=== PATIENT | female | born 1955 | race Caucasian/White ===

== ENCOUNTER 2016-08-11 07:44 | Inpatient (IN) | payer OTHER ==
[2016-08-11] VITALS (9 sets, daily range): BP systolic 117–164; BP diastolic 80–98; PULSE 104–126; RESP 18–22; TEMP 98–98.7; O2SAT 92–94
[~2016-08-11] VITALS: Ht 165.1 cm; Wt 80.2 kg
[~2016-08-11 07:44] MED LIST: ALBU0.086 NEB; AMBI10TA PO; BUDE.5I INH; LEVO.2 PO; OXYC15TA PO; OXYC40TA20 PO; POLY119S PO; SENN8.6T15 PO; ZOFR4TAB3 SL; ZOLP10TA3 PO; [UNRECOGNIZED DRUG - CODE] IV
[2016-08-11] MEDS ORDERED: OXYC15TA PO (08:15)
[2016-08-11] MEDS ORDERED: OXYC60TA8 PO (08:15)
[2016-08-11] MEDS ORDERED: PRED20 PO (08:15)
[2016-08-11] MEDS ORDERED: PROC10TA PO (08:15)
[2016-08-11] MEDS ORDERED: ZOLP10TA3 PO (08:15)
[2016-08-11] MEDS ORDERED: ZOFR4TAB PO (08:15)
[2016-08-11] MEDS ORDERED: LEVO.2 PO (08:15)
--- NOTE | 2016-08-11 08:15 | PD ---
HPI Chief Complaint: Respiratory Symptoms Time Seen by Provider: 08:14 Travel History International Travel<30 days: No Contact w/Intl Traveler<30days: No Traveled to known affect area: No History of Present Illness HPI 61-year-old female came to the emergency room with history of shortness of breath and fever. Patient has history of metastatic breast cancer and currently going through chemotherapy. Metastasis is to the lung. Patient was afebrile in triage but her heart rate has been in 120s. She looks to be in distress. Oxygen saturation is 94% on room air. Her oncologist is Dr. Grimaldo and patient has asked me to have her involved. Patient says that she has been sick since past 4 days. Her oncologist started her on by mouth ciprofloxacin for URI symptoms. Patient has been taking the antibiotic that she supposed to but symptoms are not improving. No history of chest pain. Her temperature yesterday was 101 and she had taken last Tylenol yesterday. Patient has history of COPD. [facility] Past Medical History Narrative Medical List of her past medical, surgical, social and family history was reviewed from the nursing note. 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) High Cholesterol: No Chemotherapy: Yes Chest Pain: No Congestive Heart Failure: No COPD: No Cerebrovascular Accident: No Diabetes: No Diminished Hearing: No Diverticulitis: Yes Endocrine: No Gastrointestinal Disorders: Yes (diverticulitis) GERD: No Glaucoma: No Genitourinary: No Headaches: Yes Hepatitis: No Hiatal Hernia: No Hypertension: No Immune Disorder: No Implanted Vascular Access Dvce: Yes (PORT RIGHT CHEST) Kidney Stones: No Musculoskeletal: No Neurologic: No Psychiatric: No Reproductive: No Respiratory: Yes (BREAST CA METS TO LUNG; LOBECTOMY R) Immunizations Current: Yes Migraines: Yes Myocardial Infarction: No Radiation Therapy: Yes Renal Failure: No Seizures: No Sickle Cell Disease: No Sleep Apnea: No Thyroid Disease: Yes (HYPOTHYROID) Ulcer: No Tetanus Vaccination: > 5 Years Influenza Vaccination: No PNEUMOCCOCAL Vaccine (Year): 1 Menopausal: Yes Dilation and Curettage (D&C): Yes Past Surgical History Abdominal Surgery: Yes AICD: No Appendectomy: No Arteriovenous Shunt: No Cardiac Surgery: No Cholecystectomy: Yes Ear Surgery: No Endocrine Surgery: No Eye Surgery: No Genitourinary Surgery: No Gynecologic Surgery: Yes (R UPPER lobectomy 2012 mastectomy 2010) Hysterectomy: Yes Insulin Pump: No Joint Replacement: No Mastectomy: Yes (LEFT BREAST) Neurologic Surgery: No Oral Surgery: No Pacemaker: No Thoracic Surgery: Yes (RIGHT LOBECTOMY) Other Surgery: Yes (SINUS SX) Social History Alcohol Use: Yes (RARELY PER PT) Tobacco Use: No Substance Use: No (PT DENIES) Allergies-Medications (Allergen,Severity, Reaction): Coded Allergies: Flagyl (Verified Allergy, Severe, Nausea/Vomiting, 08/11/16) Eribulin (Verified Adverse Reaction, Mild, Itching, 08/11/16) Pt denies allergy Uncoded Allergies: Transpore Tape (Allergy, Mild, Rash, 05/14/16) Comments List of her allergies reviewed from the nursing note. Reported Meds & Prescriptions Reported Meds & Active Scripts Active Reported Dilaudid 4 mg/ml Syringe (Hydromorphone HCl/Pf) 4 Mg/1 Ml Syringe 4 Mg IV PUSH Q4-6H Pulmicort Respules (Budesonide) 0.5 Mg/2 Ml Neb 0.5 Mg NEB Q12HR NEB Albuterol Neb (Albuterol Sulfate) 2.5 Mg/0.5 Ml Neb 2.5 Mg NEB Q4HR NEB PRN Note: The Albuterol Sulfate Inhalation Solution is concentrated and must be diluted. Read complete instructions carefully before using. Cipro (Ciprofloxacin HCl) 250 Mg Tab 250 Mg PO BID Prochlorperazine Maleate 10 Mg Tab 10 Mg PO Q4H PRN Zofran (Ondansetron HCl) 4 Mg Tab 4 Mg PO Q6HR PRN Prednisone 20 Mg Tab 20 Mg PO DAILY Oxycontin (Oxycodone HCl) 60 Mg Tab 60 Mg PO Q12HR Oxycodone (Oxycodone HCl) 15 Mg Tab 15 Mg PO Q6H PRN Zolpidem (Zolpidem Tartrate) 10 Mg Tab 10 Mg PO HS PRN Synthroid (Levothyroxine Sodium) 200 Mcg Tab 200 Mcg PO DAILY Narrative Medication List of her home medications reviewed from the nursing note. Review of Systems Except as stated in HPI: all other systems reviewed are Neg Physical Exam Narrative GENERAL: Awake, alert, moderate distress, anxious SKIN: Focused skin assessment warm/dry. HEAD: Atraumatic. Normocephalic. EYES: Pupils equal and round. No scleral icterus. No injection or drainage. ENT: No nasal bleeding or discharge. Mucous membranes pink and moist. NECK: Trachea midline. No JVD. CARDIOVASCULAR: Regular rate and rhythm. No murmur appreciated. RESPIRATORY: Tachypnea, using accessory muscles, coarse crackles and wheeze heard over the left upper lobe. GASTROINTESTINAL: Abdomen soft, non-tender, nondistended. Hepatic and splenic margins not palpable. MUSCULOSKELETAL: No obvious deformities. No clubbing. No cyanosis. No edema. NEUROLOGICAL: Awake and alert. No obvious cranial nerve deficits. Motor grossly within normal limits. Normal speech. PSYCHIATRIC: Appropriate mood and affect; insight and judgment normal. Data Data Last Documented VS Vital Signs Date Time Temp Pulse Resp B/P Pulse Ox O2 Delivery O2 Flow Rate FiO2 08/11/16 09:18 122 22 118/84 94 Room Air 08/11/16 07:45 98.7 Orders Electrocardiogram (08/11/16 08:21) Complete Blood Count With Diff (08/11/16 08:21) Comprehensive Metabolic Panel (08/11/16 08:21) Lactic Acid Sepsis Protocol (08/11/16 08:21) Urinalysis - C+S If Indicated (08/11/16 08:21) Blood Culture (08/11/16 08:21) Chest, Single Ap (08/11/16 08:21) Blood Glucose (08/11/16 08:21) Ecg Monitoring (08/11/16 08:21) Iv Access Insert/Monitor (08/11/16 08:21) Oximetry (08/11/16 08:21) Oxygen Administration (08/11/16 08:21) Vancomycin Inj (Vancomycin Inj) (08/11/16 08:21) Cefepime Inj (Maxipime Inj) (08/11/16 08:21) Methylprednisolone So Succ Inj (Solumedr (08/11/16 08:30) Albuterol-Ipratropium Neb (Duoneb Neb) (08/11/16 08:30) Sodium Chlor 0.9% 1000 Ml Inj (Ns 1000 M (08/11/16 08:30) Sodium Chlor 0.9% 1000 Ml Inj (Ns 1000 M (08/11/16 08:30) Hydromorphone Pf Inj (Dilaudid Pf Inj) (08/11/16 09:00) Admit Order (Ed Use Only) (08/11/16 10:10) Labs Laboratory Tests Test 08/11/16 08:25 White Blood Count 8.7 TH/MM3 Red Blood Count 4.03 MIL/MM3 Hemoglobin 11.5 GM/DL Hematocrit 35.4 % Mean Corpuscular Volume 87.8 FL Mean Corpuscular Hemoglobin 28.6 PG Mean Corpuscular Hemoglobin 32.6 % Concent Red Cell Distribution Width 15.7 % Platelet Count 206 TH/MM3 Mean Platelet Volume 7.7 FL Neutrophils (%) (Auto) 89.8 % Lymphocytes (%) (Auto) 4.9 % Monocytes (%) (Auto) 4.3 % Eosinophils (%) (Auto) 0.4 % Basophils (%) (Auto) 0.6 % Neutrophils # (Auto) 7.8 TH/MM3 Lymphocytes # (Auto) 0.4 TH/MM3 Monocytes # (Auto) 0.4 TH/MM3 Eosinophils # (Auto) 0.0 TH/MM3 Basophils # (Auto) 0.1 TH/MM3 CBC Comment DIFF FINAL Differential Comment Sodium Level 138 MEQ/L Potassium Level 3.8 MEQ/L Chloride Level 99 MEQ/L Carbon Dioxide Level 32.9 MEQ/L Anion Gap 6 MEQ/L Blood Urea Nitrogen 13 MG/DL Creatinine 0.75 MG/DL Estimat Glomerular Filtration 78 ML/MIN Rate Random Glucose 173 MG/DL Lactic Acid Level 2.1 mmol/L Calcium Level 9.0 MG/DL Total Bilirubin 0.4 MG/DL Aspartate Amino Transf 17 U/L (AST/SGOT) Alanine Aminotransferase 25 U/L (ALT/SGPT) Alkaline Phosphatase 80 U/L Total Protein 7.3 GM/DL Albumin 3.5 GM/DL [facility] Medical Decision Making Medical Screen Exam Complete: Yes Emergency Medical Condition: Yes Medical Record Reviewed: Yes Interpretation(s) Twelve-lead EKG was reviewed by me. Normal sinus rhythm, normal axis, tachycardia, nonspecific ST-T wave changes. Heart rate of 125 bpm. Differential Diagnosis Pneumonia, sepsis, neutropenic fever Narrative Course 8:50 AM I discussed the case with Dr. Grimaldo. 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 Her cancer at this point is well controlled but did continue with the chemotherapy just to be on the safe side. 9:49 AM blood test results are back. Patient's lactic acid is elevated to some extent. Chest x-ray does not show any new changes. At this point I would prefer the patient to be admitted. Her heart rate was in [address] Grimaldo patient's baseline heart rate is in 100s. So her presenting heart rate and the current heart rate is more than her usual. Awaiting for the hospitalist to call back. Critical Care Narrative Aggregate critical care time was 30 minutes. Time to perform other separately billable procedures was not included in the critical care time. My time did not include minutes spent treating any other patients simultaneously or on activities that did not directly contribute to the patient's treatment. The services I provided to this patient were to treat and/or prevent clinically significant deterioration that could result in: Sepsis I provided critical care services requiring my management, as noted below: Chart data review, documentation time, medication orders and management, vital sign assessments/reviewing monitor data, ordering and reviewing lab tests, ordering and interpreting/reviewing x-rays and diagnostic studies, care of the patient and discussion of the patient with the admitting physicians. Procedures EKG Prior to Arrival: No Physician Communication Physician Communication Dr. Grimaldo Diagnosis Primary Impression: Sepsis Qualified Code: A41.9 - Sepsis, due to unspecified organism Additional Impression: Metastatic breast cancer Admitting Information Admitting Physician Requests: Cherry George MD Aug 11, 2016 08:15
[2016-08-11] MEDS ORDERED: CIPR250T52 PO (08:16)
[2016-08-11] MEDS ORDERED: VANCOMYCIN INJ 1 MG in SODIUM CHLOR 0.9% 250 ML INJ 250 ML IV STA (08:21)
[2016-08-11] MEDS ORDERED: [UNRECOGNIZED DRUG - CODE] IV PUSH (08:21)
[2016-08-11] MEDS ORDERED: BUDE.5I NEB (08:21)
[2016-08-11] MEDS ORDERED: CEFEPIME INJ 2,000 MG in SODIUM CHLORIDE 0.9% INJ 100 ML IV STA (08:21)
[2016-08-11] MEDS ORDERED: ALBU.5I NEB (08:21)
[2016-08-11] MEDS ORDERED: methylPREDNISolone SOD SUCC 125 MG/2 ML VIAL IVP ONE (08:30)
[2016-08-11] MEDS ORDERED: SODIUM CHLOR 0.9% 1000 ML INJ 1,000 ML IV ONE ×2 (08:30)
[2016-08-11] MEDS: RESP: ALBUTEROL 2.5 MG/IPRATROPIUM 0.5 MG NEB (SCH) INH (08:39)
[2016-08-11 08:40] LABS: AUTOMATED NEUTROPHIL # 7.8 TH/MM3 (1.8-7.7); BASOPHIL # 0.1 TH/MM3 (0-0.2); BASOPHIL % 0.6 % (0.0-2.0); EOSINOPHIL % 0.4 % (0.0-4.0); HEMATOCRIT 35.4 % (35.0-46.0); HEMO FLAGS DIFF FINAL; LYMPH % 4.9 % (9.0-44.0); LYMPHOCYTE # 0.4 TH/MM3 (1.0-4.8); MEAN CELL VOLUME 87.8 FL (80.0-100.0); MEAN CORPUSCULAR HEMOGLOBIN 28.6 PG (27.0-34.0); MEAN CORPUSCULAR HGB CONC 32.6 % (32.0-36.0); MONO % 4.3 % (0.0-8.0); NEUT % 89.8 % (16.0-70.0); PLATELET COUNT 206 TH/MM3 (150-450); RED BLOOD COUNT 4.03 MIL/MM3 (4.00-5.30); RED CELL DISTRIBUTION WIDTH 15.7 % (11.6-17.2); WHITE BLOOD COUNT 8.7 TH/MM3 (4.0-11.0)
[2016-08-11 08:53] LABS: ALT (GPT) 25 U/L (10-53); ANION GAP 6 MEQ/L (5-15); AST (GOT) 17 U/L (15-37); BICARBONATE 32.9 MEQ/L (21.0-32.0); BLOOD UREA NITROGEN 13 MG/DL (7-18); CHLORIDE 99 MEQ/L (98-107); GLOMERULAR FILTRATION RATE 78 ML/MIN (>89); POTASSIUM 3.8 MEQ/L (3.5-5.1); SODIUM (NA) 138 MEQ/L (136-145)
[2016-08-11 08:56] LABS: ALKALINE PHOSPHATASE 80 U/L (45-117); TOTAL BILIRUBIN ADULT 0.4 MG/DL (0.2-1.0)
[2016-08-11] MEDS ORDERED: HYDROmorphone HCL PF 4 MG/ML VIAL IV PUSH ONE (09:00)
--- NOTE | 2016-08-11 09:43 | RADRPT ---
EXAM DATE/TIME: 08/11/2016 08:35 [facility] COMPARISON: CHEST SINGLE AP, February 05, 2015, 14:50. INDICATIONS : Shortness of breath. MEDICAL HISTORY : Carcinoma, breast. Cardiovascular disease. Asthma SURGICAL HISTORY : Lobectomy. Mastectomy, left. Infusaport ENCOUNTER: Initial ACUITY: 2 days PAIN SCORE: 0/10 LOCATION: Bilateral chest FINDINGS: Patient has a [id number]-Hjao in the right chest. There is elevation of the right hemidiaphragm. Cons olidative changes are seen in right upper lobe. The left lung is clear. Heart and pulmonary vascula rity are normal. CONCLUSION: 1. Stable chest when compared to 02/05/15. Fezygy-C-Huuy in good position. 2. Consolidative changes are seen in most of the upper lobe probably postsurgical in nature. Franky Winston MD FACR on August 11, 2016 at 9:30 Board Certified Radiologist. This report was verified electronically.
[2016-08-11] MEDS ORDERED: SODIUM CHLORIDE 0.9% FLUSH 10 ML FLUSH IV FLUSH PRN (10:30)
[2016-08-11] MEDS ORDERED: ONDANSETRON HCL 4 MG/2 ML VIAL IVP PRN (10:30)
[2016-08-11] MEDS ORDERED: ACETAMINOPHEN 325 MG TAB PO PRN ×2 (10:30)
[2016-08-11] MEDS ORDERED: NALOXONE HCL 0.4 MG/ML AMP IV PRN (10:30)
[2016-08-11] MEDS ORDERED: MAGNESIUM HYDROXIDE SUSP 30 ML CUP PO PRN (10:30)
[2016-08-11] MEDS ORDERED: ENALAPRILAT 1.25 MG/ML VIAL IV PUSH PRN (10:30)
[2016-08-11 10:34] LABS: LACTIC ACID GHOST NOT REPORTABLE
[2016-08-11 11:30] LABS: BLOOD, URINE NEG (NEG); GLUCOSE,URINE NEG (NEG); HYALINE CAST, URINE 1 /lpf (RARE); KETONE, URINE NEG (NEG); MUCUS URINE FEW /lpf (OCC); NITRITE,URINE NEG (NEG); SQUAMOUS EPITHELIAL CELL URINE <1 /hpf (0-5); URINE COLOR YELLOW (YELLW/STRAW)
[2016-08-11 11:33] LABS: COMMENT (UR) CATH-CULTURE IND; CULTURE IF INDICATED CATH CULTURE IND
[2016-08-11] MEDS: RESP: ALBUTEROL 2.5 MG/IPRATROPIUM 0.5 MG NEB (PRN) NEB ×2 (13:04→23:38)
[2016-08-11] MEDS: HYDROmorphone HCL PF 4 MG/ML VIAL IV PUSH SCH ×2 (14:59→20:38)
--- NOTE | 2016-08-11 15:07 | HHI.HP ---
HPI Service [facility] Primary Care Physician Hussein Hansen MD Admission Diagnosis sepsis, respiratory symptoms, history of breast cancer Diagnoses: (1) Sepsis (2) Community acquired bacterial pneumonia (3) Failure of outpatient treatment (4) Metastatic breast cancer Chief Complaint: Worsening cough production Travel History International Travel<30 Days: No Contact w/Intl Traveler <30 Da: No Traveled to Known Affected Are: No Sepsis Criteria SIRS Criteria (2 or more): Heart rate over 90, RR > 20 or PaCO2 < 32 Sepsis Criteria (SIRS+source): Infect source susp/known Criteria Outcome: Meets sepsis criteria History of Present Illness 61-year-old female with a history of metastasis breast cancer, radiation induced pneumonitis presented to the ED for evaluation of worsening cough production described as greenish and brown, subjective fever along with shortness of breath. Patient was diagnosed with upper respiratory infection on 08/07/16 and started on Cipro 500 mg by mouth twice a day however continue to have worsening URI symptoms despite treatment with Tylenol for the fever of 100.1 yesterday 08/10/16. Patient also reported worsening of shortness of breath despite nebulizer treatment. On admissions, vitals temperature 98.7, HR 126, RR 20, BP 117/88 with oxygen saturation room air 94%. Abnormal lab include lactic acid 2.1. Patient denies any hematuria, GI bleed. Review of Systems Except as stated in HPI: all other systems reviewed are Neg Past Family Social History Past Medical History Alopecia Anemia Asthma Chronic pain on opioids Diverticulosis Hyperglycemia Hypothyroidism Migraines Breast cancer Past Surgical History Cholecystectomy Hysterectomy Knee surgery Tonsillectomy Bilateral tubal ligation Right upper lobectomy in 2011 Mastectomy 2010 Reported Medications Dilaudid 4 mg/ml Syringe (Hydromorphone HCl/Pf) 4 Mg/1 Ml Syringe 4 Mg IV PUSH Q4-6H Pulmicort Respules (Budesonide) 0.5 Mg/2 Ml Neb 0.5 Mg NEB Q12HR NEB Albuterol Neb (Albuterol Sulfate) 2.5 Mg/0.5 Ml Neb 2.5 Mg NEB Q4HR NEB PRN Note: The Albuterol Sulfate Inhalation Solution is concentrated and must be diluted. Read complete instructions carefully before using. Cipro (Ciprofloxacin HCl) 250 Mg Tab 250 Mg PO BID Prochlorperazine Maleate 10 Mg Tab 10 Mg PO Q4H PRN Zofran (Ondansetron HCl) 4 Mg Tab 4 Mg PO Q6HR PRN Prednisone 20 Mg Tab 20 Mg PO DAILY Oxycontin (Oxycodone HCl) 60 Mg Tab 60 Mg PO Q12HR Oxycodone (Oxycodone HCl) 15 Mg Tab 15 Mg PO Q6H PRN Zolpidem (Zolpidem Tartrate) 10 Mg Tab 10 Mg PO HS PRN Synthroid (Levothyroxine Sodium) 200 Mcg Tab 200 Mcg PO DAILY Allergies: Coded Allergies: Flagyl (Verified Allergy, Severe, Nausea/Vomiting, 08/11/16) Eribulin (Verified Adverse Reaction, Mild, Itching, 08/11/16) Pt denies allergy Uncoded Allergies: Transpore Tape (Allergy, Mild, Rash, 05/14/16) Family History Both parents and mom from complication of coronary heart disease Social History Alcohol Use: Yes (RARELY PER PT) Tobacco Use: No Substance Use: No (PT DENIES) Physical Exam Vital Signs Vital Signs Date Time Temp Pulse Resp B/P Pulse Ox O2 Delivery O2 Flow Rate FiO2 08/11/16 11:46 98.1 118 20 125/81 94 Room Air 08/11/16 10:45 18 08/11/16 09:18 122 22 118/84 94 Room Air 08/11/16 08:33 18 94 Room Air 08/11/16 08:33 94 Room Air 08/11/16 08:00 125 16 94 Room Air 08/11/16 07:45 98.7 126 20 117/88 94 Room Air Physical Exam GENERAL: This is a well-nourished, well-developed patient, in no apparent distress. SKIN: No rashes, ecchymoses or lesions. Cool and dry. HEAD: Atraumatic. Normocephalic. No temporal or scalp tenderness. EYES: Pupils equal round and reactive. Extraocular motions intact. No scleral icterus. No injection or drainage. ENT: Nose without bleeding, purulent drainage or septal hematoma. Throat without erythema, tonsillar hypertrophy or exudate. Uvula midline. Airway patent. NECK: Trachea midline. No JVD or lymphadenopathy. Supple, nontender, no meningeal signs. CARDIOVASCULAR: Regular rate and rhythm without murmurs, gallops, or rubs. RESPIRATORY: Clear to auscultation. Breath sounds decrease bilaterally. + wheezes, rales, GASTROINTESTINAL: Abdomen soft, non-tender, nondistended. No hepato-splenomegaly , or palpable masses. No guarding. MUSCULOSKELETAL: Extremities without clubbing, cyanosis, or edema. No joint tenderness, effusion, or edema noted. No calf tenderness. Negative Homans sign bilaterally. NEUROLOGICAL: Awake and alert. Cranial nerves II through XII intact. Motor and sensory grossly within normal limits. Five out of 5 muscle strength in all muscle groups. Normal speech. Laboratory Laboratory Tests Test 08/11/16 08/11/16 08/11/16 08:25 10:40 11:03 White Blood Count 8.7 Red Blood Count 4.03 Hemoglobin 11.5 Hematocrit 35.4 Mean Corpuscular Volume 87.8 Mean Corpuscular Hemoglobin 28.6 Mean Corpuscular Hemoglobin 32.6 Concent Red Cell Distribution Width 15.7 Platelet Count 206 Mean Platelet Volume 7.7 Neutrophils (%) (Auto) 89.8 Lymphocytes (%) (Auto) 4.9 Monocytes (%) (Auto) 4.3 Eosinophils (%) (Auto) 0.4 Basophils (%) (Auto) 0.6 Neutrophils # (Auto) 7.8 Lymphocytes # (Auto) 0.4 Monocytes # (Auto) 0.4 Eosinophils # (Auto) 0.0 Basophils # (Auto) 0.1 CBC Comment DIFF FINAL Differential Comment Sodium Level 138 Potassium Level 3.8 Chloride Level 99 Carbon Dioxide Level 32.9 Anion Gap 6 Blood Urea Nitrogen 13 Creatinine 0.75 Estimat Glomerular Filtration 78 Rate Random Glucose 173 Lactic Acid Level 2.1 1.6 Calcium Level 9.0 Total Bilirubin 0.4 Aspartate Amino Transf 17 (AST/SGOT) Alanine Aminotransferase 25 (ALT/SGPT) Alkaline Phosphatase 80 Total Protein 7.3 Albumin 3.5 Urine Color YELLOW Urine Turbidity CLEAR Urine pH 6.0 Urine Specific [place] 1.015 Urine Protein NEG Urine Glucose (UA) NEG Urine Ketones NEG Urine Occult Blood NEG Urine Nitrite NEG Urine Bilirubin NEG Urine Urobilinogen LESS THAN 2.0 Urine Leukocyte Esterase TRACE Urine RBC LESS THAN 1 Urine WBC 7 Urine Squamous Epithelial <1 Cells Urine Hyaline Casts 1 Urine Mucus FEW Microscopic Urinalysis Comment CATH-CULTURE IND Date/Time Procedure Status Source Growth 08/11/16 10:40 Urine Culture Received Urine Catheterized Urine Pending 08/11/16 08:30 Aerobic Blood Culture Received Blood Peripheral Pending 08/11/16 08:30 Anaerobic Blood Culture Received Blood Peripheral Pending Result Diagram: 08/11/1682408/11/16824 Assessment and Plan Problem List: (1) Community acquired bacterial pneumonia ICD Code: J15.9 Status: Acute (2) Failure of outpatient treatment ICD Code: Z78.9 Status: Acute (3) Sepsis ICD Code: A41.9 Status: Acute (4) Metastatic breast cancer ICD Code: C50.919 Status: Acute Assessment and Plan 61-year-old female with Sepsis: Meets sepsis criteria; source (PNA) Heart rate over 90, RR > 20 or PaCO2 < 32, lactic acid 2.1; status post cefepime IV 1 in ED, continue with antibiotics pending culture report Community-acquired pneumonia Outpatient therapy failure for upper respiratory infection Chest x-ray noted and review by me with consolidative changes in upper lung Cefepime 2 mg IV every 8H Check pneumococcal and Legionella urinary antigens as well as Flu A and B antigens Maintain oxygen saturation above 90% History of radiation induced pneumonitis COPD exacerbation Start Solu-Medrol 40 mg every 12 hour, cefepime,Symbicort, Mucinex, DuoNeb scheduled and when necessary Chronic pain syndrome Dilaudid schedule IV and OxyContin for breakthrough pain Scheduled softener Hypothyroidism Resume Synthroid History of metastasis breast cancer Consult patient's oncologist DVT prophylaxis: Heparin Code Status Full code Discussed Condition With Patient, ED physician Physician Certification 2 Midnight Certification Type: Admission for Inpatient Services Order for Inpatient Services The services are ordered in accordance with Medicare regulations or non- Medicare payer requirements, as applicable. In the case of services not specified as inpatient-only, they are appropriately provided as inpatient services in accordance with the 2-midnight benchmark. Estimated LOS (days): 2 days is the estimated time the patient will need to remain in the hospital, assuming treatment plan goals are met and no additional complications. Post-Hospital Plan: Not yet determined Problem Qualifiers (1) Sepsis: Qualified Code: A41.9 - Sepsis, due to unspecified organism Jeremy Nunn MD Aug 11, 2016 15:07
[2016-08-11] MEDS: oxyCODONE HCL 20 MG CONTROLLED RELEASE TAB PO PRN ×2 (18:14→21:54)
[2016-08-11] MEDS: CEFEPIME INJ 2,000 MG in SODIUM CHLORIDE 0.9% INJ 100 ML IV SCH (18:34)
[2016-08-11] MEDS ORDERED: SODIUM CHLOR 0.9% 250 ML INJ 250 ML IV ONE (19:00)
[2016-08-11] MEDS: RESP: BUDESONIDE 0.5 MG/2 ML NEB NEB SCH (19:02)
[2016-08-11] MEDS: RESP: ALBUTEROL 2.5 MG/IPRATROPIUM 0.5 MG NEB (SCH) NEB (19:02)
[2016-08-11] MEDS: methylPREDNISolone SOD SUCC 40 MG/1 ML VIAL IV PUSH SCH (20:37)
[2016-08-11] MEDS: ENOXAPARIN SODIUM 40 MG/0.4 ML SYRINGE SQ SCH (20:37)
[2016-08-11] MEDS: LACTOBACILLUS ACIDOPHILUS TAB PO SCH (20:38)
[2016-08-11] MEDS: SODIUM CHLORIDE 0.9% FLUSH 10 ML FLUSH IV FLUSH SCH (20:39)
[2016-08-11] MEDS ORDERED: IOHEXOL 350 MG/ML 10 ML VIAL (for RAD DIAG) IV ONE (22:19)
--- NOTE | 2016-08-11 22:30 | RADRPT ---
EXAM DATE/TIME: 08/11/2016 22:12 [facility] COMPARISON: No previous studies available for comparison. INDICATIONS : Hypoxia. IV CONTRAST: 73 cc Omnipaque 350 (iohexol) IV RADIATION DOSE: 6.83 CTDIvol (mGy) MEDICAL HISTORY : Cardiovascular disease. Carcinoma, breast. SURGICAL HISTORY : Mastectomy, left. Lobectomy. ENCOUNTER: Initial ACUITY: 1 day PAIN SCALE: 0/10 LOCATION: chest TECHNIQUE: Volumetric scanning of the chest was performed. Using automated exposure control and adjustment of t he mA and/or kV according to patient size, radiation dose was kept as low as reasonably achievable to obtain optimal diagnostic quality images. FINDINGS: Chronic scarring, pleural thickening and volume loss again noted on the right. Left lung is clear. No pneumothorax. No pleural effusion. Heart size stable, normal. No adenopathy demonstrated. There is a right subclavian central venous catheter with tip in the superior vena cava. Left mastectomy changes again noted. No lytic or sclerotic lesion seen of the visualized osseous structures. CONCLUSION: No acute abnormality demonstrated. Chronic scarring, pleural thickening and volume loss again noted o n the left. Previous left mastectomy. Corey Loomis MD on August 11, 2016 at 22:25 Board Certified Radiologist. This report was verified electronically.
[2016-08-12] VITALS (8 sets, daily range): BP systolic 122–143; BP diastolic 73–90; PULSE 80–116; RESP 18–20; TEMP 97.3–98.2; O2SAT 93–96
[2016-08-12] MEDS: HYDROmorphone HCL PF 4 MG/ML VIAL IV PUSH SCH ×5 (03:11→21:23)
[2016-08-12] MEDS: CEFEPIME INJ 2,000 MG in SODIUM CHLORIDE 0.9% INJ 100 ML IV SCH ×3 (03:11→15:51)
[2016-08-12] MEDS: LEVOTHYROXINE SODIUM 200 MCG TAB PO SCH (06:08)
[2016-08-12 06:27] LABS: AUTOMATED NEUTROPHIL # 9.2 TH/MM3 (1.8-7.7); BASOPHIL % 0.3 % (0.0-2.0); HEMATOCRIT 32.8 % (35.0-46.0); HEMO FLAGS DIFF FINAL; LYMPH % 4.6 % (9.0-44.0); LYMPHOCYTE # 0.5 TH/MM3 (1.0-4.8); MEAN CELL VOLUME 87.5 FL (80.0-100.0); MEAN CORPUSCULAR HEMOGLOBIN 29.9 PG (27.0-34.0); MEAN CORPUSCULAR HGB CONC 34.2 % (32.0-36.0); MONO % 3.5 % (0.0-8.0); NEUT % 91.6 % (16.0-70.0); PLATELET COUNT 231 TH/MM3 (150-450); RED BLOOD COUNT 3.75 MIL/MM3 (4.00-5.30); RED CELL DISTRIBUTION WIDTH 16.1 % (11.6-17.2)
[2016-08-12 06:51] LABS: ALT (GPT) 24 U/L (10-53); ANION GAP 5 MEQ/L (5-15); AST (GOT) 15 U/L (15-37); BICARBONATE 31.9 MEQ/L (21.0-32.0); BLOOD UREA NITROGEN 14 MG/DL (7-18); CHLORIDE 100 MEQ/L (98-107); GLOMERULAR FILTRATION RATE 82 ML/MIN (>89); POTASSIUM 4.3 MEQ/L (3.5-5.1); SODIUM (NA) 137 MEQ/L (136-145)
--- NOTE | 2016-08-12 06:52 | MB ---
cc: ROCKY FLEMING RUBY ANNE E. M.D. DATE OF CONSULTATION 08/11/[address] Rocky Fleming CHIEF COMPLAINT Dr. Fleming requested consultation for Mrs. Beavers regarding right upper lung pneumonia and respiratory insufficiency. 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 She had definitive treatment in the right upper lung area. She has been on maintenance Halaven ever since. Her last CT/PET scan from July 08, 2016, shows no progression. She has no distant site of metastatic disease. She has chronic changes in the right upper lung which is the main reason for her symptoms. She was last seen in clinic on Thursday prior to her next cycle of chemotherapy. She received a dose of Halaven. She was already having some upper respiratory symptoms. She was not febrile. She was, however, on steroids of 20 mg of prednisone coordinated by Dr. Lala, her telecasting technician. Over the weekend she has started to feel bad. She had increasing shortness of breath and pain and discomfort in the chest. She describes her temperature as 100.1. This is despite being on Cipro. On admission her temperature is 98.7. She feels hot. She was very tachycardiac and her tachycardia improved after starting antibiotic therapy. Cultures were obtained, respiratory treatment initiated. Her pain was better controlled. She has had a bowel movement this morning. She needs bowel regimen as she tends to become constipated severely. The rest of her review of systems is negative. She reports being very busy at work recently. PAST MEDICAL HISTORY 1. Chemotherapy-induced anemia. 2. Asthma. 3. Right upper lung radiation pneumonitis. 4. Chronic pain. 5. Chronic anxiety. 6. Diverticulosis. 7. Hypothyroidism. 8. Migraine headaches. 9. Metastatic breast cancer. 10. DCIS. PAST SURGICAL HISTORY 1. Bronchoscopy. 2. Colonoscopy. 3. Cholecystectomy. 4. Hysterectomy. 5. Knee surgery. 6. Tonsillectomy. 7. tubal ligation. 8. Right upper lobectomy. 9. Mastectomy. ALLERGIES FLAGYL. TRANSPORE. SOCIAL HISTORY She denies any tobacco, alcohol or illicit drug use. She lives with her . FAMILY HISTORY Both parents are . No family history of breast cancer. CURRENT MEDICATIONS 1. Cefepime. 2. OxyContin 60 mg q.12 hours. 3. Hydromorphone 4 mg q.6 hours p.r.n. pain. 4. Albuterol. 5. Levothyroxine. 6. Lactinex. 7. Solu-Medrol 40 mg q.12 hours. 8. Protonix. 9. Tiffanie-Colace. PHYSICAL EXAMINATION VITAL SIGNS: Temperature 98.6, heart rate 104, respiratory rate 20, blood pressure 132/81, saturation 92%. GENERAL: Ms. Beavers is a well-developed, well-nourished woman who looks more tired than on previous examination. She has sparse eyebrows. Her a complexion is pale. HEENT: Her pupils are round, reactive to light and accommodation. Oropharynx is clear. NECK: Supple. LUNGS: With bilateral rhonchi and wheezing. There are transmitted sounds on the left side. CARDIOVASCULAR: Exam reveals a tachycardia. Left arm lymphedema. Significant chronic skin changes of the left chest wall. ABDOMEN: Benign. LOWER EXTREMITIES: With no edema. LABORATORY DATA Significant for a mild anemia with hemoglobin of 11.5, MCV is normal. White blood cell count and platelet count are normal. Chemistry is significant for elevated lactic acid at 2.1, glucose 173. Liver functions are normal. ASSESSMENT AND PLAN Mrs. Beavers is a 61-year-old woman with a history of metastatic/metaplastic breast cancer apparently in remission. She is on Halaven maintenance. Her last treatment was three days ago. I had a lengthy discussion with Mrs. Beavers, her upper respiratory symptoms. She may have postobstructive pneumonia. I am concerned about the right upper lung chronic consolidation. I will obtain a CT scan of the chest. The chest x-ray is not sensitive enough to evaluate the extent of her disease. Supervisor Whipped [employer]pping will be consulted. Her telecasting technician Dr. Shorty Lala does not come to the hospital currently. The case was discussed with Dr. Lala who recommended consulting the on-call telecasting technician. Sputum specimen will be sent if she is able to bring it up. In the meantime empiric antibiotic is started. We will monitor closely for fevers. She has had her port in for a long time. Cultures so far are negative up. We will repeat cultures if fever again occurs while on current antibiotic regimen. Her bowel regimen includes MiraLax. This will be ordered to continue. DVT prophylaxis will be started. Her questions were answered to her satisfaction. MD SARAH Bain/ALEXI /6:45 PM /6:43 AM
[2016-08-12 06:53] LABS: ALKALINE PHOSPHATASE 77 U/L (45-117); TOTAL BILIRUBIN ADULT 0.3 MG/DL (0.2-1.0)
[2016-08-12] MEDS: RESP: BUDESONIDE 0.5 MG/2 ML NEB NEB SCH ×2 (08:07→19:52)
[2016-08-12] MEDS: RESP: ALBUTEROL 2.5 MG/IPRATROPIUM 0.5 MG NEB (SCH) NEB ×3 (08:07→19:52)
--- NOTE | 2016-08-12 08:18 | MB ---
cc: ELVA LIN,CHRISTIAN Reeder M.D. DATE OF CONSULTATION: 08/11/[address] Grimaldo REASON FOR CONSULTATION Lung infiltrate. HISTORY OF PRESENT ILLNESS Ms. Beavers is a 62-year-old female with a history of metastatic breast cancer. She also developed metastasis in the right lung and she had a right upper lobectomy done in [place]. She says that she has been cancer-free for three years. She is getting chemotherapy with maintenance Halaven. She started having cough and congestion, worsening of shortness of breath and had a fever at home. With these symptoms she came to the hospital. She had a chest x-ray done. It shows stable chest with consolidative changes seen in most of the upper lobe, probably postsurgical in nature. Her CBC showed WBC count 8.7, hemoglobin 11.5, hematocrit 35.4, MCV 87, platelet count 206. Sodium 130, potassium 3.8, chloride 99, CO2 32.9, BUN 13, creatinine 0.75. PAST MEDICAL HISTORY 1. History of metastatic breast cancer. 2. History of right upper lobe lobectomy for removal of metastasis followed by radiation treatment. 3. Hysterectomy. 4. Cholecystectomy. 5. Scraping of the knee. 6. Chronic pain. 7. COPD and asthma; she requires frequent courses of steroids. MEDICATIONS 1. Protonix 40 mg a day. 2. Levothyroxine 200 mcg a day. 3. Solu-Medrol q.12h. 4. Nebulizer treatment. 5. Albuterol and Atrovent nebulizer treatment. 6. Cefepime 2 grams q.8h. 7. Oxycodone for pain. 8. Dilaudid p.r.n. for pain. ALLERGIES 1. ERIBULIN. 2. FLAGYL. 3. TRANSPORE TAPE. SOCIAL HISTORY She is . 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 Has a remote history of smoking. FAMILY HISTORY Has a son and daughter. REVIEW OF SYSTEMS She gets short of breath with activity. She does not require any oxygen, requires frequent courses of steroids. No seizure or stroke. No DVT or pulmonary embolism. PHYSICAL EXAMINATION GENERAL: A well-developed, well-nourished, anxious female, not in acute distress. VITAL SIGNS: Blood pressure 132/81, heart rate 104, respirations 22, temperature 98.6. Saturation 94% on room air. HEENT: Pupils are equal and reactive to light. Oral mucosa and nasal mucosa normal. NECK: Supple. JVP not raised. CHEST: She has bilateral scattered rhonchi and rales. She has a mastectomy. She has an Buunlt-R-Xaxx on the right side. CV: S1, S2 is normal. ABDOMEN: Benign. EXTREMITIES: No edema. IMPRESSION 1. Lung infiltrate, possible pneumonia, possible underlying consolidative changes because of postsurgical changes. 2. Status post right upper lobectomy. 3. History of CA of the breast with metastatic disease. 4. History of chronic pain. 5. Anxiety disorder. PLAN I discussed with the patient. She is going to go for a CT scan of the chest. Will review the CT scan. Continue her antibiotic IV, Solu-Medrol and aerosol treatment. Monitor her CBC. Further treatment will depend on the course in the hospital. Thank you Dr. Grimaldo for this consult. MD XAVIER Carbone/BT /8:38 PM /8:01 AM OCTAVIO
--- NOTE | 2016-08-12 08:51 | HHI.PR ---
Subjective Remarks Follow-up community-acquired bacteremia pneumonia 08/12/16-patient seen and examined, afebrile, positive for nonproductive cough, insomnia overnight Objective Vitals Vital Signs Date Time Temp Pulse Resp B/P Pulse Ox O2 Delivery O2 Flow Rate FiO2 08/12/16 05:20 97.4 104 18 129/79 94 08/11/16 23:55 98.0 111 18 123/83 92 08/11/16 21:18 98.5 116 18 164/98 92 148/86 08/11/16 20:00 Room Air 08/11/16 20:00 114 08/11/16 16:00 98.6 104 20 132/81 92 08/11/16 11:48 98.3 116 20 123/80 92 08/11/16 11:46 98.1 118 20 125/81 94 Room Air 08/11/16 10:45 18 08/11/16 09:18 122 22 118/84 94 Room Air I/O 08/11/16 08/11/16 08/11/16 08/12/16 08/12/16 08/12/16 07:00 15:00 23:00 07:00 15:00 23:00 Intake Total 720 ml 600 ml 480 ml Output Total 800 ml Balance 720 ml 600 ml -320 ml Intake Oral 720 ml 600 ml 480 ml IV Total 0 ml Output Urine Total 800 ml # Voids 4 4 # Bowel Movements 0 0 0 Result Diagram: 08/12/16 0615 08/12/16 0615 Imaging Last Impressions Chest X-Ray 08/11/16 0821 Signed Impressions: Service Date/Time: Thursday, August 11, 2016 08:35 - CONCLUSION: 1. Stable chest when compared to 02/05/15. [id number] in good position. 2. Consolidative changes are seen in most of the upper lobe probably postsurgical in nature. Franky Winston MD FACR Chest CT 08/11/16 0000 Signed Impressions: Service Date/Time: Thursday, August 11, 2016 22:12 - CONCLUSION: No acute abnormality demonstrated. Chronic scarring, pleural thickening and volume loss again noted on the left. Previous left mastectomy. Corey Loomis MD Objective Remarks GENERAL: NAD SKIN: Warm and dry. HEAD: Normocephalic. EYES: No scleral icterus. No injection or drainage. NECK: Supple, trachea midline. No JVD or lymphadenopathy. CARDIOVASCULAR: Regular rate and rhythm without murmurs, gallops, or rubs. RESPIRATORY: Breath sounds decreased bilaterally. Wheezings, GASTROINTESTINAL: Abdomen soft, non-tender, nondistended. MUSCULOSKELETAL: No cyanosis, or edema. BACK: Nontender without obvious deformity. No CVA tenderness. A/P Problem List: (1) Community acquired bacterial pneumonia ICD Code: J15.9 Status: Acute (2) Failure of outpatient treatment ICD Code: Z78.9 Status: Acute (3) Sepsis ICD Code: A41.9 Status: Acute (4) Metastatic breast cancer ICD Code: C50.919 Status: Acute Assessment and Plan 61-year-old female with Sepsis: Meets sepsis criteria; source (PNA) Heart rate over 90, RR > 20 or PaCO2 < 32, lactic acid 2.1; status post cefepime IV 1 in ED, continue with antibiotics pending culture report Community-acquired pneumonia Outpatient therapy failure for upper respiratory infection Chest x-ray with consolidative changes in upper lung CT chest noted and reviewed by me with finding of No acute abnormality demonstrated. Chronic scarring, pleural thickening and volume loss again noted on the left. Cefepime 2 mg IV every 8H Pneumococcal and Legionella urinary antigens pending. Flu A and B antigens negative Maintain oxygen saturation above 90% Appreciate input from pulmonary medicine History of radiation induced pneumonitis COPD exacerbation On Solu-Medrol 40 mg every 12 hour, cefepime,Symbicort, Mucinex, DuoNeb scheduled and when necessary CT chest noted and review Appreciate input from pulmonary medicine Steroid-induced hyperglycemia: Start prophylactic insulin sliding scale low Chronic pain syndrome Dilaudid schedule IV and OxyContin for breakthrough pain Scheduled softener Hypothyroidism Continue Synthroid Insomnia: Ambien when necessary History of metastasis breast cancer Appreciate input from patient's oncologist DVT prophylaxis: Lovenox Problem Qualifiers (1) Sepsis: Qualified Code: A41.9 - Sepsis, due to unspecified organism Jeremy Nunn MD Aug 12, 2016 08:51
[2016-08-12] MEDS ORDERED: POLYETHYLENE GLYCOL 17 GM PKG PO SCH (09:00)
[2016-08-12] MEDS ORDERED: DEXTROSE 50% IN WATER 50 ML VIAL(D50) IV PRN (09:00)
[2016-08-12] MEDS ORDERED: PANTOPRAZOLE SOD 40 MG DELAYED RELEASE TAB PO SCH (09:00)
[2016-08-12] MEDS ORDERED: GLUCAGON 1 MG/ML VIAL OTHER PRN (09:00)
--- NOTE | 2016-08-12 09:14 | PD.ONC.PN ---
Subjective Subjective Remarks Afebrile overnight. Patient continuing to have wet cough. She also has pain in the chest, improved with dilaudid pain medication. Not requiring supplemental O2. Objective Data Date Time Temp Pulse Resp B/P Pulse Ox O2 Delivery O2 Flow Rate FiO2 08/12/16 08:05 98.2 80 20 122/73 95 08/12/16 05:20 97.4 104 18 129/79 94 08/11/16 23:55 98.0 111 18 123/83 92 08/11/16 21:18 98.5 116 18 164/98 92 148/86 08/11/16 20:00 Room Air 08/11/16 20:00 114 08/11/16 16:00 98.6 104 20 132/81 92 08/11/16 11:48 98.3 116 20 123/80 92 08/11/16 11:46 98.1 118 20 125/81 94 Room Air 08/11/16 10:45 18 08/11/16 09:18 122 22 118/84 94 Room Air Result Diagram: 08/12/16 0615 08/12/16 0615 Laboratory Results Laboratory Tests Test 08/11/16 08/11/16 08/12/16 10:40 11:03 06:15 Urine Color YELLOW Urine Turbidity CLEAR Urine pH 6.0 Urine Specific [place] 1.015 Urine Protein NEG mg/dL Urine Glucose (UA) NEG mg/dL Urine Ketones NEG mg/dL Urine Occult Blood NEG Urine Nitrite NEG Urine Bilirubin NEG Urine Urobilinogen LESS THAN 2.0 MG/DL Urine Leukocyte Esterase TRACE Urine RBC LESS THAN 1 /hpf Urine WBC 7 /hpf Urine Squamous Epithelial <1 /hpf Cells Urine Hyaline Casts 1 /lpf Urine Mucus FEW /lpf Microscopic Urinalysis Comment CATH-CULTURE IND Lactic Acid Level 1.6 mmol/L White Blood Count 10.0 TH/MM3 Red Blood Count 3.75 MIL/MM3 Hemoglobin 11.2 GM/DL Hematocrit 32.8 % Mean Corpuscular Volume 87.5 FL Mean Corpuscular Hemoglobin 29.9 PG Mean Corpuscular Hemoglobin 34.2 % Concent Red Cell Distribution Width 16.1 % Platelet Count 231 TH/MM3 Mean Platelet Volume 8.1 FL Neutrophils (%) (Auto) 91.6 % Lymphocytes (%) (Auto) 4.6 % Monocytes (%) (Auto) 3.5 % Eosinophils (%) (Auto) 0.0 % Basophils (%) (Auto) 0.3 % Neutrophils # (Auto) 9.2 TH/MM3 Lymphocytes # (Auto) 0.5 TH/MM3 Monocytes # (Auto) 0.3 TH/MM3 Eosinophils # (Auto) 0.0 TH/MM3 Basophils # (Auto) 0.0 TH/MM3 CBC Comment DIFF FINAL Differential Comment Sodium Level 137 MEQ/L Potassium Level 4.3 MEQ/L Chloride Level 100 MEQ/L Carbon Dioxide Level 31.9 MEQ/L Anion Gap 5 MEQ/L Blood Urea Nitrogen 14 MG/DL Creatinine 0.72 MG/DL Estimat Glomerular Filtration 82 ML/MIN Rate Random Glucose 222 MG/DL Calcium Level 9.1 MG/DL Total Bilirubin 0.3 MG/DL Aspartate Amino Transf 15 U/L (AST/SGOT) Alanine Aminotransferase 24 U/L (ALT/SGPT) Alkaline Phosphatase 77 U/L Total Protein 7.2 GM/DL Albumin 3.3 GM/DL Culture Results Microbiology Date/Time Procedure Status Source Growth 08/11/16 08:25 Aerobic Blood Culture Received Blood Peripheral Pending 08/11/16 08:25 Anaerobic Blood Culture Received Blood Peripheral Pending 08/11/16 08:30 Aerobic Blood Culture Received Blood Peripheral Pending 08/11/16 08:30 Anaerobic Blood Culture Received Blood Peripheral Pending 08/11/16 10:40 Urine Culture Received Urine Catheterized Urine Pending 08/11/16 10:40 Legionella Antigen Received Urine Clean Catch Pending 08/11/16 10:40 Streptococcus pneumoniae Antigen (M Received Urine Clean Catch Pending 08/12/16 00:30 Influenza Types A,B Antigen (ALEXA) - Final Complete Nasal Washing NEGATIVE FOR FLU A AND B ANTIGEN.... Administered Medications Medications (Trade) Dose Ordered Sig/Diana Route PRN Reason Start Time Stop Time Status Last Admin Dose Admin Sodium Chloride (NS Flush) 2 ml BID IV FLUSH 08/11/16 21:00 08/11/16 20:39 Acetaminophen (Tylenol) 650 mg Q6H PRN PO PAIN SCALE 1 TO 2 08/11/16 10:30 08/12/16 00:03 Lactobacillus Acidophilus (Lactinex) 1 tab Q12HR PO 08/11/16 21:00 08/11/16 20:38 Levothyroxine Sodium 200 mcg 200 mcg DAILY@06 PO 08/12/16 06:00 08/12/16 06:08 Cefepime HCl/ Sodium Chloride (Maxipime Inj/NS Inj) 100 ml @ 200 mls/hr Q8H IV 08/11/16 18:00 08/12/16 03:11 Methylprednisolone Sodium Succinate (SoluMEDROL INJ) 40 mg Q12HR IV PUSH 08/11/16 21:00 08/11/16 20:37 Hydromorphone HCl (Dilaudid Pf Inj) 4 mg Q6H IV PUSH 08/11/16 15:00 08/12/16 03:11 Oxycodone HCl (OxyCONTIN CR) 60 mg Q12HR PRN PO BREAKTHROUGH PAIN 08/11/16 16:15 08/11/16 21:54 Enoxaparin Sodium (Lovenox Inj) 40 mg Q24H SQ 08/11/16 20:00 08/11/16 20:37 Objective Remarks GENERAL: Middle aged female, sitting up in bed in [facility]. SKIN: Warm and dry. HEAD: Normocephalic. EYES: No injection or drainage. NECK: Supple, trachea midline. CARDIOVASCULAR: Regular rate and rhythm RESPIRATORY: scattered rhonchi in all lung viveros. GASTROINTESTINAL: Abdomen soft, non-tender, nondistended. EXTREMITIES: No cyanosis, or edema. MUSCULOSKELETAL: Adequate muscle tone. NEUROLOGICAL: No obvious focal deficit. Awake, alert, and oriented x3. Assessment/Plan Problem List: (1) Metastatic breast cancer Status: Acute Plan: --last CT/PET scan from July 08, 2016, shows no progression. no distant site of metastatic disease. --has chronic changes in the right upper lung which is the main reason for her symptoms. --on maintenance Halaven--last treatment Tuesday 08/08 (2) Community acquired bacterial pneumonia Status: Acute Plan: --possible post-obstructive pneumonia --on solu-medrol 40mg IV q 12 --RUL chronic consolidation --CT chest shows chronic scarring and pleural thickening on the right, no acute changes. --pulmonology following (dr. haji) --follows with Dr. Lala outpatient) --BC pending --flu negative Assessment 61y/o female with right upper lung pneumonia and respiratory insufficiency. history of metastatic/metaplastic breast cancer-->had definitive treatment in the right upper lung area. has been on maintenance Halaven ever since. h/o Chemotherapy-induced anemia. Asthma. Right upper lung radiation pneumonitis. Chronic pain. Chronic anxiety. Diverticulosis. Hypothyroidism. Migraine headaches. Metastatic breast cancer. DCIS. Plan 1. continue steroids and antibiotics 2. appreciate pulmonology assistance. 3. supportive care 4. CT chest reviewed with patient Attending Statement The exam, history, and the medical decision-making described in the above note were completed with the assistance of the mid-level provider. I reviewed and agree with the findings presented. I attest that I had a [id number] encounter with the patient on the same day, and personally performed and documented my assessment and findings in the medical record. Extremely flushed at time of visit. Feels flushed, feels unwell, worried about going home unwell. Requiring frequent respiratory treatments. CT chest shows chronic changes in RUL. CT was non contrast, does not show SVC, monitor for facial swelling, so far no periorbital edema or plethora. Trial antihistamine. Check 5HIAA, serotonin and chromogranin A. Spoke with pt's nurse to monitor resolution. Susana Lockett Aug 12, 2016 09:14 Yasemin Grimaldo MD Aug 12, 2016 20:24
[2016-08-12] MEDS: DOCUSATE SODIUM 50 MG/SENNA 8.6 MG TAB PO SCH (09:29)
[2016-08-12] MEDS: LACTOBACILLUS ACIDOPHILUS TAB PO SCH ×2 (09:29→21:22)
[2016-08-12] MEDS: SODIUM CHLORIDE 0.9% FLUSH 10 ML FLUSH IV FLUSH SCH ×2 (09:32→21:24)
[2016-08-12] MEDS: methylPREDNISolone SOD SUCC 40 MG/1 ML VIAL IV PUSH SCH ×2 (09:32→21:23)
[2016-08-12] MEDS: guaiFENesin E.R. 600 MG TAB PO SCH ×2 (09:41→21:22)
[2016-08-12] MEDS: oxyCODONE HCL 20 MG CONTROLLED RELEASE TAB PO PRN (10:54)
[2016-08-12] MEDS: INSULIN ASPART SUPPLEMENTAL SCALE SQ SCH ×3 (11:37→21:28)
--- NOTE | 2016-08-12 14:15 | EKG ---
Date Performed: 08/11/2016 Time Performed: 08:49:44 PTAGE: 61 years EKG: SINUS TACHYCARDIA Right atrial abnormality Nondiagnostic Q waves inferior leads Compared to prior tracing no significant change PREVIOUS TRACING : 02/05/2015 14.14 DOCTOR: Mike Smith Interpretating Date/Time 08/12/2016 14:13:10
--- NOTE | 2016-08-12 20:09 | HHI.PR ---
Subjective Remarks 61 YOWF with Metastatic breast ca, S/P RUL obectomy CT chest no ac changes Feels anxious Has ch pain No Fever Cough, no sputum. Objective Vital Signs Vital Signs Date Time Temp Pulse Resp B/P Pulse Ox O2 Delivery O2 Flow Rate FiO2 08/12/16 19:52 96 21 08/12/16 16:05 97.3 111 19 143/83 94 08/12/16 16:00 Room Air 08/12/16 12:05 97.7 108 19 126/74 94 08/12/16 12:00 Room Air 08/12/16 08:05 98.2 80 20 122/73 95 08/12/16 08:02 109 08/12/16 08:00 Room Air 08/12/16 05:20 97.4 104 18 129/79 94 08/11/16 23:55 98.0 111 18 123/83 92 08/11/16 21:18 98.5 116 18 164/98 92 148/86 I/O 08/11/16 08/11/16 08/11/16 08/12/16 08/12/16 08/12/16 07:00 15:00 23:00 07:00 15:00 23:00 Intake Total 720 ml 600 ml 480 ml 590 ml Output Total 800 ml 1800 ml Balance 720 ml 600 ml -320 ml -1210 ml Intake Oral 720 ml 600 ml 480 ml 480 ml IV Total 0 ml 110 ml Output Urine Total 800 ml 1800 ml # Voids 4 4 # Bowel Movements 0 0 0 0 Result Diagram: 08/12/16 0615 08/12/1615 Objective Remarks GENERAL: MBMN WF, mild sob SKIN: Warm and dry. HEAD: Normocephalic. EYES: No scleral icterus. No injection or drainage. NECK: Supple, trachea midline. No JVD or lymphadenopathy. CARDIOVASCULAR: Regular rate and rhythm without murmurs, gallops, or rubs. RESPIRATORY: Breath sounds equal bilaterally. No accessory muscle use. GASTROINTESTINAL: Abdomen soft, non-tender, nondistended. MUSCULOSKELETAL: No cyanosis, or edema. BACK: Nontender without obvious deformity. No CVA tenderness. A/P Assessment and Plan Lung infilt with volume loss right, chronic Metastatic breast ca S/P RULobectomy Anxiety Ch. PAin PLAN: Cont Abx Aerosol nebs IV Solumedrol Supplement 02 pain controll Jose Lee MD Aug 12, 2016 20:09
[2016-08-12] MEDS ORDERED: LORATADINE 10 MG TAB PO ONE (21:00)
[2016-08-12] MEDS: FAMOTIDINE 20 MG TAB PO SCH (21:22)
[2016-08-12] MEDS: ENOXAPARIN SODIUM 40 MG/0.4 ML SYRINGE SQ SCH (21:24)
[2016-08-12] MEDS: POLYETHYLENE GLYCOL 17 GM PKG PO SCH (21:46)
[2016-08-12] MEDS: ZOLPIDEM TARTRATE 10 MG TAB PO PRN (23:16)
[2016-08-13] VITALS (9 sets, daily range): BP systolic 120–148; BP diastolic 79–94; PULSE 97–127; RESP 18–20; TEMP 97.2–98.4; O2SAT 92–98
[2016-08-13] MEDS: HYDROmorphone HCL PF 4 MG/ML VIAL IV PUSH SCH ×7 (01:00→21:03)
[2016-08-13] MEDS: CEFEPIME INJ 2,000 MG in SODIUM CHLORIDE 0.9% INJ 100 ML IV SCH ×3 (01:09→16:49)
[2016-08-13] MEDS: RESP: ALBUTEROL 2.5 MG/IPRATROPIUM 0.5 MG NEB (PRN) NEB (02:04)
[2016-08-13] MEDS: LEVOTHYROXINE SODIUM 200 MCG TAB PO SCH (05:25)
[2016-08-13] MEDS: oxyCODONE HCL 20 MG CONTROLLED RELEASE TAB PO PRN ×2 (06:03→17:40)
[2016-08-13] MEDS: INSULIN ASPART SUPPLEMENTAL SCALE SQ SCH ×4 (06:07→20:59)
[2016-08-13] MEDS: RESP: ALBUTEROL 2.5 MG/IPRATROPIUM 0.5 MG NEB (SCH) NEB ×3 (08:36→20:47)
[2016-08-13] MEDS: RESP: BUDESONIDE 0.5 MG/2 ML NEB NEB SCH ×2 (08:36→20:47)
[2016-08-13] MEDS: LACTOBACILLUS ACIDOPHILUS TAB PO SCH ×2 (08:51→21:03)
[2016-08-13] MEDS: guaiFENesin E.R. 600 MG TAB PO SCH ×2 (08:51→21:03)
[2016-08-13] MEDS: FAMOTIDINE 20 MG TAB PO SCH ×2 (08:51→21:03)
[2016-08-13] MEDS: DOCUSATE SODIUM 50 MG/SENNA 8.6 MG TAB PO SCH (08:51)
[2016-08-13] MEDS: methylPREDNISolone SOD SUCC 40 MG/1 ML VIAL IV PUSH SCH ×2 (08:52→21:03)
[2016-08-13] MEDS: SODIUM CHLORIDE 0.9% FLUSH 10 ML FLUSH IV FLUSH SCH ×2 (08:52→21:03)
--- NOTE | 2016-08-13 08:52 | HHI.PR ---
Subjective Remarks Follow-up for pneumonia Patient stated that she continues to be pain she does not like she is getting better. She continues to have cough and shortness of breathing. Patient remains on room air. She also remains afebrile. Patient also stated last night she had flushing. She thinks is because of the new medication. The only new medication that she was put on was Mucinex. Objective Vitals Vital Signs Date Time Temp Pulse Resp B/P Pulse Ox O2 Delivery O2 Flow Rate FiO2 08/13/16 08:36 96 08/13/16 05:18 97.4 97 18 133/88 94 08/13/16 00:40 97.2 102 18 140/89 92 08/12/16 20:00 Room Air 08/12/16 20:00 116 08/12/16 19:52 96 21 08/12/16 19:30 97.8 116 18 137/90 93 08/12/16 16:05 97.3 111 19 143/83 94 08/12/16 16:00 Room Air 08/12/16 12:05 97.7 108 19 126/74 94 08/12/16 12:00 Room Air I/O 08/12/16 08/12/16 08/12/16 08/13/16 08/13/16 08/13/16 07:00 15:00 23:00 07:00 15:00 23:00 Intake Total 480 ml 590 ml 720 ml 240 ml Output Total 800 ml 1800 ml 1000 ml 1600 ml Balance -320 ml -1210 ml -280 ml -1360 ml Intake Oral 480 ml 480 ml 720 ml 240 ml IV Total 110 ml Output Urine Total 800 ml 1800 ml 1000 ml 1600 ml # Bowel Movements 0 0 0 0 Result Diagram: 08/12/1615 08/12/1615 Objective Remarks GENERAL: in NAD sitting comfortably in bed on her computer. CARDIOVASCULAR: Regular rate and rhythm without murmurs, gallops, or rubs. RESPIRATORY: Breath sounds equal bilaterally. transmitted upper respiratory sounds. No accessory muscle use. GASTROINTESTINAL: Abdomen soft, non-tender, nondistended. MUSCULOSKELETAL: No cyanosis, or edema. BACK: Nontender without obvious deformity. No CVA tenderness. Medications and IVs Current Medications Vancomycin HCl 1 mg/Sodium Chloride 250 ml @ 250 mls/hr ONCE STAT IV Last administered on 08/11/16t 08:44; Start 08/11/16 at 08:21; Stop 08/11/16 at 09:20 ; Status DC Cefepime HCl/ Sodium Chloride (Maxipime Inj/NS Inj) 100 ml @ 200 mls/hr ONCE STAT IV Last administered on 08/11/16 09:47; Start 08/11/16 at 08:21; Stop 02/15 at 08:50; Status DC Methylprednisolone Sodium Succinate (SoluMEDROL INJ) 125 mg ONCE ONCE IVP Last administered on 08/11/16 08:44; Start 08/11/16 at 08:30; Stop 08/11/16 at 08:31; Status DC Albuterol/ Ipratropium 1 ampule 1 ampule Q15M INH Last administered on 08:39; Start 08/11/16 at 08:30; Stop 08/11/16 at 08:46; Status DC Sodium Chloride 1,000 ml @ 999 mls/hr BOLUS ONCE IV Last administered on 08/11 08:43; Start 08/11/16 at 08:30; Stop 08/11/16 at 09:30; Status DC Sodium Chloride (NS 1000 ml Inj) 1,000 ml @ 999 mls/hr BOLUS ONCE IV Last administered on 08/11/16 09:46; Start 08/11/16 at 08:30; Stop 08/11/16 at 09:30 ; Status DC Hydromorphone HCl (Dilaudid Pf Inj) 4 mg ONCE ONCE IV PUSH Last administered on 08/11/16 09:22; Start 08/11/16 at 09:00; Stop 08/11/16 at 09:02; Status DC Sodium Chloride (NS Flush) 2 ml UNSCH PRN IV FLUSH FLUSH AFTER USING IV ACCESS ; Start 08/11/16 at 10:30 Sodium Chloride (NS Flush) 2 ml BID IV FLUSH Last administered on 08/12/16 21: 24; Start 08/11/16 at 21:00 Acetaminophen (Tylenol) 650 mg Q4H PRN PO TEMP > 100.4; Start 08/11/16 at 10:30 Ondansetron HCl (Zofran Inj) 4 mg Q6H PRN IVP NAUSEA OR VOMITING; Start at 10:30 Acetaminophen (Tylenol) 650 mg Q6H PRN PO PAIN SCALE 1 TO 2 Last administered on 08/12/16 00:03; Start 08/11/16 at 10:30 Naloxone HCl (Narcan Inj) 0.4 mg UNSCH PRN IV SEE LABEL COMMENTS; Start at 10:30 Magnesium Hydroxide (Milk Of Magnesia Liq) 30 ml Q12H PRN PO MILD - MODERATE CONSTIPATION; Start 08/11/16 at 10:30 Albuterol/ Ipratropium (Duoneb Neb) 1 ampule Q2HR NEB PRN NEB SOB/WHEEZING Last administered on 08/13/16 02:04; Start 08/11/16 at 10:30 Enalaprilat (Vasotec Inj) 1.25 mg Q6H PRN IV PUSH SBP>160, DBP>90; Start 08/11 at 10:30 Pantoprazole Sodium (Protonix) 40 mg DAILY PO Last administered on 08/12/16 09 :29; Start 08/12/16 at 09:00; Stop 08/12/16 at 20:22; Status DC Lactobacillus Acidophilus (Lactinex) 1 tab Q12HR PO Last administered on 21:22; Start 08/11/16 at 21:00 Budesonide (Pulmicort Respule Neb) 0.5 mg Q12HR NEB NEB Last administered on 08:36; Start 08/11/16 at 20:00 Levothyroxine Sodium 200 mcg 200 mcg DAILY@06 PO Last administered on 05:25; Start 08/12/16 at 06:00 Cefepime HCl/ Sodium Chloride (Maxipime Inj/NS Inj) 100 ml @ 200 mls/hr Q8H IV Last administered on 08/13/16 01:09; Start 08/11/16 at 18:00 Methylprednisolone Sodium Succinate (SoluMEDROL INJ) 40 mg Q12HR IV PUSH Last administered on 08/12/16 21:23; Start 08/11/16 at 21:00 Hydromorphone HCl (Dilaudid Pf Inj) 4 mg Q6H IV PUSH Last administered on 14:42; Start 08/11/16 at 15:00; Stop 08/12/16 at 15:05; Status DC Albuterol/ Ipratropium (Duoneb Neb) 1 ampule Q6HR WHILE AWAKE NEB NEB Last administered on 08/13/16 08:36; Start 08/11/16 at 20:00 Oxycodone HCl (OxyCONTIN CR) 60 mg Q12HR PRN PO BREAKTHROUGH PAIN Last administered on 08/13/16 06:03; Start 08/11/16 at 16:15 Senna/Docusate Sodium 2 tab 2 tab DAILY PO Last administered on 08/12/16 09:29 ; Start 08/12/16 at 09:00 Sodium Chloride (NS 250 ml Inj) 250 ml @ 250 mls/hr BOLUS ONCE IV ; Start 02/15 at 19:00; Stop 08/11/16 at 19:59; Status DC Polyethylene Glycol (Miralax) 17 gm DAILY PO ; Start 08/12/16 at 09:00; Stop at 15:05; Status DC Enoxaparin Sodium (Lovenox Inj) 40 mg Q24H SQ Last administered on 08/12/16 21 :24; Start 08/11/16 at 20:00 Iohexol (Omnipaque 350 Inj) 73 ml STK-MED ONCE IV Last administered on 22:19; Start 08/11/16 at 22:19; Stop 08/11/16 at 22:20; Status DC Dextrose (D50w (Vial) Inj) 50 ml UNSCH PRN IV HYPOGLYCEMIA-SEE COMMENTS; Start 08/12/16 at 09:00 Glucagon (Glucagon Inj) 1 mg UNSCH PRN OTHER HYPOGLYCEMIA-SEE COMMENTS; Start 08/12/16 at 09:00 Insulin Aspart (NovoLOG SUPPLEMENTAL SCALE) 1 ACHS SLIDING SCALE SQ Last administered on 08/13/16 06:07; Start 08/12/16 at 11:00 Guaifenesin (Mucinex Er) 600 mg BID PO Last administered on 08/12/16 21:22; Start 08/12/16 at 09:00 Zolpidem Tartrate (Ambien) 10 mg HS PRN PO INSOMNIA Last administered on 23:16; Start 08/12/16 at 09:00 Hydromorphone HCl (Dilaudid Pf Inj) 4 mg Q4H IV PUSH Last administered on 05:25; Start 08/12/16 at 17:00 Polyethylene Glycol (Miralax) 17 gm DAILY PO Last administered on 08/12/16 21: 46; Start 08/12/16 at 22:00 Famotidine (Pepcid) 20 mg BID PO Last administered on 08/12/16 21:22; Start at 21:00 Loratadine (Claritin) 10 mg ONCE ONCE PO Last administered on 08/12/16 21:22 ; Start 08/12/16 at 21:00; Stop 08/12/16 at 21:01; Status DC A/P Problem List: (1) Community acquired bacterial pneumonia ICD Code: J15.9 Status: Acute (2) Failure of outpatient treatment ICD Code: Z78.9 Status: Acute (3) Sepsis ICD Code: A41.9 Status: Acute (4) Metastatic breast cancer ICD Code: C50.919 Status: Acute Assessment and Plan 61-year-old female with Sepsis: Meets sepsis criteria; source (PNA) Heart rate over 90, RR > 20 or PaCO2 < 32, lactic acid 2.1; status post cefepime IV 1 in ED, continue with antibiotics pending culture report Community-acquired pneumonia Outpatient therapy failure for upper respiratory infection Chest x-ray with consolidative changes in upper lung CT chest noted and reviewed by me with finding of No acute abnormality demonstrated. Chronic scarring, pleural thickening and volume loss again noted on the left. Cefepime 2 mg IV every 8H Pneumococcal and Legionella urinary antigens pending. Flu A and B antigens negative Maintain oxygen saturation above 90% Should have not given sputum sample yet. Pending sputum sample. Clinically patient is doing well. Appreciate input from pulmonary medicine History of radiation induced pneumonitis COPD exacerbation On Solu-Medrol 40 mg every 12 hour, cefepime,Symbicort, Mucinex, DuoNeb scheduled and when necessary. Lung exam has much improved. Could not appreciate any wheezing. May want to decrease Solu-Medrol and consider oral medication. Will let patient care assistant decide when to switch to by mouth steroids. CT chest noted and review Appreciate input from pulmonary medicine Steroid-induced hyperglycemia: Start prophylactic insulin sliding scale low Chronic pain syndrome Dilaudid schedule IV and OxyContin for breakthrough pain Scheduled softener Hypothyroidism Continue Synthroid Insomnia: Ambien when necessary History of metastasis breast cancer Appreciate input from patient's oncologist DVT prophylaxis: Lovenox Discharge Planning Patient continues to require continual hospitalization. She is on IV antibiotics and IV Solu-Medrol pending results. Problem Qualifiers (1) Sepsis: Qualified Code: A41.9 - Sepsis, due to unspecified organism Laurie Raymond MD Aug 13, 2016 08:51
[2016-08-13] MEDS: POLYETHYLENE GLYCOL 17 GM PKG PO SCH ×2 (09:00→22:48)
[2016-08-13] MEDS ORDERED: LORATADINE 10 MG TAB PO ONE (13:15)
--- NOTE | 2016-08-13 13:15 | PD.ONC.PN ---
Subjective Subjective Remarks Afebrile overnight. Patient resting in bed in nad. Feels that she is breathing better today. States flushing is also better. Objective Data Date Time Temp Pulse Resp B/P Pulse Ox O2 Delivery O2 Flow Rate FiO2 08/13/16 12:04 97.8 103 19 132/86 94 08/13/16 08:36 96 08/13/16 08:30 Room Air 08/13/16 08:06 98.0 104 20 120/94 94 08/13/16 05:18 97.4 97 18 133/88 94 08/13/16 00:40 97.2 102 18 140/89 92 08/12/16 20:00 Room Air 08/12/16 20:00 116 08/12/16 19:52 96 21 08/12/16 19:30 97.8 116 18 137/90 93 08/12/16 16:05 97.3 111 19 143/83 94 08/12/16 16:00 Room Air 08/13/16 08/13/16 08/13/16 07:00 15:00 23:00 Intake Total 240 ml Output Total 1600 ml Balance -1360 ml Result Diagram: 08/12/16 0615 08/12/16 0615 Culture Results Microbiology Date/Time Procedure Status Source Growth 08/11/16 08:25 Aerobic Blood Culture - Preliminary Resulted Blood Peripheral NO GROWTH IN 2 DAYS 08/11/16 08:25 Anaerobic Blood Culture - Preliminary Resulted Blood Peripheral NO GROWTH IN 2 DAYS 08/11/16 08:30 Aerobic Blood Culture - Preliminary Resulted Blood Peripheral NO GROWTH IN 2 DAYS 08/11/16 08:30 Anaerobic Blood Culture - Preliminary Resulted Blood Peripheral NO GROWTH IN 2 DAYS 08/11/16 10:40 Urine Culture - Final Complete Urine Catheterized Urine NO GROWTH IN 48 HOURS. 08/11/16 10:40 Legionella Antigen - Final Complete Urine Clean Catch PRESUMPTIVE NEGATIVE FOR LEGIONELLA P... 08/11/16 10:40 Streptococcus pneumoniae Antigen (M - Final Complete Urine Clean Catch PRESUMPTIVE NEGATIVE FOR STREPTOCOCCU... 08/12/16 00:30 Influenza Types A,B Antigen (ALEXA) - Final Complete Nasal Washing NEGATIVE FOR FLU A AND B ANTIGEN.... Administered Medications Medications (Trade) Dose Ordered Sig/Diana Route PRN Reason Start Time Stop Time Status Last Admin Dose Admin Sodium Chloride (NS Flush) 2 ml BID IV FLUSH 08/11/16 21:00 08/13/16 08:52 Acetaminophen (Tylenol) 650 mg Q6H PRN PO PAIN SCALE 1 TO 2 08/11/16 10:30 08/12/16 00:03 Lactobacillus Acidophilus (Lactinex) 1 tab Q12HR PO 08/11/16 21:00 08/13/16 08:51 Levothyroxine Sodium 200 mcg 200 mcg DAILY@06 PO 08/12/16 06:00 08/13/16 05:25 Cefepime HCl/ Sodium Chloride (Maxipime Inj/NS Inj) 100 ml @ 200 mls/hr Q8H IV 08/11/16 18:00 08/13/16 08:53 Methylprednisolone Sodium Succinate (SoluMEDROL INJ) 40 mg Q12HR IV PUSH 08/11/16 21:00 08/13/16 08:52 Oxycodone HCl (OxyCONTIN CR) 60 mg Q12HR PRN PO BREAKTHROUGH PAIN 08/11/16 16:15 08/13/16 06:03 Senna/Docusate Sodium (Tiffanie-Colace) 2 tab DAILY PO 08/12/16 09:00 08/13/16 08:51 Enoxaparin Sodium (Lovenox Inj) 40 mg Q24H SQ 08/11/16 20:00 08/12/16 21:24 Guaifenesin (Mucinex Er) 600 mg BID PO 08/12/16 09:00 08/13/16 08:51 Zolpidem Tartrate (Ambien) 10 mg HS PRN PO INSOMNIA 08/12/16 09:00 08/12/16 23:16 Hydromorphone HCl (Dilaudid Pf Inj) 4 mg Q4H IV PUSH 08/12/16 17:00 08/13/16 09:00 Polyethylene Glycol (Miralax) 17 gm DAILY PO 08/12/16 22:00 08/12/16 21:46 Famotidine (Pepcid) 20 mg BID PO 08/12/16 21:00 08/13/16 08:51 Objective Remarks GENERAL: Middle aged female, upright in bed, watching moving on laptop. SKIN: Warm and dry. HEAD: Normocephalic. EYES: No injection or drainage. NECK: Supple, trachea midline. CARDIOVASCULAR: Regular rate and rhythm RESPIRATORY: diminished at bases. occasional rhonchi. lungs sound improved from yesterday GASTROINTESTINAL: Abdomen soft, non-tender, nondistended. EXTREMITIES: No cyanosis, or edema. MUSCULOSKELETAL: Adequate muscle tone. NEUROLOGICAL: awake and alert, normal speech. moving extremities. Assessment/Plan Problem List: (1) Metastatic breast cancer Status: Acute Plan: --last CT/PET scan from July 08, 2016, shows no progression. no distant site of metastatic disease. --has chronic changes in the right upper lung which is the main reason for her symptoms. --on maintenance Hal[place]--last treatment Tuesday 08/08 (2) Community acquired bacterial pneumonia Status: Acute Plan: --possible post-obstructive pneumonia --on solu-medrol 40mg IV q 12 --RUL chronic consolidation --CT chest shows chronic scarring and pleural thickening on the right, no acute changes. --pulmonology following (dr. haji) --follows with Dr. Lala outpatient) --BC pending --flu negative Assessment 61y/o female with right upper lung pneumonia and respiratory insufficiency. history of metastatic/metaplastic breast cancer-->had definitive treatment in the right upper lung area. has been on maintenance [place] ever since. h/o Chemotherapy-induced anemia. Asthma. Right upper lung radiation pneumonitis. Chronic pain. Chronic anxiety. Diverticulosis. Hypothyroidism. Migraine headaches. Metastatic breast cancer. DCIS. Plan 1. give second dose claritin today, flushing improved per patient 2. continue antibiotics/steroids per pulmonology Attending Statement The exam, history, and the medical decision-making described in the above note were completed with the assistance of the mid-level provider. I reviewed and agree with the findings presented. I attest that I had a [id number] encounter with the patient on the same day, and personally performed and documented my assessment and findings in the medical record. Pt seen and examined a few hours post Mucinex, noted flushing and redness worse. Erythema of face now to neck and arms and back. Also suspect cephalosporin but pt was tolerating Cefepime for >24 hours before developing rash. Noted BM Feeling better, able to expectorate. Pain well controlled. Susana Lockett Aug 13, 2016 13:15 Yasemin Grimaldo MD Aug 13, 2016 21:41
[2016-08-13] MEDS ORDERED: PILL SPLITTER OTHER PRN (13:30)
--- NOTE | 2016-08-13 18:50 | HHI.PR ---
Subjective Remarks 61 YOWF with Metastatic breast ca, S/P RUL obectomy CT chest no ac changes Feels anxious Has ch pain No Fever Cough, no sputum. Had flushing of face, improving Objective Vital Signs Vital Signs Date Time Temp Pulse Resp B/P Pulse Ox O2 Delivery O2 Flow Rate FiO2 08/13/16 16:11 98.4 110 19 130/79 96 08/13/16 12:04 97.8 103 19 132/86 94 08/13/16 08:36 96 08/13/16 08:30 Room Air 08/13/16 08:06 98.0 104 20 120/94 94 08/13/16 08:00 101 08/13/16 05:18 97.4 97 18 133/88 94 08/13/16 00:40 97.2 102 18 140/89 92 08/12/16 20:00 Room Air 08/12/16 20:00 116 08/12/16 19:52 96 21 08/12/16 19:30 97.8 116 18 137/90 93 I/O 08/12/16 08/12/16 08/12/16 08/13/16 08/13/16 08/13/16 07:00 15:00 23:00 07:00 15:00 23:00 Intake Total 480 ml 590 ml 720 ml 240 ml 830 ml Output Total 800 ml 1800 ml 1000 ml 1600 ml 900 ml Balance -320 ml -1210 ml -280 ml -1360 ml -70 ml Intake Oral 480 ml 480 ml 720 ml 240 ml 720 ml IV Total 110 ml 110 ml Output Urine Total 800 ml 1800 ml 1000 ml 1600 ml 900 ml # Bowel Movements 0 0 0 0 1 Result Diagram: 08/12/1615 08/12/1615 Objective Remarks GENERAL: MBMN WF, mild sob SKIN: Warm and dry. HEAD: Normocephalic. EYES: No scleral icterus. No injection or drainage. NECK: Supple, trachea midline. No JVD or lymphadenopathy. CARDIOVASCULAR: Regular rate and rhythm without murmurs, gallops, or rubs. RESPIRATORY: Breath sounds equal bilaterally. No accessory muscle use. GASTROINTESTINAL: Abdomen soft, non-tender, nondistended. MUSCULOSKELETAL: No cyanosis, or edema. BACK: Nontender without obvious deformity. No CVA tenderness. A/P Assessment and Plan Lung infilt with volume loss right, chronic Metastatic breast ca S/P RULobectomy Anxiety Ch. PAin PLAN: Cont Abx Aerosol nebs IV Solumedrol Supplement 02 pain controll Claritin 10 mg daily Jose Lee MD Aug 13, 2016 18:50
--- NOTE | 2016-08-13 21:01 | RADRPT ---
EXAM DATE/TIME: 08/13/2016 20:27 [facility] COMPARISON: CT THORAX W CONTRAST, August 11, 2016, 22:12. CHEST SINGLE AP, August 11, 2016, 8:35. INDICATIONS : Chest pain, cough, and congestion. MEDICAL HISTORY : Carcinoma, breast. Carcinoma, lung. SURGICAL HISTORY : Mastectomy, left. Right upper lung lobectomy. ENCOUNTER: Initial ACUITY: 2 days PAIN SCORE: 7/10 LOCATION: Left chest FINDINGS: Dense consolidation/scarring of the right upper lobe with right-sided volume loss again noted, unchan ged. Left lung remains clear. There is a right subclavian central venous catheter again noted, tip at atriocaval junction. Heart size stable, normal. CONCLUSION: Unchanged. Chronic consolidation/scarring and volume loss on the right. Corey Loomis MD on August 13, 2016 at 20:58 Board Certified Radiologist. This report was verified electronically.
[2016-08-13] MEDS: ENOXAPARIN SODIUM 40 MG/0.4 ML SYRINGE SQ SCH (21:04)
[2016-08-14] VITALS (12 sets, daily range): BP systolic 109–141; BP diastolic 67–93; PULSE 105–121; RESP 18–20; TEMP 97.1–98.7; O2SAT 91–94
[2016-08-14] MEDS: RESP: ALBUTEROL 2.5 MG/IPRATROPIUM 0.5 MG NEB (PRN) NEB (00:06)
[2016-08-14] MEDS: ZOLPIDEM TARTRATE 10 MG TAB PO PRN (00:16)
[2016-08-14] MEDS: HYDROmorphone HCL PF 4 MG/ML VIAL IV PUSH SCH ×6 (00:18→20:36)
[2016-08-14] MEDS: CEFEPIME INJ 2,000 MG in SODIUM CHLORIDE 0.9% INJ 100 ML IV SCH ×3 (01:24→17:13)
[2016-08-14] MEDS: LEVOTHYROXINE SODIUM 200 MCG TAB PO SCH (05:21)
[2016-08-14 05:31] LABS: HEMATOCRIT 35.6 % (35.0-46.0); MEAN CELL VOLUME 88.1 FL (80.0-100.0); MEAN CORPUSCULAR HEMOGLOBIN 28.5 PG (27.0-34.0); MEAN CORPUSCULAR HGB CONC 32.4 % (32.0-36.0); PLATELET COUNT 235 TH/MM3 (150-450); RED BLOOD COUNT 4.05 MIL/MM3 (4.00-5.30); RED CELL DISTRIBUTION WIDTH 16.2 % (11.6-17.2); REVIEW FLAG FINAL; WHITE BLOOD COUNT 12.4 TH/MM3 (4.0-11.0)
[2016-08-14 06:05] LABS: BICARBONATE 31.7 MEQ/L (21.0-32.0); POTASSIUM 4.2 MEQ/L (3.5-5.1)
[2016-08-14] MEDS: oxyCODONE HCL 20 MG CONTROLLED RELEASE TAB PO PRN ×2 (06:06→18:24)
[2016-08-14] MEDS: INSULIN ASPART SUPPLEMENTAL SCALE SQ SCH ×4 (06:08→20:33)
[2016-08-14] MEDS: RESP: BUDESONIDE 0.5 MG/2 ML NEB NEB SCH ×2 (08:12→20:47)
[2016-08-14] MEDS: RESP: ALBUTEROL 2.5 MG/IPRATROPIUM 0.5 MG NEB (SCH) NEB ×3 (08:12→20:47)
[2016-08-14] MEDS: SODIUM CHLORIDE 0.9% FLUSH 10 ML FLUSH IV FLUSH SCH ×2 (09:31→20:30)
[2016-08-14] MEDS: methylPREDNISolone SOD SUCC 40 MG/1 ML VIAL IV PUSH SCH ×2 (09:31→20:30)
[2016-08-14] MEDS: FAMOTIDINE 20 MG TAB PO SCH ×2 (09:32→20:29)
[2016-08-14] MEDS: DOCUSATE SODIUM 50 MG/SENNA 8.6 MG TAB PO SCH (09:32)
--- NOTE | 2016-08-14 09:37 | HHI.HP ---
HPI Service [facility] Primary Care Physician Hussein Hansen MD Admission Diagnosis sepsis, respiratory symptoms, history of breast cancer Diagnoses: (1) Community acquired bacterial pneumonia (2) Failure of outpatient treatment (3) Sepsis (4) Metastatic breast cancer Travel History International Travel<30 Days: No Contact w/Intl Traveler <30 Da: No Traveled to Known Affected Are: No History of Present Illness 61-year-old female with a history of metastasis breast cancer, radiation induced pneumonitis presented to the ED for evaluation of worsening cough production described as greenish and brown, subjective fever along with shortness of breath. Patient was diagnosed with upper respiratory infection on 08/07/16 and started on Cipro 500 mg by mouth twice a day however continue to have worsening URI symptoms despite treatment with Tylenol for the fever of 100.1 yesterday 08/10/16. Patient also reported worsening of shortness of breath despite nebulizer treatment. On admissions, vitals temperature 98.7, HR 126, RR 20, BP 117/88 with oxygen saturation room air 94%. Abnormal lab include lactic acid 2.1. Patient denies any hematuria, GI bleed. Past Family Social History Past Medical History Alopecia Anemia Asthma Chronic pain on opioids Diverticulosis Hyperglycemia Hypothyroidism Migraines Breast cancer Past Surgical History Cholecystectomy Hysterectomy Knee surgery Tonsillectomy Bilateral tubal ligation Right upper lobectomy in 2010 Mastectomy 2009 Allergies: Coded Allergies: Flagyl (Verified Allergy, Severe, Nausea/Vomiting, 08/11/16) Eribulin (Verified Adverse Reaction, Mild, Itching, 08/11/16) Pt denies allergy Uncoded Allergies: Transpore Tape (Allergy, Mild, Rash, 05/14/16) Family History Both parents and mom from complication of coronary heart disease Social History Alcohol Use: Yes (RARELY PER PT) Tobacco Use: No Substance Use: No (PT DENIES) Physical Exam Vital Signs Vital Signs Date Time Temp Pulse Resp B/P Pulse Ox O2 Delivery O2 Flow Rate FiO2 08/14/16 08:14 93 21 08/14/16 07:31 18 08/14/16 05:10 97.7 111 18 136/92 92 08/14/16 04:11 121 08/14/16 01:22 97.4 110 18 115/67 91 08/14/16 00:06 93 21 08/13/16 21:00 Room Air 08/13/16 20:47 98 21 08/13/16 20:00 98.0 127 18 148/84 93 08/13/16 16:11 98.4 110 19 130/79 96 08/13/16 16:00 Room Air 08/13/16 12:04 97.8 103 19 132/86 94 08/13/16 12:00 Room Air Physical Exam GENERAL: This is a well-nourished, well-developed patient, in no apparent distress. SKIN: No rashes, ecchymoses or lesions. Cool and dry. HEAD: Atraumatic. Normocephalic. No temporal or scalp tenderness. EYES: Pupils equal round and reactive. Extraocular motions intact. No scleral icterus. No injection or drainage. ENT: Nose without bleeding, purulent drainage or septal hematoma. Throat without erythema, tonsillar hypertrophy or exudate. Uvula midline. Airway patent. NECK: Trachea midline. No JVD or lymphadenopathy. Supple, nontender, no meningeal signs. CARDIOVASCULAR: Regular rate and rhythm without murmurs, gallops, or rubs. RESPIRATORY: Clear to auscultation. Breath sounds equal bilaterally. No wheezes , rales, or rhonchi. GASTROINTESTINAL: Abdomen soft, non-tender, nondistended. No hepato-splenomegaly , or palpable masses. No guarding. MUSCULOSKELETAL: Extremities without clubbing, cyanosis, or edema. No joint tenderness, effusion, or edema noted. No calf tenderness. Negative Homans sign bilaterally. NEUROLOGICAL: Awake and alert. Cranial nerves II through XII intact. Motor and sensory grossly within normal limits. Five out of 5 muscle strength in all muscle groups. Normal speech. Laboratory Laboratory Tests Test 08/13/16 08/14/16 21:15 05:15 Magnesium Level 2.1 White Blood Count 12.4 Red Blood Count 4.05 Hemoglobin 11.5 Hematocrit 35.6 Mean Corpuscular Volume 88.1 Mean Corpuscular Hemoglobin 28.5 Mean Corpuscular Hemoglobin 32.4 Concent Red Cell Distribution Width 16.2 Platelet Count 235 Mean Platelet Volume 8.1 Sodium Level 135 Potassium Level 4.2 Chloride Level 97 Carbon Dioxide Level 31.7 Anion Gap 6 Blood Urea Nitrogen 20 Creatinine 0.70 Estimat Glomerular Filtration 85 Rate Random Glucose 267 Calcium Level 8.6 Date/Time Procedure Status Source Growth 08/12/16 00:30 Influenza Types A,B Antigen (ALEXA) - Final Complete Nasal Washing NEGATIVE FOR FLU A AND B ANTIGEN.... 08/11/16 10:40 Urine Culture - Final Complete Urine Catheterized Urine NO GROWTH IN 48 HOURS. 08/11/16 10:40 Legionella Antigen - Final Complete Urine Clean Catch PRESUMPTIVE NEGATIVE FOR LEGIONELLA P... 08/11/16 10:40 Streptococcus pneumoniae Antigen (M - Final Complete Urine Clean Catch PRESUMPTIVE NEGATIVE FOR STREPTOCOCCU... 08/11/16 08:30 Aerobic Blood Culture - Preliminary Resulted Blood Peripheral NO GROWTH IN 2 DAYS 08/11/16 08:30 Anaerobic Blood Culture - Preliminary Resulted Blood Peripheral NO GROWTH IN 2 DAYS Result Diagram: 08/14/16 0515 08/14/16 0515 Assessment and Plan Problem List: (1) Community acquired bacterial pneumonia ICD Code: J15.9 Status: Acute (2) Failure of outpatient treatment ICD Code: Z78.9 Status: Acute (3) Sepsis ICD Code: A41.9 Status: Acute (4) Metastatic breast cancer ICD Code: C50.919 Status: Acute Problem Qualifiers (1) Sepsis: Qualified Code: A41.9 - Sepsis, due to unspecified organism Laurie Raymond MD Aug 14, 2016 09:37
[2016-08-14] MEDS: LACTOBACILLUS ACIDOPHILUS TAB PO SCH ×2 (09:39→20:29)
--- NOTE | 2016-08-14 09:56 | HHI.PR ---
Subjective Remarks Follow-up for pneumonia Patient stated the cough has improved. She stated that the Mucinex caused her flushing. Otherwise she denies any shortness of breathing. Patient remains afebrile. Objective Vitals Vital Signs Date Time Temp Pulse Resp B/P Pulse Ox O2 Delivery O2 Flow Rate FiO2 08/14/16 08:14 93 21 08/14/16 08:00 97.1 112 18 141/85 94 08/14/16 07:31 18 08/14/16 05:10 97.7 111 18 136/92 92 08/14/16 04:11 121 08/14/16 01:22 97.4 110 18 115/67 91 08/14/16 00:06 93 21 08/13/16 21:00 Room Air 08/13/16 20:47 98 21 08/13/16 20:00 98.0 127 18 148/84 93 08/13/16 16:11 98.4 110 19 130/79 96 08/13/16 16:00 Room Air 08/13/16 12:04 97.8 103 19 132/86 94 08/13/16 12:00 Room Air I/O 08/13/16 08/13/16 08/13/16 08/14/16 08/14/16 08/14/16 07:00 15:00 23:00 07:00 15:00 23:00 Intake Total 240 ml 830 ml 760 ml 488 ml Output Total 1600 ml 900 ml 400 ml 1000 ml Balance -1360 ml -70 ml 360 ml -512 ml Intake Oral 240 ml 720 ml 760 ml 480 ml IV Total 110 ml 8 ml Output Urine Total 1600 ml 900 ml 400 ml 1000 ml # Bowel Movements 0 1 0 0 Result Diagram: 08/14/1615 08/14/1615 Objective Remarks GENERAL: in NAD sitting comfortably in bed on her computer. CARDIOVASCULAR: Regular rate and rhythm without murmurs, gallops, or rubs. RESPIRATORY: Breath sounds equal bilaterally. transmitted upper respiratory sounds. No accessory muscle use. GASTROINTESTINAL: Abdomen soft, non-tender, nondistended. MUSCULOSKELETAL: No cyanosis, or edema. BACK: Nontender without obvious deformity. No CVA tenderness. Medications and IVs Current Medications Vancomycin HCl 1 mg/Sodium Chloride 250 ml @ 250 mls/hr ONCE STAT IV Last administered on 08/11/16t 08:44; Start 08/11/16 at 08:21; Stop 08/11/16 at 09:20 ; Status DC Cefepime HCl/ Sodium Chloride (Maxipime Inj/NS Inj) 100 ml @ 200 mls/hr ONCE STAT IV Last administered on 08/11/16 09:47; Start 08/11/16 at 08:21; Stop 02/15 at 08:50; Status DC Methylprednisolone Sodium Succinate (SoluMEDROL INJ) 125 mg ONCE ONCE IVP Last administered on 08/11/16 08:44; Start 08/11/16 at 08:30; Stop 08/11/16 at 08:31; Status DC Albuterol/ Ipratropium 1 ampule 1 ampule Q15M INH Last administered on 08:39; Start 08/11/16 at 08:30; Stop 08/11/16 at 08:46; Status DC Sodium Chloride 1,000 ml @ 999 mls/hr BOLUS ONCE IV Last administered on 08/11 08:43; Start 08/11/16 at 08:30; Stop 08/11/16 at 09:30; Status DC Sodium Chloride (NS 1000 ml Inj) 1,000 ml @ 999 mls/hr BOLUS ONCE IV Last administered on 08/11/16 09:46; Start 08/11/16 at 08:30; Stop 08/11/16 at 09:30 ; Status DC Hydromorphone HCl (Dilaudid Pf Inj) 4 mg ONCE ONCE IV PUSH Last administered on 08/11/16 09:22; Start 08/11/16 at 09:00; Stop 08/11/16 at 09:02; Status DC Sodium Chloride (NS Flush) 2 ml UNSCH PRN IV FLUSH FLUSH AFTER USING IV ACCESS ; Start 08/11/16 at 10:30 Sodium Chloride (NS Flush) 2 ml BID IV FLUSH Last administered on 08/14/16 09: 31; Start 08/11/16 at 21:00 Acetaminophen (Tylenol) 650 mg Q4H PRN PO TEMP > 100.4; Start 08/11/16 at 10:30 Ondansetron HCl (Zofran Inj) 4 mg Q6H PRN IVP NAUSEA OR VOMITING; Start at 10:30 Acetaminophen (Tylenol) 650 mg Q6H PRN PO PAIN SCALE 1 TO 2 Last administered on 08/12/16 00:03; Start 08/11/16 at 10:30 Naloxone HCl (Narcan Inj) 0.4 mg UNSCH PRN IV SEE LABEL COMMENTS; Start at 10:30 Magnesium Hydroxide (Milk Of Magndex Liq) 30 ml Q12H PRN PO MILD - MODERATE CONSTIPATION; Start 08/11/16 at 10:30 Albuterol/ Ipratropium (Duoneb Neb) 1 ampule Q2HR NEB PRN NEB SOB/WHEEZING Last administered on 08/14/16 00:06; Start 08/11/16 at 10:30 Enalaprilat (Vasotec Inj) 1.25 mg Q6H PRN IV PUSH SBP>160, DBP>90; Start 08/11 at 10:30 Pantoprazole Sodium (Protonix) 40 mg DAILY PO Last administered on 08/12/16 09 :29; Start 08/12/16 at 09:00; Stop 08/12/16 at 20:22; Status DC Lactobacillus Acidophilus (Lactinex) 1 tab Q12HR PO Last administered on 09:39; Start 08/11/16 at 21:00 Budesonide (Pulmicort Respule Neb) 0.5 mg Q12HR NEB NEB Last administered on 08:12; Start 08/11/16 at 20:00 Levothyroxine Sodium 200 mcg 200 mcg DAILY@06 PO Last administered on 05:21; Start 08/12/16 at 06:00 Cefepime HCl/ Sodium Chloride (Maxipime Inj/NS Inj) 100 ml @ 200 mls/hr Q8H IV Last administered on 08/14/16 09:27; Start 08/11/16 at 18:00 Methylprednisolone Sodium Succinate (SoluMEDROL INJ) 40 mg Q12HR IV PUSH Last administered on 08/14/16 09:31; Start 08/11/16 at 21:00 Hydromorphone HCl (Dilaudid Pf Inj) 4 mg Q6H IV PUSH Last administered on 14:42; Start 08/11/16 at 15:00; Stop 08/12/16 at 15:05; Status DC Albuterol/ Ipratropium (Duoneb Neb) 1 ampule Q6HR WHILE AWAKE NEB NEB Last administered on 08/14/16 08:12; Start 08/11/16 at 20:00 Oxycodone HCl (OxyCONTIN CR) 60 mg Q12HR PRN PO BREAKTHROUGH PAIN Last administered on 08/14/16 06:06; Start 08/11/16 at 16:15 Senna/Docusate Sodium 2 tab 2 tab DAILY PO Last administered on 08/14/16 09:32 ; Start 08/12/16 at 09:00 Sodium Chloride (NS 250 ml Inj) 250 ml @ 250 mls/hr BOLUS ONCE IV ; Start 02/15 at 19:00; Stop 08/11/16 at 19:59; Status DC Polyethylene Glycol (Miralax) 17 gm DAILY PO ; Start 08/12/16 at 09:00; Stop at 15:05; Status DC Enoxaparin Sodium (Lovenox Inj) 40 mg Q24H SQ Last administered on 08/13/16 21 :04; Start 08/11/16 at 20:00 Iohexol (Omnipaque 350 Inj) 73 ml STK-MED ONCE IV Last administered on 22:19; Start 08/11/16 at 22:19; Stop 08/11/16 at 22:20; Status DC Dextrose (D50w (Vial) Inj) 50 ml UNSCH PRN IV HYPOGLYCEMIA-SEE COMMENTS; Start 08/12/16 at 09:00 Glucagon (Glucagon Inj) 1 mg UNSCH PRN OTHER HYPOGLYCEMIA-SEE COMMENTS; Start 08/12/16 at 09:00 Insulin Aspart (NovoLOG SUPPLEMENTAL SCALE) 1 ACHS SLIDING SCALE SQ Last administered on 08/14/16 06:08; Start 08/12/16 at 11:00 Guaifenesin (Mucinex Er) 600 mg BID PO Last administered on 08/13/16 21:03; Start 08/12/16 at 09:00; Stop 08/13/16 at 21:40; Status DC Zolpidem Tartrate (Ambien) 10 mg HS PRN PO INSOMNIA Last administered on 00:16; Start 08/12/16 at 09:00 Hydromorphone HCl (Dilaudid Pf Inj) 4 mg Q4H IV PUSH Last administered on 09:27; Start 08/12/16 at 17:00 Polyethylene Glycol (Miralax) 17 gm DAILY PO Last administered on 08/13/16 22: 48; Start 08/12/16 at 22:00 Famotidine (Pepcid) 20 mg BID PO Last administered on 08/14/16 09:32; Start at 21:00 Loratadine (Claritin) 10 mg ONCE ONCE PO Last administered on 08/12/16 21:22 ; Start 08/12/16 at 21:00; Stop 08/12/16 at 21:01; Status DC Loratadine (Claritin) 5 mg ONCE ONCE PO Last administered on 08/13/16 13:30; Start 08/13/16 at 13:15; Stop 08/13/16 at 13:17; Status DC Miscellaneous (Pill Splitter) 1 ea UNSCH PRN OTHER SEE LABEL COMMENTS; Start at 13:30 A/P Problem List: (1) Community acquired bacterial pneumonia ICD Code: J15.9 Status: Acute (2) Failure of outpatient treatment ICD Code: Z78.9 Status: Acute (3) Sepsis ICD Code: A41.9 Status: Acute (4) Metastatic breast cancer ICD Code: C50.919 Status: Acute Assessment and Plan 61-year-old female with Sepsis: Meets sepsis criteria; source (PNA) Heart rate over 90, RR > 20 or PaCO2 < 32, lactic acid 2.1; status post cefepime IV 1 in ED, continue with antibiotics pending culture report Community-acquired pneumonia Outpatient therapy failure for upper respiratory infection Chest x-ray with consolidative changes in upper lung CT chest noted and reviewed by me with finding of No acute abnormality demonstrated. Chronic scarring, pleural thickening and volume loss again noted on the left. Cefepime 2 mg IV every 8H Pneumococcal and Legionella urinary antigens negative. Flu A and B antigens negative Maintain oxygen saturation above 90% Patient unable to give a sputum culture. Clinically patient is doing well. Appreciate input from pulmonary medicine History of radiation induced pneumonitis COPD exacerbation On Solu-Medrol 40 mg every 12 hour, cefepime,Symbicort, Mucinex, DuoNeb scheduled and when necessary. Lung exam has much improved. Per outpatient services director continue with IV Solu-Medrol. CT chest noted and review Appreciate input from pulmonary medicine Steroid-induced hyperglycemia: Start prophylactic insulin sliding scale low Chronic pain syndrome Dilaudid schedule IV and OxyContin for breakthrough pain Scheduled softener Hypothyroidism Continue Synthroid Insomnia: Ambien when necessary History of metastasis breast cancer Appreciate input from patient's oncologist DVT prophylaxis: Lovenox Discharge Planning Patient continues to require continual hospitalization. She is on IV antibiotics and IV Solu-Medrol. Problem Qualifiers (1) Sepsis: Qualified Code: A41.9 - Sepsis, due to unspecified organism Laurie Raymond MD Aug 14, 2016 09:56
--- NOTE | 2016-08-14 11:01 | PD.ONC.PN ---
Subjective Subjective Remarks Afebrile overnight. Patient states she still notices some flushing, but feels it improved once the Mucinex was stopped. Still with wet cough. States she just feels very fatigued with malaise. Objective Data Date Time Temp Pulse Resp B/P Pulse Ox O2 Delivery O2 Flow Rate FiO2 08/14/16 10:10 18 08/14/16 09:55 93 Room Air 08/14/16 08:14 93 21 08/14/16 08:00 97.1 112 18 141/85 94 08/14/16 07:31 18 08/14/16 05:10 97.7 111 18 136/92 92 08/14/16 04:11 121 08/14/16 01:22 97.4 110 18 115/67 91 08/14/16 00:06 93 21 08/13/16 21:00 Room Air 08/13/16 20:47 98 21 08/13/16 20:00 98.0 127 18 148/84 93 08/13/16 16:11 98.4 110 19 130/79 96 08/13/16 16:00 Room Air 08/13/16 12:04 97.8 103 19 132/86 94 08/13/16 12:00 Room Air 08/14/16 08/14/16 08/14/16 07:00 15:00 23:00 Intake Total 488 ml Output Total 1000 ml Balance -512 ml Result Diagram: 08/14/1615 08/14/1615 Laboratory Results Laboratory Tests Test 08/13/16 08/14/16 21:15 05:15 Magnesium Level 2.1 MG/DL White Blood Count 12.4 TH/MM3 Red Blood Count 4.05 MIL/MM3 Hemoglobin 11.5 GM/DL Hematocrit 35.6 % Mean Corpuscular Volume 88.1 FL Mean Corpuscular Hemoglobin 28.5 PG Mean Corpuscular Hemoglobin 32.4 % Concent Red Cell Distribution Width 16.2 % Platelet Count 235 TH/MM3 Mean Platelet Volume 8.1 FL Sodium Level 135 MEQ/L Potassium Level 4.2 MEQ/L Chloride Level 97 MEQ/L Carbon Dioxide Level 31.7 MEQ/L Anion Gap 6 MEQ/L Blood Urea Nitrogen 20 MG/DL Creatinine 0.70 MG/DL Estimat Glomerular Filtration 85 ML/MIN Rate Random Glucose 267 MG/DL Calcium Level 8.6 MG/DL Culture Results Microbiology Date/Time Procedure Status Source Growth 08/12/16 00:30 Influenza Types A,B Antigen (ALEXA) - Final Complete Nasal Washing NEGATIVE FOR FLU A AND B ANTIGEN.... Administered Medications Medications (Trade) Dose Ordered Sig/Diana Route PRN Reason Start Time Stop Time Status Last Admin Dose Admin Sodium Chloride (NS Flush) 2 ml BID IV FLUSH 08/11/16 21:00 08/14/16 09:31 Acetaminophen (Tylenol) 650 mg Q6H PRN PO PAIN SCALE 1 TO 2 08/11/16 10:30 08/12/16 00:03 Lactobacillus Acidophilus (Lactinex) 1 tab Q12HR PO 08/11/16 21:00 08/14/16 09:39 Levothyroxine Sodium 200 mcg 200 mcg DAILY@06 PO 08/12/16 06:00 08/14/16 05:21 Cefepime HCl/ Sodium Chloride (Maxipime Inj/NS Inj) 100 ml @ 200 mls/hr Q8H IV 08/11/16 18:00 08/14/16 09:27 Methylprednisolone Sodium Succinate (SoluMEDROL INJ) 40 mg Q12HR IV PUSH 08/11/16 21:00 08/14/16 09:31 Oxycodone HCl (OxyCONTIN CR) 60 mg Q12HR PRN PO BREAKTHROUGH PAIN 08/11/16 16:15 08/14/16 06:06 Senna/Docusate Sodium (Tiffanie-Colace) 2 tab DAILY PO 08/12/16 09:00 08/14/16 09:32 Enoxaparin Sodium (Lovenox Inj) 40 mg Q24H SQ 08/11/16 20:00 08/13/16 21:04 Zolpidem Tartrate (Ambien) 10 mg HS PRN PO INSOMNIA 08/12/16 09:00 08/14/16 00:16 Hydromorphone HCl (Dilaudid Pf Inj) 4 mg Q4H IV PUSH 08/12/16 17:00 08/14/16 09:27 Polyethylene Glycol (Miralax) 17 gm DAILY PO 08/12/16 22:00 08/13/16 22:48 Famotidine (Pepcid) 20 mg BID PO 08/12/16 21:00 08/14/16 09:32 Objective Remarks GENERAL: Middle aged female, sitting up in bed watching TV on laptop SKIN: Warm and dry. mild flushing of face and neck. HEAD: Normocephalic. EYES: No injection or drainage. NECK: Supple, trachea midline. CARDIOVASCULAR: Regular rate and rhythm RESPIRATORY: scattered coarse rhonchi. GASTROINTESTINAL: Abdomen soft, non-tender, nondistended. EXTREMITIES: No cyanosis. lymphedema, LUE MUSCULOSKELETAL: Adequate muscle tone. NEUROLOGICAL: aox3 normal speech. moving all extremities. no obvious focal deficit. Assessment/Plan Problem List: (1) Metastatic breast cancer Status: Acute Plan: --last CT/PET scan from July 08, 2016, shows no progression. no distant site of metastatic disease. --has chronic changes in the right upper lung which is the main reason for her symptoms. --on maintenance Hal[place]--last treatment Tuesday 08/08 (2) Community acquired bacterial pneumonia Status: Acute Plan: --possible post-obstructive pneumonia --on solu-medrol 40mg IV q 12, also on pulmicort and duonebs --RUL chronic consolidation --CT chest shows chronic scarring and pleural thickening on the right, no acute changes. --CXR, 08/13 shows chronic scarring and volume loss on the right. --pulmonology following (dr. haji) --follows with Dr. Lala outpatient) --BC no growth --flu negative Assessment 61y/o female with right upper lung pneumonia and respiratory insufficiency. history of metastatic/metaplastic breast cancer-->had definitive treatment in the right upper lung area. has been on maintenance Halaven ever since. h/o Chemotherapy-induced anemia. Asthma. Right upper lung radiation pneumonitis. Chronic pain. Chronic anxiety. Diverticulosis. Hypothyroidism. Migraine headaches. Metastatic breast cancer. DCIS. Plan 1. continue antibiotics and steroids 2. monitor flushing--improved since stopped Mucinex Attending Statement The exam, history, and the medical decision-making described in the above note were completed with the assistance of the mid-level provider. I reviewed and agree with the findings presented. I attest that I had a [id number] encounter with the patient on the same day, and personally performed and documented my assessment and findings in the medical record. Flushing related to Mucinex. Still erlin but less. Chromogranin A, serotonin, 5HiAA still pending. Cont treatment and support. Discussed need to Holiday from chemotherapy in light of infection and current admission. Susana Lockett Aug 14, 2016 11:01 Yasemin Grimaldo MD Aug 14, 2016 17:53
--- NOTE | 2016-08-14 19:28 | HHI.PR ---
Subjective Remarks 61 YOWF with Metastatic breast ca, S/P RUL obectomy CT chest no ac changes Feels anxious Has ch pain No Fever Cough, no sputum. Objective Vital Signs Vital Signs Date Time Temp Pulse Resp B/P Pulse Ox O2 Delivery O2 Flow Rate FiO2 08/14/16 17:43 18 08/14/16 16:00 98.5 112 18 109/87 94 08/14/16 12:00 98.4 105 20 135/93 94 08/14/16 09:55 93 Room Air 08/14/16 08:14 93 21 08/14/16 08:00 97.1 112 18 141/85 94 08/14/16 07:31 18 08/14/16 05:10 97.7 111 18 136/92 92 08/14/16 04:11 121 08/14/16 01:22 97.4 110 18 115/67 91 08/14/16 00:06 93 21 08/13/16 21:00 Room Air 08/13/16 20:47 98 21 08/13/16 20:00 98.0 127 18 148/84 93 I/O 08/13/16 08/13/16 08/13/16 08/14/16 08/14/16 08/14/16 07:00 15:00 23:00 07:00 15:00 23:00 Intake Total 240 ml 830 ml 760 ml 488 ml 600 ml 100 ml Output Total 1600 ml 900 ml 400 ml 1000 ml 500 ml Balance -1360 ml -70 ml 360 ml -512 ml 100 ml 100 ml Intake Oral 240 ml 720 ml 760 ml 480 ml 600 ml IV Total 110 ml 8 ml 100 ml Output Urine Total 1600 ml 900 ml 400 ml 1000 ml 500 ml # Bowel Movements 0 1 0 0 1 Result Diagram: 08/14/1615 08/14/1615 Objective Remarks GENERAL: MBMN WF, mild sob SKIN: Warm and dry. HEAD: Normocephalic. EYES: No scleral icterus. No injection or drainage. NECK: Supple, trachea midline. No JVD or lymphadenopathy. CARDIOVASCULAR: Regular rate and rhythm without murmurs, gallops, or rubs. RESPIRATORY: Breath sounds equal bilaterally. No accessory muscle use. GASTROINTESTINAL: Abdomen soft, non-tender, nondistended. MUSCULOSKELETAL: No cyanosis, or edema. BACK: Nontender without obvious deformity. No CVA tenderness. A/P Assessment and Plan Lung infilt with volume loss right, chronic Metastatic breast ca S/P RULobectomy Anxiety Ch. PAin PLAN: Cont Abx Aerosol nebs IV Solumedrol Supplement 02 pain controll Jose Lee MD Aug 14, 2016 19:27
[2016-08-14] MEDS: ENOXAPARIN SODIUM 40 MG/0.4 ML SYRINGE SQ SCH ×2 (20:29→20:34)
[2016-08-15] VITALS (8 sets, daily range): BP systolic 0–163; BP diastolic 78–88; PULSE 106–121; RESP 18–20; TEMP 97.5–97.9; O2SAT 92–96
[2016-08-15] MEDS: ZOLPIDEM TARTRATE 10 MG TAB PO PRN (00:41)
[2016-08-15] MEDS: HYDROmorphone HCL PF 4 MG/ML VIAL IV PUSH SCH ×6 (00:42→21:00)
[2016-08-15] MEDS: CEFEPIME INJ 2,000 MG in SODIUM CHLORIDE 0.9% INJ 100 ML IV SCH ×3 (01:32→17:21)
[2016-08-15] MEDS: LEVOTHYROXINE SODIUM 200 MCG TAB PO SCH (05:19)
[2016-08-15] MEDS: INSULIN ASPART SUPPLEMENTAL SCALE SQ SCH ×4 (05:24→21:45)
[2016-08-15] MEDS: oxyCODONE HCL 20 MG CONTROLLED RELEASE TAB PO PRN ×2 (06:16→18:07)
[2016-08-15] MEDS: RESP: ALBUTEROL 2.5 MG/IPRATROPIUM 0.5 MG NEB (SCH) NEB ×2 (07:37→12:25)
[2016-08-15] MEDS: RESP: BUDESONIDE 0.5 MG/2 ML NEB NEB SCH (07:38)
[2016-08-15] MEDS: SODIUM CHLORIDE 0.9% FLUSH 10 ML FLUSH IV FLUSH SCH ×2 (09:12→21:42)
[2016-08-15] MEDS: methylPREDNISolone SOD SUCC 40 MG/1 ML VIAL IV PUSH SCH (09:13)
[2016-08-15] MEDS: LACTOBACILLUS ACIDOPHILUS TAB PO SCH ×2 (09:13→21:41)
[2016-08-15] MEDS: DOCUSATE SODIUM 50 MG/SENNA 8.6 MG TAB PO SCH (09:14)
[2016-08-15] MEDS: FAMOTIDINE 20 MG TAB PO SCH ×2 (09:14→21:41)
[2016-08-15] MEDS: POLYETHYLENE GLYCOL 17 GM PKG PO SCH (09:16)
--- NOTE | 2016-08-15 09:57 | PD.ONC.PN ---
Subjective Subjective Remarks Afebrile overnight. Patient resting in bed. Continues to have coarse cough and chest pain/heaviness. She feels her congestion has increased. Flushing improved. Objective Data Date Time Temp Pulse Resp B/P Pulse Ox O2 Delivery O2 Flow Rate FiO2 08/15/16 08:13 97.6 111 18 117/88 95 08/15/16 05:00 97.9 106 20 163/86 93 08/15/16 04:00 Room Air 08/15/16 00:00 Room Air 21 08/14/16 20:48 93 08/14/16 20:00 98.7 119 20 124/84 93 08/14/16 20:00 Room Air 08/14/16 19:55 120 08/14/16 17:43 18 08/14/16 16:00 98.5 112 18 109/87 94 08/14/16 12:00 98.4 105 20 135/93 94 Result Diagram: 08/14/1615 08/14/1615 Administered Medications Medications (Trade) Dose Ordered Sig/Diana Route PRN Reason Start Time Stop Time Status Last Admin Dose Admin Sodium Chloride (NS Flush) 2 ml UNSCH PRN IV FLUSH FLUSH AFTER USING IV ACCESS 08/11/16 10:30 08/15/16 00:43 Sodium Chloride (NS Flush) 2 ml BID IV FLUSH 08/11/16 21:00 08/15/16 09:12 Acetaminophen (Tylenol) 650 mg Q6H PRN PO PAIN SCALE 1 TO 2 08/11/16 10:30 08/12/16 00:03 Lactobacillus Acidophilus (Lactinex) 1 tab Q12HR PO 08/11/16 21:00 08/15/16 09:13 Levothyroxine Sodium 200 mcg 200 mcg DAILY@06 PO 08/12/16 06:00 08/15/16 05:19 Cefepime HCl/ Sodium Chloride (Maxipime Inj/NS Inj) 100 ml @ 200 mls/hr Q8H IV 08/11/16 18:00 08/15/16 09:12 Methylprednisolone Sodium Succinate (SoluMEDROL INJ) 40 mg Q12HR IV PUSH 08/11/16 21:00 08/15/16 09:13 Oxycodone HCl (OxyCONTIN CR) 60 mg Q12HR PRN PO BREAKTHROUGH PAIN 08/11/16 16:15 08/15/16 06:16 Senna/Docusate Sodium (Tiffanie-Colace) 2 tab DAILY PO 08/12/16 09:00 08/15/16 09:14 Enoxaparin Sodium (Lovenox Inj) 40 mg Q24H SQ 08/11/16 20:00 08/14/16 20:34 Zolpidem Tartrate (Ambien) 10 mg HS PRN PO INSOMNIA 08/12/16 09:00 08/15/16 00:41 Hydromorphone HCl (Dilaudid Pf Inj) 4 mg Q4H IV PUSH 08/12/16 17:00 08/15/16 09:14 Polyethylene Glycol (Miralax) 17 gm DAILY PO 08/12/16 22:00 08/15/16 09:16 Famotidine (Pepcid) 20 mg BID PO 08/12/16 21:00 08/15/16 09:14 Objective Remarks GENERAL: chronically ill female, upright in bed, sleeping on approach, awakens to verbal stimuli. SKIN: Warm and dry. mild flushing of face and neck. HEAD: Normocephalic. EYES: No injection or drainage. NECK: Supple, trachea midline. CARDIOVASCULAR: Regular rate and rhythm RESPIRATORY: coarse rhonchi all lung viveros. GASTROINTESTINAL: Abdomen soft, non-tender, nondistended. EXTREMITIES: No cyanosis. lymphedema, LUE MUSCULOSKELETAL: Adequate muscle tone. NEUROLOGICAL: awake and alert, normal speech. moving all extremities. Assessment/Plan Problem List: (1) Metastatic breast cancer Status: Acute Plan: --last CT/PET scan from July 08, 2016, shows no progression. no distant site of metastatic disease. --has chronic changes in the right upper lung which is the main reason for her symptoms. --on maintenance Hal[place]--last treatment Tuesday 08/08 (2) Community acquired bacterial pneumonia Status: Acute Plan: --possible post-obstructive pneumonia --on solu-medrol 40mg IV q 12, also on pulmicort and duonebs --RUL chronic consolidation --CT chest shows chronic scarring and pleural thickening on the right, no acute changes. --CXR, 08/13 shows chronic scarring and volume loss on the right. --pulmonology following (dr. haji) --follows with Dr. Lala outpatient) --BC no growth --flu negative Assessment 61y/o female with right upper lung pneumonia and respiratory insufficiency. history of metastatic/metaplastic breast cancer-->had definitive treatment in the right upper lung area. has been on maintenance Hal[place] ever since. h/o Chemotherapy-induced anemia. Asthma. Right upper lung radiation pneumonitis. Chronic pain. Chronic anxiety. Diverticulosis. Hypothyroidism. Migraine headaches. Metastatic breast cancer. DCIS. Plan 1. continue abx, steroids, duonebs 2. await chromogranin A, serotonin, 5HiAA 3. continue pain management, supportive care Attending Statement The exam, history, and the medical decision-making described in the above note were completed with the assistance of the mid-level provider. I reviewed and agree with the findings presented. I attest that I had a [id number] encounter with the patient on the same day, and personally performed and documented my assessment and findings in the medical record. PT seen and examined. Still has a erlin complexion, notice it extending to upper thigh. Suspect cephalosporin, no prior h/o of allergies. Pt discussed w/ area field person a switch in ABx therapy- stopping Cefepime. Continue support. FU in clinic when DC. Anticipate holding Halaven until recovered from URI. Still coughing, productive, still tachycardic. Susana Lockett Aug 15, 2016 09:57 Yasemin Grimaldo MD Aug 15, 2016 19:18
--- NOTE | 2016-08-15 10:47 | HHI.PR ---
Subjective Remarks Follow-up for respiratory failure due to pneumonia Patient stated she feels the same. She stated that she feels congested but not able to cough up any mucus. Patient also asking for her MiraLAX to be scheduled at 10 PM. She's also requesting Ventolin to be at her bedside. Otherwise remains afebrile she has no other complaints. Objective Vitals Vital Signs Date Time Temp Pulse Resp B/P Pulse Ox O2 Delivery O2 Flow Rate FiO2 08/15/16 09:59 18 08/15/16 08:13 97.6 111 18 117/88 95 08/15/16 05:00 97.9 106 20 163/86 93 08/15/16 04:00 Room Air 08/15/16 00:00 Room Air 21 08/14/16 20:48 93 08/14/16 20:00 98.7 119 20 124/84 93 08/14/16 20:00 Room Air 08/14/16 19:55 120 08/14/16 16:00 98.5 112 18 109/87 94 08/14/16 12:00 98.4 105 20 135/93 94 I/O 08/14/16 08/14/16 08/14/16 08/15/16 08/15/16 08/15/16 07:00 15:00 23:00 07:00 15:00 23:00 Intake Total 488 ml 600 ml 580 ml Output Total 1000 ml 500 ml Balance -512 ml 100 ml 580 ml Intake Oral 480 ml 600 ml 480 ml IV Total 8 ml 100 ml Output Urine Total 1000 ml 500 ml # Voids 2 # Bowel Movements 0 1 0 Result Diagram: 08/14/16 0515 08/14/16 0515 Objective Remarks GENERAL: in NAD sitting comfortably in bed on her computer. CARDIOVASCULAR: Regular rate and rhythm without murmurs, gallops, or rubs. RESPIRATORY: Breath sounds equal bilaterally. Diffuse rhonchi. No wheezing noted. No accessory muscle use. GASTROINTESTINAL: Abdomen soft, non-tender, nondistended. MUSCULOSKELETAL: No cyanosis, or edema. BACK: Nontender without obvious deformity. No CVA tenderness. Medications and IVs Current Medications Vancomycin HCl 1 mg/Sodium Chloride 250 ml @ 250 mls/hr ONCE STAT IV Last administered on 08/11/16t 08:44; Start 08/11/16 at 08:21; Stop 08/11/16 at 09:20 ; Status DC Cefepime HCl/ Sodium Chloride (Maxipime Inj/NS Inj) 100 ml @ 200 mls/hr ONCE STAT IV Last administered on 08/11/16 09:47; Start 08/11/16 at 08:21; Stop 02/15 at 08:50; Status DC Methylprednisolone Sodium Succinate (SoluMEDROL INJ) 125 mg ONCE ONCE IVP Last administered on 08/11/16 08:44; Start 08/11/16 at 08:30; Stop 08/11/16 at 08:31; Status DC Albuterol/ Ipratropium 1 ampule 1 ampule Q15M INH Last administered on 08:39; Start 08/11/16 at 08:30; Stop 08/11/16 at 08:46; Status DC Sodium Chloride 1,000 ml @ 999 mls/hr BOLUS ONCE IV Last administered on 08/11 08:43; Start 08/11/16 at 08:30; Stop 08/11/16 at 09:30; Status DC Sodium Chloride (NS 1000 ml Inj) 1,000 ml @ 999 mls/hr BOLUS ONCE IV Last administered on 08/11/16 09:46; Start 08/11/16 at 08:30; Stop 08/11/16 at 09:30 ; Status DC Hydromorphone HCl (Dilaudid Pf Inj) 4 mg ONCE ONCE IV PUSH Last administered on 08/11/16 09:22; Start 08/11/16 at 09:00; Stop 08/11/16 at 09:02; Status DC Sodium Chloride (NS Flush) 2 ml UNSCH PRN IV FLUSH FLUSH AFTER USING IV ACCESS Last administered on 08/15/16 00:43; Start 08/11/16 at 10:30 Sodium Chloride (NS Flush) 2 ml BID IV FLUSH Last administered on 08/15/16 09: 12; Start 08/11/16 at 21:00 Acetaminophen (Tylenol) 650 mg Q4H PRN PO TEMP > 100.4; Start 08/11/16 at 10:30 Ondansetron HCl (Zofran Inj) 4 mg Q6H PRN IVP NAUSEA OR VOMITING; Start at 10:30 Acetaminophen (Tylenol) 650 mg Q6H PRN PO PAIN SCALE 1 TO 2 Last administered on 08/12/16 00:03; Start 08/11/16 at 10:30 Naloxone HCl (Narcan Inj) 0.4 mg UNSCH PRN IV SEE LABEL COMMENTS; Start at 10:30 Magnesium Hydroxide (Milk Of Magndex Liq) 30 ml Q12H PRN PO MILD - MODERATE CONSTIPATION; Start 08/11/16 at 10:30 Albuterol/ Ipratropium (Duoneb Neb) 1 ampule Q2HR NEB PRN NEB SOB/WHEEZING Last administered on 08/14/16 00:06; Start 08/11/16 at 10:30 Enalaprilat (Vasotec Inj) 1.25 mg Q6H PRN IV PUSH SBP>160, DBP>90; Start 08/11 at 10:30 Pantoprazole Sodium (Protonix) 40 mg DAILY PO Last administered on 08/12/16 09 :29; Start 08/12/16 at 09:00; Stop 08/12/16 at 20:22; Status DC Lactobacillus Acidophilus (Lactinex) 1 tab Q12HR PO Last administered on 09:13; Start 08/11/16 at 21:00 Budesonide (Pulmicort Respule Neb) 0.5 mg Q12HR NEB NEB Last administered on 07:38; Start 08/11/16 at 20:00 Levothyroxine Sodium 200 mcg 200 mcg DAILY@06 PO Last administered on 05:19; Start 08/12/16 at 06:00 Cefepime HCl/ Sodium Chloride (Maxipime Inj/NS Inj) 100 ml @ 200 mls/hr Q8H IV Last administered on 08/15/16 09:12; Start 08/11/16 at 18:00 Methylprednisolone Sodium Succinate (SoluMEDROL INJ) 40 mg Q12HR IV PUSH Last administered on 08/15/16 09:13; Start 08/11/16 at 21:00 Hydromorphone HCl (Dilaudid Pf Inj) 4 mg Q6H IV PUSH Last administered on 14:42; Start 08/11/16 at 15:00; Stop 08/12/16 at 15:05; Status DC Albuterol/ Ipratropium (Duoneb Neb) 1 ampule Q6HR WHILE AWAKE NEB NEB Last administered on 08/15/16 07:37; Start 08/11/16 at 20:00 Oxycodone HCl (OxyCONTIN CR) 60 mg Q12HR PRN PO BREAKTHROUGH PAIN Last administered on 08/15/16 06:16; Start 08/11/16 at 16:15 Senna/Docusate Sodium 2 tab 2 tab DAILY PO Last administered on 08/15/16 09:14 ; Start 08/12/16 at 09:00 Sodium Chloride (NS 250 ml Inj) 250 ml @ 250 mls/hr BOLUS ONCE IV ; Start 02/15 at 19:00; Stop 08/11/16 at 19:59; Status DC Polyethylene Glycol (Miralax) 17 gm DAILY PO ; Start 08/12/16 at 09:00; Stop at 15:05; Status DC Enoxaparin Sodium (Lovenox Inj) 40 mg Q24H SQ Last administered on 08/14/16 20 :34; Start 08/11/16 at 20:00 Iohexol (Omnipaque 350 Inj) 73 ml STK-MED ONCE IV Last administered on 22:19; Start 08/11/16 at 22:19; Stop 08/11/16 at 22:20; Status DC Dextrose (D50w (Vial) Inj) 50 ml UNSCH PRN IV HYPOGLYCEMIA-SEE COMMENTS; Start 08/12/16 at 09:00 Glucagon (Glucagon Inj) 1 mg UNSCH PRN OTHER HYPOGLYCEMIA-SEE COMMENTS; Start 08/12/16 at 09:00 Insulin Aspart (NovoLOG SUPPLEMENTAL SCALE) 1 ACHS SLIDING SCALE SQ Last administered on 08/15/16 05:24; Start 08/12/16 at 11:00 Guaifenesin (Mucinex Er) 600 mg BID PO Last administered on 08/13/16 21:03; Start 08/12/16 at 09:00; Stop 08/13/16 at 21:40; Status DC Zolpidem Tartrate (Ambien) 10 mg HS PRN PO INSOMNIA Last administered on 00:41; Start 08/12/16 at 09:00 Hydromorphone HCl (Dilaudid Pf Inj) 4 mg Q4H IV PUSH Last administered on 09:14; Start 08/12/16 at 17:00 Polyethylene Glycol (Miralax) 17 gm DAILY PO Last administered on 08/15/16 09: 16; Start 08/12/16 at 22:00 Famotidine (Pepcid) 20 mg BID PO Last administered on 08/15/16 09:14; Start at 21:00 Loratadine (Claritin) 10 mg ONCE ONCE PO Last administered on 08/12/16 21:22 ; Start 08/12/16 at 21:00; Stop 08/12/16 at 21:01; Status DC Loratadine (Claritin) 5 mg ONCE ONCE PO Last administered on 08/13/16 13:30; Start 08/13/16 at 13:15; Stop 08/13/16 at 13:17; Status DC Miscellaneous (Pill Splitter) 1 ea UNSCH PRN OTHER SEE LABEL COMMENTS; Start at 13:30 A/P Problem List: (1) Community acquired bacterial pneumonia ICD Code: J15.9 Status: Acute (2) Failure of outpatient treatment ICD Code: Z78.9 Status: Acute (3) Sepsis ICD Code: A41.9 Status: Acute (4) Metastatic breast cancer ICD Code: C50.919 Status: Acute Assessment and Plan 61-year-old female with Sepsis: Meets sepsis criteria; source (PNA) Heart rate over 90, RR > 20 or PaCO2 < 32, lactic acid 2.1; status post cefepime IV 1 in ED. cultures are negative. Community-acquired pneumonia Outpatient therapy failure for upper respiratory infection Chest x-ray with consolidative changes in upper lung CT chest noted and reviewed by me with finding of No acute abnormality demonstrated. Chronic scarring, pleural thickening and volume loss again noted on the left. Cefepime 2 mg IV every 8H Pneumococcal and Legionella urinary antigens negative. Flu A and B antigens negative Maintain oxygen saturation above 90% Patient unable to give a sputum culture. Clinically patient is doing well. Appreciate input from pulmonary medicine History of radiation induced pneumonitis COPD exacerbation On Solu-Medrol 40 mg every 12 hour, cefepime,Symbicort, Mucinex, DuoNeb scheduled and when necessary. Lung exam has much improved. Per youth advocate continue with IV Solu-Medrol. CT chest noted and review Appreciate input from pulmonary medicine Steroid-induced hyperglycemia: Start prophylactic insulin sliding scale low Chronic pain syndrome Dilaudid schedule IV and OxyContin for breakthrough pain Scheduled softener Hypothyroidism Continue Synthroid Insomnia: Ambien when necessary History of metastasis breast cancer Appreciate input from patient's oncologist COPD Will order Ventolin at bedside. Chronic constipation We'll schedule MiraLAX at 10 PM since patient stated that this is her regimen and she requests this. DVT prophylaxis: Lovenox Discharge Planning Patient continues to require continual hospitalization. She is on IV antibiotics and IV Solu-Medrol. Problem Qualifiers (1) Sepsis: Qualified Code: A41.9 - Sepsis, due to unspecified organism Laurie Raymond MD Aug 15, 2016 10:47
[2016-08-15] MEDS: ALBUTEROL SULFATE 90 MCG/ACT HFA 8 GM INHALER INH SCH ×3 (13:24→21:42)
--- NOTE | 2016-08-15 18:16 | HHI.PR ---
Subjective Remarks 61 YOWF with Metastatic breast ca, S/P RUL obectomy CT chest no ac changes Feels anxious Has ch pain No Fever Cough, no sputum. Ambulates Anxious to go home Objective Vital Signs Vital Signs Date Time Temp Pulse Resp B/P Pulse Ox O2 Delivery O2 Flow Rate FiO2 08/15/16 18:06 18 08/15/16 16:23 97.9 114 19 134/79 92 08/15/16 12:22 97.9 112 18 112/82 93 08/15/16 11:00 93 Room Air 08/15/16 08:13 97.6 111 18 117/88 95 08/15/16 05:00 97.9 106 20 163/86 93 08/15/16 04:00 Room Air 08/15/16 00:00 Room Air 21 08/14/16 20:48 93 08/14/16 20:00 98.7 119 20 124/84 93 08/14/16 20:00 Room Air 08/14/16 19:55 120 I/O 08/14/16 08/14/16 08/14/16 08/15/16 08/15/16 08/15/16 07:00 15:00 23:00 07:00 15:00 23:00 Intake Total 488 ml 600 ml 580 ml 920 ml Output Total 1000 ml 500 ml Balance -512 ml 100 ml 580 ml 920 ml Intake Oral 480 ml 600 ml 480 ml 720 ml IV Total 8 ml 100 ml 200 ml Output Urine Total 1000 ml 500 ml # Voids 2 3 # Bowel Movements 0 1 0 0 Result Diagram: 08/14/1615 08/14/1615 Objective Remarks GENERAL: MBMN WF, mild sob SKIN: Warm and dry. HEAD: Normocephalic. EYES: No scleral icterus. No injection or drainage. NECK: Supple, trachea midline. No JVD or lymphadenopathy. CARDIOVASCULAR: Regular rate and rhythm without murmurs, gallops, or rubs. RESPIRATORY: Breath sounds equal bilaterally. No accessory muscle use. GASTROINTESTINAL: Abdomen soft, non-tender, nondistended. MUSCULOSKELETAL: No cyanosis, or edema. BACK: Nontender without obvious deformity. No CVA tenderness. A/P Assessment and Plan Lung infilt with volume loss right, chronic Metastatic breast ca S/P RULobectomy Anxiety Ch. PAin PLAN: Change to Po Abx Levaquin Aerosol nebs DC Solumedrol Pred 10 mg tid Supplement 02 She will FU with Jose Lizama MD Aug 15, 2016 18:16
[2016-08-15] MEDS: RESP: ALBUTEROL 2.5 MG/IPRATROPIUM 0.5 MG NEB (PRN) NEB ×2 (20:02→23:26)
[2016-08-15] MEDS ORDERED: POLYETHYLENE GLYCOL 17 GM PKG PO SCH (22:00)
[2016-08-16 00:10] VITALS: BP 101/62; PULSE 117; RESP 18; TEMP 97.9; O2SAT 93
[2016-08-16] MEDS: HYDROmorphone HCL PF 4 MG/ML VIAL IV PUSH SCH ×4 (00:55→12:48)
[2016-08-16] MEDS: ALBUTEROL SULFATE 90 MCG/ACT HFA 8 GM INHALER INH SCH ×4 (00:56→12:00)
[2016-08-16 05:27] VITALS: BP 104/63; PULSE 103; RESP 18; TEMP 97.4; O2SAT 93
[2016-08-16] MEDS: INSULIN ASPART SUPPLEMENTAL SCALE SQ SCH ×2 (05:31→11:00)
[2016-08-16] MEDS: LEVOTHYROXINE SODIUM 200 MCG TAB PO SCH (05:31)
[2016-08-16] MEDS: oxyCODONE HCL 20 MG CONTROLLED RELEASE TAB PO PRN (06:43)
[2016-08-16] MEDS: RESP: BUDESONIDE 0.5 MG/2 ML NEB NEB SCH (07:36)
[2016-08-16 08:00] VITALS: BP 126/85; PULSE 110; RESP 20; TEMP 97.8; O2SAT 92
[2016-08-16] MEDS ORDERED: LEVOFLOXACIN 500 MG TAB PO SCH (09:00)
[2016-08-16] MEDS: LACTOBACILLUS ACIDOPHILUS TAB PO SCH (09:13)
[2016-08-16] MEDS: DOCUSATE SODIUM 50 MG/SENNA 8.6 MG TAB PO SCH (09:13)
[2016-08-16] MEDS: FAMOTIDINE 20 MG TAB PO SCH (09:13)
[2016-08-16] MEDS: predniSONE 10 MG TAB PO SCH ×2 (09:13→12:48)
[2016-08-16] MEDS: SODIUM CHLORIDE 0.9% FLUSH 10 ML FLUSH IV FLUSH SCH (09:19)
--- NOTE | 2016-08-16 10:26 | PD.ONC.PN ---
Subjective Subjective Remarks Afebrile overnight SOB unchanged Denies current chest pain Objective Data Date Time Temp Pulse Resp B/P Pulse Ox O2 Delivery O2 Flow Rate FiO2 08/16/16 08:00 97.8 110 20 126/85 92 08/16/16 05:27 97.4 103 18 104/63 93 08/16/16 04:00 Room Air 08/16/16 00:10 97.9 117 18 101/62 93 08/16/16 00:00 Room Air 08/15/16 23:29 95 21 08/15/16 20:30 121 08/15/16 20:25 97.5 121 18 126/78 94 0/ 08/15/16 20:04 96 08/15/16 18:06 18 08/15/16 16:23 97.9 114 19 134/79 92 08/15/16 12:22 97.9 112 18 112/82 93 08/15/16 11:00 93 Room Air 08/16/16 08/16/16 08/16/16 07:00 15:00 23:00 Intake Total 600 ml Output Total 900 ml Balance -300 ml Result Diagram: 08/14/1615 08/14/1615 Administered Medications Medications (Trade) Dose Ordered Sig/Diana Route PRN Reason Start Time Stop Time Status Last Admin Dose Admin Sodium Chloride (NS Flush) 2 ml UNSCH PRN IV FLUSH FLUSH AFTER USING IV ACCESS 08/11/16 10:30 08/15/16 00:43 Sodium Chloride (NS Flush) 2 ml BID IV FLUSH 08/11/16 21:00 08/16/16 09:19 Acetaminophen (Tylenol) 650 mg Q6H PRN PO PAIN SCALE 1 TO 2 08/11/16 10:30 08/12/16 00:03 Lactobacillus Acidophilus (Lactinex) 1 tab Q12HR PO 08/11/16 21:00 08/16/16 09:13 Levothyroxine Sodium (Synthroid) 200 mcg DAILY@06 PO 08/12/16 06:00 08/16/16 05:31 Oxycodone HCl (OxyCONTIN CR) 60 mg Q12HR PRN PO BREAKTHROUGH PAIN 08/11/16 16:15 08/16/16 06:43 Senna/Docusate Sodium (Tiffanie-Colace) 2 tab DAILY PO 08/12/16 09:00 08/16/16 09:13 Enoxaparin Sodium (Lovenox Inj) 40 mg Q24H SQ 08/11/16 20:00 08/14/16 20:34 Zolpidem Tartrate (Ambien) 10 mg HS PRN PO INSOMNIA 08/12/16 09:00 08/15/16 00:41 Hydromorphone HCl (Dilaudid Pf Inj) 4 mg Q4H IV PUSH 08/12/16 17:00 08/16/16 09:00 Famotidine (Pepcid) 20 mg BID PO 08/12/16 21:00 08/16/16 09:13 Albuterol Sulfate (Proair Hfa Inh) 2 puff Q4HR INH 08/15/16 12:00 08/16/16 08:00 Polyethylene Glycol (Miralax) 17 gm DAILY@22 PO 08/15/16 22:00 08/15/16 21:41 Prednisone (Deltasone) 10 mg TID PO 08/16/16 09:00 08/16/16 09:13 Levofloxacin (Levaquin) 500 mg DAILY PO 08/16/16 09:00 08/16/16 09:13 Objective Remarks GENERAL: Tired appearing older female resting in bed watching TV on her computer. SKIN: Warm and dry. Minimal flushing of face and neck remains. HEAD: Normocephalic. EYES: Mild exophthalmos. NECK: Supple, trachea midline. CARDIOVASCULAR: +S1, S2. RESPIRATORY: Coarse rhonchi all lung viveros, worse on L. GASTROINTESTINAL: Abdomen soft, non-tender, nondistended. EXTREMITIES: No cyanosis. Significant lymphedema to left upper extremity. MUSCULOSKELETAL: Adequate muscle tone. NEUROLOGICAL: Awake and alert, normal speech. Moving all extremities. Assessment/Plan Assessment 61y/o female with right upper lung pneumonia and respiratory insufficiency. history of metastatic/metaplastic breast cancer-->had definitive treatment in the right upper lung area. has been on maintenance [place] ever since. h/o Chemotherapy-induced anemia. Asthma. Right upper lung radiation pneumonitis. Chronic pain. Chronic anxiety. Diverticulosis. Hypothyroidism. Migraine headaches. Metastatic breast cancer. DCIS. Plan 1. Continue Levaquin, steroids and breathing treatments as ordered. 2. Chromogranin A negative. Serotonin, 5-HIAA pending. 3. Her chemotherapy regimen with Halaven will be placed on hold until she is fully recovered from current URI. Attending Statement The exam, history, and the medical decision-making described in the above note were completed with the assistance of the mid-level provider. I reviewed and agree with the findings presented. I attest that I had a [id number] encounter with the patient on the same day, and personally performed and documented my assessment and findings in the medical record. patient has extensive ronchi as assures me this is her norm. Ct of thorax reviewed and much of right lung consolidated. she can go home and will take levaquin. She will continue prednisone 30 mg daily for five days then decrease to 20 mg for 5 days, then if tolerated decrease to 10 mg. she will follow up with Dr. Hansen this week and with Dr. Grimaldo and return to hospital if she worsens in the meantime. okay for discharge. Jackelyn Alexandre Aug 16, 2016 10:26 Macho Go MD Aug 16, 2016 13:56
[2016-08-16] MEDS ORDERED: LEVA500T20 PO (10:27)
[2016-08-16] MEDS ORDERED: PRED10 PO ×2 (10:27→14:40)
[2016-08-16] MEDS ORDERED: LACT PO (10:27)
--- NOTE | 2016-08-16 10:27 | HHI.DS ---
Discharge Summary Admission Date Aug 11, 2016 at 10:11 Discharge Date: Aug 16, 2016 Admitting Diagnosis sepsis, respiratory symptoms, history of breast cancer (1) Community acquired bacterial pneumonia ICD Code: J15.9 Diagnosis: Principal (2) Failure of outpatient treatment ICD Code: Z78.9 Diagnosis: Principal (3) Sepsis ICD Code: A41.9 Diagnosis: Principal (4) Metastatic breast cancer ICD Code: C50.919 Diagnosis: Secondary Procedures see hospital course Brief History - From Admission 61-year-old female with a history of metastasis breast cancer, radiation induced pneumonitis presented to the ED for evaluation of worsening cough production described as greenish and brown, subjective fever along with shortness of breath. Patient was diagnosed with upper respiratory infection on 08/07/16 and started on Cipro 500 mg by mouth twice a day however continue to have worsening URI symptoms despite treatment with Tylenol for the fever of 100.1 yesterday 08/10/16. Patient also reported worsening of shortness of breath despite nebulizer treatment. On admissions, vitals temperature 98.7, HR 126, RR 20, BP 117/88 with oxygen saturation room air 94%. Abnormal lab include lactic acid 2.1. Patient denies any hematuria, GI bleed. CBC/BMP: 08/14/16 0515 08/14/16 0515 Significant Findings Laboratory Tests Test 08/14/16 05:15 White Blood Count 12.4 TH/MM3 (4.0-11.0) Hemoglobin 11.5 GM/DL (11.6-15.3) Sodium Level 135 MEQ/L (136-145) Chloride Level 97 MEQ/L (98-107) Blood Urea Nitrogen 20 MG/DL (7-18) Estimat Glomerular Filtration 85 ML/MIN (>89) Rate Random Glucose 267 MG/DL (74-106) Imaging Last Impressions Chest X-Ray 08/13/16 0000 Signed Impressions: Service Date/Time: Saturday, August 13, 2016 20:27 - CONCLUSION: Unchanged. Chronic consolidation/scarring and volume loss on the right. Corey Loomis MD Chest CT 08/11/16 0000 Signed Impressions: Service Date/Time: Thursday, August 11, 2016 22:12 - CONCLUSION: No acute abnormality demonstrated. Chronic scarring, pleural thickening and volume loss again noted on the left. Previous left mastectomy. Corey Loomis MD PE at Discharge GENERAL: in NAD sitting comfortably in bed on her computer. CARDIOVASCULAR: Regular rate and rhythm without murmurs, gallops, or rubs. RESPIRATORY: Breath sounds equal bilaterally. + Diffuse rhonchi. No wheezing noted. No accessory muscle use. GASTROINTESTINAL: Abdomen soft, non-tender, nondistended. MUSCULOSKELETAL: No cyanosis, or edema. BACK: Nontender without obvious deformity. No CVA tenderness. Pt update on day of discharge f/u for PNA patient stated she feel better and feel like congestion is coming up. SOB has improved and she is not on oxygen. she has no other complaints. she remains afebrile. patient stated she is okay with going home today. she stated she has lots of family support. Hospital Course 61-year-old female with Sepsis: Meets sepsis criteria; source (PNA) Heart rate over 90, RR > 20 or PaCO2 < 32, lactic acid 2.1; status post cefepime IV 1 in ED. cultures are negative. Community-acquired pneumonia Outpatient therapy failure for upper respiratory infection Chest x-ray with consolidative changes in upper lung CT chest No acute abnormality demonstrated. Chronic scarring, pleural thickening and volume loss again noted on the left. Cefepime 2 mg IV every 8H later d.c to possible allergy to PO levaquin. Pneumococcal and Legionella urinary antigens negative. Flu A and B antigens negative Maintain oxygen saturation above 90% History of radiation induced pneumonitis COPD exacerbation Initially on On Solu-Medrol 40 mg every 12 hour, cefepime,Symbicort, Mucinex , DuoNeb scheduled and when necessary. Refractory Repairer consulted. Refractory Repairer then switch to PO prednisone 10 mg PO TID but Oncologist want patient on 30 mg PO for 5 day then 20 mg PO for 5 days then 10 mg Po daily. Steroid-induced hyperglycemia: was put on prophylactic insulin sliding scale low Chronic pain syndrome Dilaudid schedule IV and OxyContin for breakthrough pain Scheduled softener Hypothyroidism Continue Synthroid Insomnia: Ambien when necessary History of metastasis breast cancer Appreciate input from patient's oncologist patient will take a holiday and f/u with Oncologist as outpatient. Chronic constipation on schedule MiraLAX at 10 PM . Pt Condition on Discharge: Stable Discharge Disposition: Discharge Home Discharge Time: > 30 minutes Discharge Instructions DIET: Follow Instructions for: As Tolerated, No Restrictions Activities you can perform: Regular-No Restrictions Follow up Referrals: Oncology - 1 Week PCP Follow-up - 1 Week Pulmonology - 1 Week with Hoa Lala MD New Medications: Prednisone (Prednisone) 10 Mg Tab 10 MG PO DAILY take 30 mg daily for 5 days then 20 mg daily for 5 days then 10 mg daily for 5 days as directed by your Oncologist. Pneumonia #30 Ref 0 TAB Lactobacillus Acidophilus (Acidophilus/l-Sporogenes) 1 Tab Tab 1 TAB PO Q12HR probiotics #14 Ref 0 TAB Levofloxacin (Levaquin) 500 Mg Tablet 500 MG PO DAILY pneumonia #5 Ref 0 TAB Continued Medications: Albuterol Neb (Albuterol Neb) 2.5 Mg/0.5 Ml Neb 2.5 MG NEB Q4HR NEB Note: The Albuterol Sulfate Inhalation Solution is concentrated and must be diluted. Read complete instructions carefully before using. PRN WHEEZING EA Budesonide Neb (Pulmicort Respules) 0.5 Mg/2 Ml Neb 0.5 MG NEB Q12HR NEB Breathing Treatment #60 Ref 0 NEBULE Hydromorphone HCl/Pf (Dilaudid 4 mg/ml Syringe) 4 Mg/1 Ml Syringe 4 MG IV PUSH Q4-6H Levothyroxine (Synthroid) 200 Mcg Tab 200 MCG PO DAILY Thyroid #30 Ref 0 TAB Ondansetron (Zofran) 4 Mg Tab 4 MG PO Q6HR PRN NAUSEA OR VOMITING Ref 0 TAB Oxycodone (Oxycodone) 15 Mg Tab 15 MG PO Q6H PRN PAIN Ref 0 TAB Oxycodone ER (Oxycontin) 60 Mg Tab 60 MG PO Q12HR Pain Management Ref 0 TAB Prochlorperazine Maleate (Prochlorperazine Maleate) 10 Mg Tab 10 MG PO Q4H PRN NAUSEA OR VOMITING Ref 0 TAB Zolpidem (Zolpidem) 10 Mg Tab 10 MG PO HS PRN INSOMNIA Ref 0 TAB Discontinued Medications: Ciprofloxacin (Cipro) 250 Mg Tab 250 MG PO BID Infection Ref 0 TAB Prednisone (Prednisone) 20 Mg Tab 20 MG PO DAILY Ref 0 TAB Laurie Raymond MD Aug 16, 2016 10:27
--- NOTE | 2016-08-16 10:27 | HHI.DCPOC ---
Discharge Care Plan Diagnosis: (1) Metastatic breast cancer (2) Failure of outpatient treatment (3) Community acquired bacterial pneumonia Goals to Promote Your Health * To prevent worsening of your condition and complications * To maintain your health at the optimal level Directions to Meet Your Goals Take your medications as prescribed Follow your dietary instruction Follow activity as directed Keep your appointments as scheduled Take your immunizations and boosters as scheduled If your symptoms worsen call your PCP, if no PCP go to Urgent Care Center or Emergency Room Smoking is Dangerous to Your Health. Avoid second hand smoke Call the 24-hour hour crisis hotline for domestic abuse at Laurie Raymond MD Aug 16, 2016 10:27
[2016-08-16 12:00] VITALS: BP 114/68; PULSE 104; RESP 20; TEMP 98.3; O2SAT 94
[2016-08-16 13:32] LABS: 5HIAA 24HR UR 9.3 mg/24 h (<=8.0)
== END 2016-08-16 15:48 | disposition home or self-care (01) | DRG 871 ==
LOC: NEPC 07:44 → NEDA 10:11 → N04B 11:48
PROVIDERS: ADMIT Family Medicine; ATTEND Family Medicine
DX: A41.9 Sepsis, unspecified organism (principal); J15.9 Unspecified bacterial pneumonia; C78.01 Secondary malignant neoplasm of right lung; J44.0 Chronic obstructive pulmonary disease with (acute) lower respiratory infection; J44.1 Chronic obstructive pulmonary disease with (acute) exacerbation; C50.919 Malignant neoplasm of unspecified site of unspecified female breast; J45.909 Unspecified asthma, uncomplicated; F41.9 Anxiety disorder, unspecified; F32.9 Major depressive disorder, single episode, unspecified; E03.9 Hypothyroidism, unspecified; K57.90 Diverticulosis of intestine, part unspecified, without perforation or abscess without bleeding; G89.4 Chronic pain syndrome; R73.9 Hyperglycemia, unspecified; T38.0X5A Adverse effect of glucocorticoids and synthetic analogues, initial encounter; G47.00 Insomnia, unspecified; K59.09 Other constipation; Z92.21 Personal history of antineoplastic chemotherapy; Z92.3 Personal history of irradiation; Z87.891 Personal history of nicotine dependence; Z79.891 Long term (current) use of opiate analgesic; Z90.10 Acquired absence of unspecified breast and nipple; Z90.2 Acquired absence of lung [part of]
CPT/HCPCS: 71010; 71260; 80048; 80053; 81001; 82948; 83497; 83605; 83735; 84260; 85025; 85027; 86316; 87040; 87086; 87449; 87804; 93005; 94640; 94664; 94667; 94668; 96365; 96367; 96375; J0692; J1170; J1650; J1815; J2920; J2930; J3370; J7030; J7050; J7512; J7626; Q9967

== ENCOUNTER 2017-05-13 15:43 | Inpatient (IN) | payer OTHER ==
[2017-05-13] VITALS (7 sets, daily range): BP systolic 130–167; BP diastolic 82–100; PULSE 112–122; RESP 24–30; TEMP 98; O2SAT 94–97
[~2017-05-13 15:43] MED LIST changes: +ALBU.5I NEB; -ALBU0.086 NEB; -AMBI10TA PO; -BUDE.5I INH; +BUDE.5I NEB; +LACT PO; +LEVA500T33 PO; -OXYC40TA20 PO; +OXYC60TA8 PO; -POLY119S PO; +PRED10 PO; +PROC10TA PO; -SENN8.6T15 PO; +ZOFR4TAB PO; -ZOFR4TAB3 SL; -[UNRECOGNIZED DRUG - CODE] IV; +[UNRECOGNIZED DRUG - CODE] IV PUSH
[2017-05-13] MEDS ORDERED: methylPREDNISolone SOD SUCC 125 MG/2 ML VIAL IV PUSH ONE (16:45)
[2017-05-13] MEDS ORDERED: SODIUM CHLORIDE 0.9% FLUSH 10 ML FLUSH IVF PRN (16:45)
[2017-05-13] MEDS: RESP: ALBUTEROL 2.5 MG/IPRATROPIUM 0.5 MG NEB (SCH) INH (16:57)
[2017-05-13 17:26] LABS: AUTOMATED NEUTROPHIL # 5.8 TH/MM3 (1.8-7.7); BASOPHIL % 0.5 % (0.0-2.0); HEMATOCRIT 33.3 % (35.0-46.0); HEMOGLOBIN 11.3 GM/DL (11.6-15.3); LYMPH % 3.3 % (9.0-44.0); LYMPHOCYTE # 0.2 TH/MM3 (1.0-4.8); MEAN CORPUSCULAR HEMOGLOBIN 30.2 PG (27.0-34.0); MEAN CORPUSCULAR HGB CONC 33.9 % (32.0-36.0); MEAN PLATELET VOLUME 7.8 FL (7.0-11.0); MONO % 1.7 % (0.0-8.0); MONOCYTE # 0.1 TH/MM3 (0-0.9); NEUT % 94.5 % (16.0-70.0); PLATELET COUNT 238 TH/MM3 (150-450); RED BLOOD COUNT 3.74 MIL/MM3 (4.00-5.30); RED CELL DISTRIBUTION WIDTH 16.3 % (11.6-17.2); WHITE BLOOD COUNT 6.1 TH/MM3 (4.0-11.0)
[2017-05-13 17:32] LABS: PROTHROMBIN TIME - PATIENT 10.6 SEC (9.8-11.6)
--- NOTE | 2017-05-13 17:33 | RADRPT ---
EXAM DATE/TIME: 05/13/2017 17:16 [facility] COMPARISON: CHEST SINGLE AP, August 13, 2016, 20:27. INDICATIONS : Chest pain and shortness for breath for several days. MEDICAL HISTORY : Cardiovascular disease. Carcinoma, breast. SURGICAL HISTORY : Mastectomy, left. Lobectomy, right. ENCOUNTER: Initial ACUITY: 3 days PAIN SCORE: 3/10 LOCATION: Bilateral chest FINDINGS: Right-sided [id number] tip in superior vena cava. Chronic scarring and opacity in the upper right hemithorax relatively stable since August 13, 2016. No new consolidation or effusion. Heart size normal . Previous left mastectomy. CONCLUSIO No acute findings. Stable chronic opacity and scarring upper right hemithorax. No new infiltrate or e ffusion. Dago Pollock MD on May 13, 2017 at 17:29 Board Certified Radiologist. This report was verified electronically.
[2017-05-13] MEDS ORDERED: MORPHINE SULFATE 4 MG/ML INJ IV PUSH ONE ×2 (18:00→18:30)
[2017-05-13 18:04] LABS: ALBUMIN 3.9 GM/DL (3.4-5.0); AST (GOT) 21 U/L (15-37); BICARBONATE 27.9 MEQ/L (21.0-32.0); BLOOD UREA NITROGEN 10 MG/DL (7-18); CALCIUM 8.8 MG/DL (8.5-10.1); CHLORIDE 101 MEQ/L (98-107); CREATININE 0.74 MG/DL (0.50-1.00); GLOMERULAR FILTRATION RATE 79 ML/MIN (>89); GLUCOSE,RANDOM 194 MG/DL (74-106); SODIUM (NA) 138 MEQ/L (136-145)
[2017-05-13 18:05] LABS: ALT (GPT) 27 U/L (10-53)
[2017-05-13 18:09] LABS: ALKALINE PHOSPHATASE 95 U/L (45-117); TOTAL BILIRUBIN ADULT 0.4 MG/DL (0.2-1.0); TOTAL PROTEIN 7.7 GM/DL (6.4-8.2); TROPONIN I LESS THAN 0.02 NG/ML (0.02-0.05)
[2017-05-13] MEDS ORDERED: SODIUM CHLORIDE 0.9% FLUSH 10 ML FLUSH IV FLUSH PRN (19:30)
[2017-05-13] MEDS ORDERED: NALOXONE HCL 0.4 MG/ML AMP IV PUSH PRN (19:30)
[2017-05-13] MEDS ORDERED: IOHEXOL 350 MG/ML 10 ML VIAL (for RAD DIAG) IVCONTRAST ONE (19:30)
--- NOTE | 2017-05-13 19:37 | PD ---
HPI Chief Complaint: Respiratory Distress Time Seen by Provider: 16:25 Travel History International Travel<30 days: No Contact w/Intl Traveler<30days: No Traveled to known affect area: No History of Present Illness HPI Patient is a 62-year-old female who comes in complaining of shortness of breath. 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 She says for the past few days, she has been getting worse. She is is walking around makes her shortness of breath worse. She takes 40 mg of prednisone daily. She denies fever or chills. She is having some right chest wall pain. She also has history of pneumonitis from radiation. She says her last chemo was on Thursday. Severity is mild to moderate. 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) High Cholesterol: No Chemotherapy: Yes Chest Pain: No Congestive Heart Failure: No COPD: No Cerebrovascular Accident: No Diabetes: No Diminished Hearing: No Diverticulitis: Yes Endocrine: No Gastrointestinal Disorders: Yes (diverticulitis) GERD: No Glaucoma: No Genitourinary: No Headaches: Yes Hepatitis: No Hiatal Hernia: No Hypertension: No Immune Disorder: No Implanted Vascular Access Dvce: Yes (PORT RIGHT CHEST) Kidney Stones: No Musculoskeletal: No Neurologic: No Psychiatric: No Reproductive: No Respiratory: Yes (BREAST CA METS TO LUNG; LOBECTOMY R) Immunizations Current: Yes Migraines: Yes Myocardial Infarction: No Radiation Therapy: Yes Renal Failure: No Seizures: No Sickle Cell Disease: No Sleep Apnea: No Thyroid Disease: Yes (HYPOTHYROID) Ulcer: No Tetanus Vaccination: Unknown Influenza Vaccination: No PNEUMOCCOCAL Vaccine (Year): 1 ?: Not Menopausal: Yes Dilation and Curettage (D&C): Yes Past Surgical History Abdominal Surgery: Yes AICD: No Appendectomy: No Arteriovenous Shunt: No Cardiac Surgery: No Cholecystectomy: Yes Ear Surgery: No Endocrine Surgery: No Eye Surgery: No Genitourinary Surgery: No Gynecologic Surgery: Yes (R UPPER lobectomy 2012 mastectomy 2009) Hysterectomy: Yes Insulin Pump: No Joint Replacement: No Mastectomy: Yes (LEFT BREAST) Neurologic Surgery: No Oral Surgery: No Pacemaker: No Thoracic Surgery: Yes (RIGHT LOBECTOMY) Other Surgery: Yes (SINUS SX) Social History Alcohol Use: Yes (RARELY PER PT) Tobacco Use: No Substance Use: No Allergies-Medications (Allergen,Severity, Reaction): Coded Allergies: metronidazole (Unverified Allergy, Severe, Nausea/Vomiting, 05/13/17) eribulin (Unverified Adverse Reaction, Mild, Itching, 05/13/17) Pt denies allergy Uncoded Allergies: Transpore Tape (Allergy, Mild, Rash, 05/14/16) Reported Meds & Prescriptions Reported Meds & Active Scripts Active Prednisone 10 Mg Tab 10 Mg PO DAILY take 30 mg daily for 5 days then 20 mg daily for 5 days then 10 mg daily for 5 days as directed by your Oncologist. Levaquin (Levofloxacin) 500 Mg Tablet 500 Mg PO DAILY Acidophilus/l-Sporogenes (Lactobacillus Acidophilus) 1 Tab Tab 1 Tab PO Q12HR Reported Dilaudid 4 mg/ml Syringe (Hydromorphone HCl/Pf) 4 Mg/1 Ml Syringe 4 Mg IV PUSH Q4-6H Pulmicort Respules (Budesonide) 0.5 Mg/2 Ml Neb 0.5 Mg NEB Q12HR NEB Albuterol Neb (Albuterol Sulfate) 2.5 Mg/0.5 Ml Neb 2.5 Mg NEB Q4HR NEB PRN Note: The Albuterol Sulfate Inhalation Solution is concentrated and must be diluted. Read complete instructions carefully before using. Prochlorperazine Maleate 10 Mg Tab 10 Mg PO Q4H PRN Zofran (Ondansetron HCl) 4 Mg Tab 4 Mg PO Q6HR PRN Oxycontin (Oxycodone HCl) 60 Mg Tab 60 Mg PO Q12HR Oxycodone (Oxycodone HCl) 15 Mg Tab 15 Mg PO Q6H PRN Zolpidem (Zolpidem Tartrate) 10 Mg Tab 10 Mg PO HS PRN Synthroid (Levothyroxine Sodium) 200 Mcg Tab 200 Mcg PO DAILY Review of Systems Except as stated in HPI: all other systems reviewed are Neg General / Constitutional: No: Fever, Chills HENT: No: Headaches, Lightheadedness Cardiovascular: Positive: Chest Pain or Discomfort Respiratory: Positive: Shortness of Breath Gastrointestinal: No: Nausea, Vomiting Musculoskeletal: No: Myalgias, Edema Skin: No Rash, No Change in Pigmentation Neurologic: No: Weakness, Dizziness Physical Exam Narrative GENERAL: Awake and alert, in no acute distress. SKIN: Focused skin assessment warm/dry. HEAD: Atraumatic. Normocephalic. EYES: Pupils equal and round. No scleral icterus. ENT: Mucous membranes pink and moist. NECK: Trachea midline. No JVD. CARDIOVASCULAR: Tachycardia. No murmur appreciated. RESPIRATORY: No accessory muscle use. Diffuse wheezing. breath sounds equal bilaterally. GASTROINTESTINAL: Abdomen soft, non-tender, nondistended. Hepatic and splenic margins not palpable. MUSCULOSKELETAL: No obvious deformities. No clubbing. No cyanosis. No edema. NEUROLOGICAL: Awake and alert. No obvious cranial nerve deficits. Motor grossly within normal limits. Normal speech. PSYCHIATRIC: Appropriate mood and affect; insight and judgment normal. Data Data Last Documented VS Vital Signs Date Time Temp Pulse Resp B/P (MAP) Pulse Ox O2 Delivery O2 Flow Rate FiO2 05/13/17 17:19 116 25 141/87 (105) 96 Nasal Cannula 3.00 05/13/17 16:07 98.0 Orders Orders Electrocardiogram (05/13/17 ) Complete Blood Count With Diff (05/13/17 16:40) Comprehensive Metabolic Panel (05/13/17 16:40) Act Partial Throm Time (Ptt) (05/13/17 16:40) Prothrombin Time / Inr (Pt) (05/13/17 16:40) Troponin I (05/13/17 16:40) Iv Access Insert/Monitor (05/13/17 16:40) Ecg Monitoring (05/13/17 16:40) Oximetry (05/13/17 16:40) Oxygen Administration (05/13/17 16:40) Chest, Single Ap (05/13/17 16:40) Sodium Chloride 0.9% Flush (Ns Flush) (05/13/17 16:45) Methylprednisolone So Succ Inj (Solumedr (05/13/17 16:45) Albuterol-Ipratropium Neb (Duoneb Neb) (05/13/17 16:45) Morphine Inj (Morphine Inj) (05/13/17 18:00) Morphine Inj (Morphine Inj) (05/13/17 18:30) Admit Order (Ed Use Only) (05/13/17 ) Place In Observation (05/13/17 ) Vital Signs (Adult) Q4H (05/13/17 19:30) Activity Oob With Assistance (05/13/17 19:30) Air Compressor Mechanic / Telemetry .CONTINUOUS (05/13/17 19:30) Diet Heart Healthy (05/14/17 Breakfast) Sodium Chloride 0.9% Flush (Ns Flush) (05/13/17 19:30) Sodium Chloride 0.9% Flush (Ns Flush) (05/13/17 21:00) Basic Metabolic Panel (Bmp) (05/14/17 06:00) Complete Blood Count With Diff (05/14/17 06:00) Resp Oxygen Raghu C Titrat 1-4 L (05/13/17 ) Pt Request For Service (05/13/17 19:30) Case Management Consult (05/13/17 19:30) Naloxone Inj (Narcan Inj) (05/13/17 19:30) Albuterol-Ipratropium Neb (Duoneb Neb) (05/13/17 19:30) Pantoprazole (Protonix) (05/14/17 09:00) Methylprednisolone So Succ Inj (Solumedr (05/14/17 00:00) Labs Laboratory Tests Test 05/13/17 16:55 White Blood Count 6.1 TH/MM3 Red Blood Count 3.74 MIL/MM3 Hemoglobin 11.3 GM/DL Hematocrit 33.3 % Mean Corpuscular Volume 89.0 FL Mean Corpuscular Hemoglobin 30.2 PG Mean Corpuscular Hemoglobin Concent 33.9 % Red Cell Distribution Width 16.3 % Platelet Count 238 TH/MM3 Mean Platelet Volume 7.8 FL Neutrophils (%) (Auto) 94.5 % Lymphocytes (%) (Auto) 3.3 % Monocytes (%) (Auto) 1.7 % Eosinophils (%) (Auto) 0.0 % Basophils (%) (Auto) 0.5 % Neutrophils # (Auto) 5.8 TH/MM3 Lymphocytes # (Auto) 0.2 TH/MM3 Monocytes # (Auto) 0.1 TH/MM3 Eosinophils # (Auto) 0.0 TH/MM3 Basophils # (Auto) 0.0 TH/MM3 CBC Comment DIFF FINAL Differential Comment Prothrombin Time 10.6 SEC Prothromb Time International Ratio 1.0 RATIO Activated Partial Thromboplast Time 23.9 SEC Blood Urea Nitrogen 10 MG/DL Creatinine 0.74 MG/DL Random Glucose 194 MG/DL Total Protein 7.7 GM/DL Albumin 3.9 GM/DL Calcium Level 8.8 MG/DL Alkaline Phosphatase 95 U/L Aspartate Amino Transf (AST/SGOT) 21 U/L Alanine Aminotransferase (ALT/SGPT) 27 U/L Total Bilirubin 0.4 MG/DL Sodium Level 138 MEQ/L Potassium Level 3.7 MEQ/L Chloride Level 101 MEQ/L Carbon Dioxide Level 27.9 MEQ/L Anion Gap 9 MEQ/L Estimat Glomerular Filtration Rate 79 ML/MIN Troponin I LESS THAN 0.02 NG/ML MDM Medical Decision Making Medical Screen Exam Complete: Yes Emergency Medical Condition: Yes Medical Record Reviewed: Yes Interpretation(s) ECG shows sinus tachycardia at 119, no ST elevation or depression, normal intervals Differential Diagnosis COPD exacerbation versus pneumonia versus bronchitis versus pneumonitis Narrative Course Patient is a 62-year-old female who comes in complaining of shortness of breath. Exam shows diffuse wheezing and tachycardia. IV established, labs sent. Labs show no acute abnormalities. Chest x-ray is unchanged from previous. She is given 3 DuoNeb's and Solu-Medrol. She also received 1 albuterol treatment, without relief of her symptoms. She still wheezing. She will be placed in observation for further management. Diagnosis Primary Impression: COPD exacerbation Admitting Information Admitting Physician Requests: Observation Dunia Davis MD May 13, 2017 19:37
--- NOTE | 2017-05-13 19:50 | HHI.HP ---
[facility] Service [facility] Primary Care Physician Hussein Hansen MD Admission Diagnosis COPD exacerbation Diagnoses: Travel History International Travel<30 Days: No Contact w/Intl Traveler <30 Da: No Traveled to Known Affected Are: No History of Present Illness History from patient, ER physician, medication, and review of medical records. Patient reported that she was having trouble breathing for the past few days. She reports she was coughing and wheezing a lot. Denies fever. Denies any copious sputum production. However she states that she does cough up once in a while. No specific colors except whitish. On review of system, patient reports of right and left rib area pains. She states this is chronic. She reports she has chronic pain because of mastectomy. She follows with a pain management doctor who specializes mostly on oncology patients in [place]. She states that she would need pain meds here. She states she usually takes oxycodone 60 mg extended release 3 times daily with oxycodone immediate release 15 mg 4 tablets every 4-6 hours as needed at home. Patient is explained that these are high doses and that in light of her hypoxia and respiratory issues, I will not be giving high doses in hospital acute situation. She is very pleasant and agreeable to this. Patient denies any calf pains or cuff asymmetry. Denies any long distance travels in the past few months. Denies any blood in her stool or in her urine. When asked about sick contacts, she stated that her have been coughing a lot. He is not on antibiotics. Patient reports she has a lot of lung anxious chronically because she suffers from radiation pneumonitis. She has history of breast cancer with metastasis to the lung for which she received radiation treatment and lobectomy. At the time of my exam, despite treatment with multiple rounds of nebulizers in the ER, patient still is saturating at 88-90% on room air during my interview. Review of Systems Except as stated in HPI: all other systems reviewed are Neg Past Family Social History Past Medical History radiation pneumonitis right UE - s/p thrombectomy by IR a couple of years ago- took anticoagulation after that few months hypothyroidism breast cancer left - mets to right lung in 2010- on chemotherapy last dose was thursday; radiation treatment in 2013 not on oxygen at home Past Surgical History hysterectomy mastectomy left lobectomy knee sx meniscus sinus sx rupture ectopic preg with laparotomy cholecystectomy Allergies: Coded Allergies: metronidazole (Unverified Allergy, Severe, Nausea/Vomiting, 05/13/17) eribulin (Unverified Adverse Reaction, Mild, Itching, 05/13/17) Pt denies allergy Uncoded Allergies: Transpore Tape (Allergy, Mild, Rash, 05/14/16) Family History none that she knows of, most of old age Social History never smoked no etoh abuse no drugs Physical Exam Vital Signs Vital Signs Date Time Temp Pulse Resp B/P (MAP) Pulse Ox O2 Delivery O2 Flow Rate FiO2 05/13/17 17:19 116 25 141/87 (105) 96 Nasal Cannula 3.00 05/13/17 16:45 97 Nasal Cannula 2.00 05/13/17 16:30 97 Nasal Cannula 2.00 05/13/17 16:15 Nasal Cannula 3.00 05/13/17 16:07 98.0 122 30 149/82 (104) 97 Nasal Cannula 2.00 05/13/17 16:07 122 30 149/82 (104) 97 Nasal Cannula 05/13/17 16:07 98.0 122 24 130/91 (104) 96 05/13/17 16:07 97 Nasal Cannula 3.00 05/13/17 16:07 Nasal Cannula 2.00 Physical Exam GENERAL: This is a well-nourished, well-developed patient, in no apparent distress. SKIN: No rashes, ecchymoses or lesions. Cool and dry. HEAD: Atraumatic. Normocephalic. No temporal or scalp tenderness. EYES: . No scleral icterus. No injection or drainage. ENT: Nose without bleeding, purulent drainage or septal hematoma. Airway patent. NECK: Trachea midline. No JVD Supple, nontender, no meningeal signs. CARDIOVASCULAR: Regular rate and rhythm without murmurs, gallops, or rubs. RESPIRATORY:bilateral expiratory wheezing GASTROINTESTINAL: Abdomen soft, non-tender, nondistended. No guarding. MUSCULOSKELETAL: Extremities without clubbing, cyanosis, or edema. No calf tenderness. NEUROLOGICAL: Awake and alert. Motor and sensory grossly within normal limits. Normal speech. Laboratory Laboratory Tests Test 05/13/17 16:55 White Blood Count 6.1 Red Blood Count 3.74 Hemoglobin 11.3 Hematocrit 33.3 Mean Corpuscular Volume 89.0 Mean Corpuscular Hemoglobin 30.2 Mean Corpuscular Hemoglobin Concent 33.9 Red Cell Distribution Width 16.3 Platelet Count 238 Mean Platelet Volume 7.8 Neutrophils (%) (Auto) 94.5 Lymphocytes (%) (Auto) 3.3 Monocytes (%) (Auto) 1.7 Eosinophils (%) (Auto) 0.0 Basophils (%) (Auto) 0.5 Neutrophils # (Auto) 5.8 Lymphocytes # (Auto) 0.2 Monocytes # (Auto) 0.1 Eosinophils # (Auto) 0.0 Basophils # (Auto) 0.0 CBC Comment DIFF FINAL Differential Comment Prothrombin Time 10.6 Prothromb Time International Ratio 1.0 Activated Partial Thromboplast Time 23.9 Blood Urea Nitrogen 10 Creatinine 0.74 Random Glucose 194 Total Protein 7.7 Albumin 3.9 Calcium Level 8.8 Alkaline Phosphatase 95 Aspartate Amino Transf (AST/SGOT) 21 Alanine Aminotransferase (ALT/SGPT) 27 Total Bilirubin 0.4 Sodium Level 138 Potassium Level 3.7 Chloride Level 101 Carbon Dioxide Level 27.9 Anion Gap 9 Estimat Glomerular Filtration Rate 79 Troponin I LESS THAN 0.02 Result Diagram: 05/13/175 05/13/171654 Imaging Chest x-ray. Personally reviewed. No evidence of acute infiltrate/pneumothorax /pulmonary edema. Caprini VTE Risk Assessment Caprini VTE Risk Assessment: Mod/High Risk (score >= 2) Caprini Risk Assessment Model Point Value = 1 Point Value = 2 Point Value = 3 Point Value = 5 Age 41-60 Minor surgery BMI > 25 kg/m2 Swollen legs Varicose veins or History of unexplained or recurrent spontaneous Oral contraceptives or hormone replacement Sepsis (< 1 month) Serious lung disease, including pneumonia (< 1 month) Abnormal pulmonary function Acute myocardial infarction Congestive heart failure (< 1 month) History of inflammatory bowel disease Medical patient at bed rest Age 61-74 Arthroscopic surgery Major open surgery (> 45 min) Laparoscopic surgery (> 45 min) Malignancy Confined to bed (> 72 hours) Immobilizing plaster cast Central venous access Age >= 75 History of VTE Family history of VTE Factor V Leiden Prothrombin [id number] Lupus anticoagulant Anticardiolipin antibodies Elevated serum homocysteine Heparin-induced thrombocytopenia Other congenital or acquired thrombophilia Stroke (< 1 month) Elective arthroplasty Hip, pelvis, or leg fracture Acute spinal cord injury (< 1 month) Prophylaxis Regimen Total Risk Factor Score Risk Level Prophylaxis Regimen 0-1 Low Early ambulation 2 Moderate Order ONE of the following: *Sequential Compression Device (SCD) *Heparin 5000 units SQ BID 3-4 Higher Order ONE of the following medications: *Heparin 5000 units SQ TID *Enoxaparin/Lovenox 40 mg SQ daily (WT < 150 kg, CrCl > 30 mL/min) *Enoxaparin/Lovenox 30 mg SQ daily (WT < 150 kg, CrCl > 10-29 mL/min) *Enoxaparin/Lovenox 30 mg SQ BID (WT < 150 kg, CrCl > 30 mL/min) AND/OR *Sequential Compression Device (SCD) 5 or more Highest Order ONE of the following medications: *Heparin 5000 units SQ TID (Preferred with Epidurals) *Enoxaparin/Lovenox 40 mg SQ daily (WT < 150 kg, CrCl > 30 mL/min) *Enoxaparin/Lovenox 30 mg SQ daily (WT < 150 kg, CrCl > 10-29 mL/min) *Enoxaparin/Lovenox 30 mg SQ BID (WT < 150 kg, CrCl > 30 mL/min) AND *Sequential Compression Device (SCD) Assessment and Plan Assessment and Plan Impression: Acute exacerbation of radiation penumonitis symptoms hypoxia in cancer pt with prior hx of dvt - possible underlying pulmonary embolism. Patient is NOT on home oxygen. Possible early pneumonia. Patient has tactile fever on examination. She has significant wheezing, cough, hypoxia. Last chemo was just on Thursday. Chronic pain History of radiation pneumonitis History of right upper extremity DVT. Status post thrombolysis by IR a few years ago. Hypothyroidism Left breast cancer with metastases to the right lung in 2010. Status post mastectomy. Status post radiation treatment in 2012. Currently on chemotherapy with last dose on Thursday. Plan: Oxygen supplementation. Resume nebulizers as needed. Short course of steroids. CT pulmonary angiogram to rule out pulmonary embolism. In light of the fact that patient has tactile fever, cough, wheezing, hypoxia, recent chemotherapy, I am inclined to treat her as early pneumonia in an immunocompromised patient. Start patient on levofloxacin. Resume her home meds. Pain management with oxycodone 60 mg extended release every 12 hours, oxycodone 15 mg immediate release every 6 hours as needed for pain. DVT prophylaxis with Lovenox. Will follow CT results. GI prophylaxis on pantoprazole. Discussed Condition With patient, ER , nursing staff Nani Chisholm MD May 13, 2017 19:50
[2017-05-13] MEDS ORDERED: ONDANSETRON ODT 4 MG TAB PO PRN (20:00)
--- NOTE | 2017-05-13 20:36 | RADRPT ---
EXAM DATE/TIME: 05/13/2017 20:14 [place] COMPARISON: CT PULMONARY ANGIOGRAM, February 05, 2015, 16:40. INDICATIONS : Shortness of breath IV CONTRAST: 65 cc Omnipaque 350 (iohexol) IV RADIATION DOSE: 15.51 CTDIvol (mGy) MEDICAL HISTORY : Carcinoma, breast. Anemia lung mets SURGICAL HISTORY : Hysterectomy. Lobectomy.Mastectomy ENCOUNTER: Initial ACUITY: 1 day PAIN SCALE: 0/10 LOCATION: chest TECHNIQUE: Volumetric scanning of the chest was performed using a pulmonary embolism protocol MIP images were re constructed. Using automated exposure control and adjustment of the mA and/or kV according to patien t size, radiation dose was kept as low as reasonably achievable to obtain optimal diagnostic quality images. DICOM format image data is available electronically for review and comparison. Follow-up recommendations for detected pulmonary nodules are based at a minimum on nodule size and pa tient risk factors according to Fleischner Society Guidelines. FINDINGS: PULMONARY ARTERIES: No filling defects are seen in the pulmonary arteries through the segmental level. LUNGS: Surgical changes with scarring, chronic consolidation and volume loss again noted on the right. No pe rceptible recurrent or residual mass. These findings are very similar to before. The left lung is charlie ar. PLEURAE: There is no pleural thickening or pleural effusion. MEDIASTINUM: Right upper extremity was injected for the purposes of the study. Numerous collateral vessels are see n. The features are typical of a previous thrombosis of the upper SVC with substantial partial recana lization and collateral vessel formation. A right subclavian [id number] catheter is again noted, t ip in the lower SVC. No acute vessel thrombosis is demonstrated. MUSCULOSKELETAL: No acute bony abnormality demonstrated. MISCELLANEOUS: The visualized upper abdominal organs demonstrate no acute abnormality. CONCLUSION: 1. No pulmonary embolus. 2. 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 No acute thrombosis/occlusion demonstrated. 3. Surgical changes with chronic scarring, consolidation and volume loss again noted on the right. 4. Right subclavian [id number] catheter again noted, tip near the atriocaval junction. Corey Loomis MD on May 13, 2017 at 20:26 Board Certified Radiologist. This report was verified electronically.
[2017-05-13] MEDS ORDERED: LEVOFLOXACIN 500 MG TAB PO ONE (20:45)
[2017-05-13] MEDS ORDERED: ONDANSETRON HCL 4 MG/2 ML VIAL IV PUSH PRN (20:45)
[2017-05-13] MEDS: RESP: BUDESONIDE 0.5 MG/2 ML NEB NEB SCH (22:25)
[2017-05-13] MEDS: LACTOBACILLUS ACIDOPHILUS TAB PO SCH (22:49)
[2017-05-13] MEDS: SODIUM CHLORIDE 0.9% FLUSH 10 ML FLUSH IV FLUSH SCH (22:49)
[2017-05-13] MEDS: oxyCODONE HCL 20 MG CONTROLLED RELEASE TAB PO SCH (22:51)
[2017-05-14] VITALS (10 sets, daily range): BP systolic 110–156; BP diastolic 68–93; PULSE 96–119; RESP 18–20; TEMP 97.6–98.1; O2SAT 93–99
[2017-05-14] MEDS: RESP: ALBUTEROL 2.5 MG/IPRATROPIUM 0.5 MG NEB (PRN) NEB ×4 (00:06→22:27)
[2017-05-14] MEDS: ZOLPIDEM TARTRATE 10 MG TAB PO PRN (00:28)
[2017-05-14] MEDS: methylPREDNISolone SOD SUCC 40 MG/1 ML VIAL IV PUSH SCH ×4 (00:28→19:39)
[2017-05-14 05:55] LABS: AUTOMATED NEUTROPHIL # 2.4 TH/MM3 (1.8-7.7); BASOPHIL % 0.2 % (0.0-2.0); EOSINOPHIL % 0.1 % (0.0-4.0); HEMATOCRIT 29.8 % (35.0-46.0); HEMOGLOBIN 10.3 GM/DL (11.6-15.3); LYMPH % 7.5 % (9.0-44.0); LYMPHOCYTE # 0.2 TH/MM3 (1.0-4.8); MEAN CELL VOLUME 87.7 FL (80.0-100.0); MEAN CORPUSCULAR HEMOGLOBIN 30.3 PG (27.0-34.0); MEAN CORPUSCULAR HGB CONC 34.6 % (32.0-36.0); MEAN PLATELET VOLUME 7.9 FL (7.0-11.0); MONO % 2.7 % (0.0-8.0); MONOCYTE # 0.1 TH/MM3 (0-0.9); NEUT % 89.5 % (16.0-70.0); PLATELET COUNT 221 TH/MM3 (150-450); WHITE BLOOD COUNT 2.7 TH/MM3 (4.0-11.0)
[2017-05-14 06:23] LABS: BICARBONATE 29.8 MEQ/L (21.0-32.0); CREATININE 0.69 MG/DL (0.50-1.00)
[2017-05-14] MEDS: LEVOTHYROXINE SODIUM 200 MCG TAB PO SCH (06:27)
[2017-05-14] MEDS: RESP: BUDESONIDE 0.5 MG/2 ML NEB NEB SCH ×2 (08:00→21:07)
--- NOTE | 2017-05-14 09:58 | HHI.PR ---
Subjective Remarks The patient is in bed she appears in some distress due to shortness of breath. Says she went to a bedside commode and now she feels short of breath and wheezing. She has received nebulizers. Number much cough. Feels very tired. No nausea vomiting no diarrhea or constipation. She follows Dr. Arellano pulmonology as outpatient. Will consult Objective Vitals Vital Signs Date Time Temp Pulse Resp B/P (MAP) Pulse Ox O2 Delivery O2 Flow Rate FiO2 05/14/17 08:01 99 Nasal Cannula 2.00 05/14/17 07:57 97.7 99 18 125/93 (104) 96 05/14/17 04:10 97.9 108 20 116/68 (84) 93 05/14/17 00:33 98.1 116 20 135/82 (99) 97 05/13/17 22:34 112 05/13/17 22:24 94 Nasal Cannula 05/13/17 20:25 05/13/17 20:03 122 17 95 Room Air 05/13/17 20:02 122 25 167/100 (122) 95 Nasal Cannula 3.00 05/13/17 17:19 116 25 141/87 (105) 96 Nasal Cannula 3.00 05/13/17 16:45 97 Nasal Cannula 2.00 05/13/17 16:30 97 Nasal Cannula 2.00 05/13/17 16:15 Nasal Cannula 3.00 05/13/17 16:07 98.0 122 30 149/82 (104) 97 Nasal Cannula 2.00 05/13/17 16:07 122 30 149/82 (104) 97 Nasal Cannula 05/13/17 16:07 98.0 122 24 130/91 (104) 96 05/13/17 16:07 97 Nasal Cannula 3.00 05/13/17 16:07 Nasal Cannula 2.00 Result Diagram: 05/14/17 0525 05/14/17 [address] Angiography 05/13/17 0000 Signed Impressions: Service Date/Time: Saturday, May 13, 2017 20:14 - CONCLUSION: 1. No pulmonary embolus. 2. 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 No acute thrombosis/occlusion demonstrated. 3. Surgical changes with chronic scarring, consolidation and volume loss again noted on the right. 4. Right subclavian Citmzf-f-Wcbj catheter again noted, tip near the atriocaval junction. Corey Loomis MD Objective Remarks GENERAL: Pleasant well-nourished, well-developed female patient, in some distress due to shortness of breath NECK: Trachea midline. No JVD Supple, nontender, no meningeal signs. CARDIOVASCULAR: Regular rate and rhythm without murmurs, gallops, or rubs. RESPIRATORY: Shortness of breath, bilateral expiratory wheezing GASTROINTESTINAL: Abdomen soft, non-tender, nondistended. No guarding. MUSCULOSKELETAL: Extremities without clubbing, cyanosis, or edema. No calf tenderness. NEUROLOGICAL: Awake and alert. Motor and sensory grossly within normal limits. Normal speech. A/P Assessment and Plan Acute exacerbation of radiation pneumonitis symptoms Hypoxia in cancer pt with prior hx of dvt - possible underlying pulmonary embolism. Patient is NOT on home oxygen. Possible early pneumonia. Patient has tactile fever on examination. She has significant wheezing, cough, hypoxia. Last chemo was just on Thursday. Chronic pain History of radiation pneumonitis History of right upper extremity DVT. Status post thrombolysis by IR a few years ago. Hypothyroidism Left breast cancer with metastases to the right lung in 2010. Status post mastectomy. Status post radiation treatment in 2012. Currently on chemotherapy with last dose on Thursday. Oxygen supplementation, keep O2 sat > 92%. Resume nebulizers as needed. Short course of steroids. CT pulmonary angiogram reviewed and no pulmonary embolism. No acute changes. In light of the fact that patient has tactile fever, cough, wheezing, hypoxia, recent chemotherapy Treat her as early pneumonia in an immunocompromised patient. Start patient on levofloxacin IV. Consult pulmonology Dr. Lee Incentive spirometry Albuterol inhaler as needed Monitor oxygen saturation, continue oxygen supplement by nasal cannula Resume her home meds as appropriate. Monitor Pain management with oxycodone 60 mg extended release every 12 hours, oxycodone 15 mg immediate release every 6 hours as needed for pain. DVT prophylaxis with Lovenox. GI prophylaxis on pantoprazole. Discussed Condition With patient, nurse Discharge when improved and cleared by therapeutic consultant Chary Mckeon MD May 14, 2017 09:58
[2017-05-14] MEDS: oxyCODONE HCL 20 MG CONTROLLED RELEASE TAB PO SCH ×2 (12:24→20:13)
[2017-05-14] MEDS: LEVOFLOXACIN 500 MG TAB PO SCH (12:25)
[2017-05-14] MEDS: PANTOPRAZOLE SOD 40 MG DELAYED RELEASE TAB PO SCH (12:25)
[2017-05-14] MEDS: SODIUM CHLORIDE 0.9% FLUSH 10 ML FLUSH IV FLUSH SCH ×2 (12:26→20:13)
[2017-05-14] MEDS: LACTOBACILLUS ACIDOPHILUS TAB PO SCH ×2 (12:26→20:13)
[2017-05-14] MEDS ORDERED: ALBUTEROL SULFATE 90 MCG/ACT HFA 8 GM INHALER INH PRN (13:00)
--- NOTE | 2017-05-14 14:08 | EKG ---
Date Performed: 05/13/2017 Time Performed: 17:31:35 PTAGE: 62 years EKG: SINUS TACHYCARDIA RIGHT ATRIAL ENLARGEMENT POSSIBLE INFERIOR MYOCARDIAL INFARCTION ABNORMAL ECG Since the PREVIOUS TRACING , no significant change noted PREVIOUS TRACIN08/11/2016 08.49 DOCTOR: Muriel Villareal Interpretating Date/Time 05/14/2017 13:58:05
[2017-05-14] MEDS ORDERED: FUROSEMIDE 20 MG/2 ML VIAL IV PUSH ONE ×2 (22:30→23:45)
[2017-05-14] MEDS ORDERED: DIAZ10 PO (22:31)
[2017-05-14] MEDS ORDERED: DIAZEPAM 10 MG TAB PO ONE (23:45)
[2017-05-15] VITALS (16 sets, daily range): BP systolic 113–151; BP diastolic 61–92; PULSE 101–118; RESP 16–20; TEMP 97.8–98.4; O2SAT 90–99
[2017-05-15] MEDS: methylPREDNISolone SOD SUCC 40 MG/1 ML VIAL IV PUSH SCH ×4 (00:01→17:43)
[2017-05-15] MEDS: ZOLPIDEM TARTRATE 10 MG TAB PO PRN (00:58)
[2017-05-15] MEDS: LEVOTHYROXINE SODIUM 200 MCG TAB PO SCH (05:37)
[2017-05-15] MEDS: RESP: BUDESONIDE 0.5 MG/2 ML NEB NEB SCH ×2 (08:27→20:23)
[2017-05-15] MEDS: RESP: ALBUTEROL 2.5 MG/IPRATROPIUM 0.5 MG NEB (PRN) NEB ×3 (08:27→20:24)
[2017-05-15] MEDS: IBUPROFEN 400 MG TAB PO PRN (08:29)
--- NOTE | 2017-05-15 09:24 | HHI.PR ---
Subjective Remarks 62 YOWF with H/O ca breast, Radiation Pneumonitis, sob Had episode of worsening of sob and anxiety Took Diazepam and Aerosol nebs Better now at BS. Objective Vital Signs Vital Signs Date Time Temp Pulse Resp B/P (MAP) Pulse Ox O2 Delivery O2 Flow Rate FiO2 05/15/17 08:29 97 Nasal Cannula 3.00 05/15/17 07:52 109 05/15/17 07:51 98.2 110 20 135/82 (99) 90 05/15/17 05:42 98.1 108 18 113/61 (78) 05/15/17 02:36 98.0 109 16 123/74 (90) 96 05/15/17 02:12 113 05/15/17 00:28 98.0 118 16 151/78 (102) 99 05/14/17 22:49 119 18 156/79 (104) 97 05/14/17 21:09 94 Nasal Cannula 2.00 05/14/17 20:22 98.0 111 18 129/79 (96) 94 05/14/17 16:00 97.8 117 20 110/69 (83) 96 05/14/17 13:24 20 05/14/17 11:33 97.6 110 20 128/74 (92) 97 I/O 05/14/17 05/14/17 05/14/17 05/15/17 05/15/17 05/15/17 07:00 15:00 23:00 07:00 15:00 23:00 Output Total 800 ml 500 ml Balance -800 ml -500 ml Output Urine Total 800 ml 500 ml # Voids 2 Result Diagram: 05/14/1725 05/14/17 0525 Objective Remarks GENERAL: MBMN WF, mild sob, anxious SKIN: Warm and dry. HEAD: Normocephalic. EYES: No scleral icterus. No injection or drainage. NECK: Supple, trachea midline. No JVD or lymphadenopathy. CARDIOVASCULAR: Regular rate and rhythm without murmurs, gallops, or rubs. RESPIRATORY: Breath sounds equal bilaterally. No accessory muscle use. GASTROINTESTINAL: Abdomen soft, non-tender, nondistended. MUSCULOSKELETAL: No cyanosis, or edema. BACK: Nontender without obvious deformity. No CVA tenderness. A/P Assessment and Plan Dysnoea Radiation Pneumonitis Anxiety Ch Pain H/O Ca breast PLAN: IV Solumedrol Cont Levaquin Aerosol nebs Diazepam for anxiety DW pt and her . Jose Lee MD May 15, 2017 09:24
[2017-05-15] MEDS ORDERED: BIOM30MI (09:50)
[2017-05-15] MEDS ORDERED: LANCETS1 MI1 (09:50)
[2017-05-15] MEDS ORDERED: GLUCTES12 (09:50)
[2017-05-15] MEDS ORDERED: METF500T PO (09:50)
[2017-05-15] MEDS ORDERED: GLUCKIT15 (09:50)
--- NOTE | 2017-05-15 09:50 | MB ---
cc: Jose Lee MD DATE OF CONSULT: 05/14/2017 REQUESTING PHYSICIAN: Dr. Mejía REASON FOR CONSULTATION: Evaluate shortness of breath. HISTORY OF PRESENT ILLNESS: Ms. Beavers is a pleasant 62-year-old female who is known to me from the office. She has history of CA of the breast radiation, treatment radiation, pneumonitis. The patient does not use any oxygen at home. She has been having increasing shortness of breath for the last 3-4 days. She has cough, mostly dry. Denies any fever, chills. She has no night sweats or complaints of chest discomfort. She has chronic pain and has been maintained on chronic pain medications. The patient was in the hospital. She had a CTA of the chest done. It does not show any pulmonary embolism. It shows finding consistent with previous occlusion of the superior vena cava and parenchymal changes in the right lung. Her CBC showed WBC count 2.7, hemoglobin 10.3, hematocrit 29.8, MCV 87, platelet count 221. Sodium 130, potassium 4.1, chloride 101, CO2 29, BUN 14, creatinine 0.69. INR is 1.0. PAST MEDICAL HISTORY: Significant for history of CA of the breast, she had mastectomy, radiation treatment and now she is on chemotherapy. History of hypothyroidism, radiation pneumonitis. PAST SURGICAL HISTORY: Hysterectomy, mastectomy, ruptured ectopic and cholecystectomy. MEDICATIONS: She is currently taking Albuterol nebulizer treatment, Protonix 40 milligrams, Levaquin 500 mg a day, levothyroxine 200 micrograms, Solu-Medrol 40 mg every 6 hours, Ambien 10 milligrams at night and Pulmicort Respules every 12 hours, oxycodone for pain. ALLERGIES: SHE IS ALLERGIC TO TRANSPORE TAPE, ERIBULIN, METRONIDAZOLE. SOCIAL HISTORY: She is . No history of smoking or alcohol use. FAMILY HISTORY: Noncontributory. REVIEW OF SYSTEMS: She feels weak and tired. Denies any weight loss. No hemoptysis. No DVT or pulmonary embolism. PHYSICAL EXAMINATION: GENERAL: MBMN female, anxious, mild short of breath. VITAL SIGNS: Blood pressure 110/69, heart rate 117, respirations 20, temperature 97.8. HEENT: Pupils are equal and reactive to light. Oral mucosa and nasal mucosa normal. NECK: Supple. JVD not raised. CHEST: Equal air entry bilaterally. She has few rhonchi. CARDIOVASCULAR: S1, S2 normal. ABDOMEN: Soft, nondistended. Bowel sounds are present. EXTREMITIES: No edema. IMPRESSION: 1. Radiation pneumonitis, with worsening shortness of breath, no pulmonary embolism. 2. Mild bronchospasm. 3. Bronchitis. 4. Carcinoma of the breast. 5. Anxiety disorder. 6. Chronic pain. PLAN: I discussed with the patient and her to supplement her oxygen, wean her from oxygen as she tolerates. Encouraged her to ambulate. Continue steroid, antibiotics and aerosol treatment. Further treatment pending the course in the hospital. Thank you, Dr. Mejía, for this consult. MD XAVIER Carbone/OJSE , 07:21 PM , 08:00 PM OCTAVIO
--- NOTE | 2017-05-15 09:51 | HHI.PR ---
Subjective Remarks In bed, appears acute distress at this time. Still requiring oxygen. Not much wheezing today. He was able to ambulate a little bit with physical therapy yesterday. No nausea or vomiting no diarrhea or constipation. No fever or chills. Still feels very weak and with shortness of breath. Denies chest pain or palpitations. No lightheadedness. Objective Vitals Vital Signs Date Time Temp Pulse Resp B/P (MAP) Pulse Ox O2 Delivery O2 Flow Rate FiO2 05/15/17 08:29 97 Nasal Cannula 3.00 05/15/17 07:52 109 05/15/17 07:51 98.2 110 20 135/82 (99) 90 05/15/17 05:42 98.1 108 18 113/61 (78) 05/15/17 02:36 98.0 109 16 123/74 (90) 96 05/15/17 02:12 113 05/15/17 00:28 98.0 118 16 151/78 (102) 99 05/14/17 22:49 119 18 156/79 (104) 97 05/14/17 21:09 94 Nasal Cannula 2.00 05/14/17 20:22 98.0 111 18 129/79 (96) 94 05/14/17 16:00 97.8 117 20 110/69 (83) 96 05/14/17 13:24 20 05/14/17 11:33 97.6 110 20 128/74 (92) 97 I/O 05/14/17 05/14/17 05/14/17 05/15/17 05/15/17 05/15/17 07:00 15:00 23:00 07:00 15:00 23:00 Output Total 800 ml 500 ml Balance -800 ml -500 ml Output Urine Total 800 ml 500 ml # Voids 2 Result Diagram: 05/14/17 0525 05/14/17 [address] Angiography 05/13/17 0000 Signed Impressions: Service Date/Time: Saturday, May 13, 2017 20:14 - CONCLUSION: 1. No pulmonary embolus. 2. 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 No acute thrombosis/occlusion demonstrated. 3. Surgical changes with chronic scarring, consolidation and volume loss again noted on the right. 4. Right subclavian Gebejf-g-Bvak catheter again noted, tip near the atriocaval junction. Corey Loomis MD Objective Remarks GENERAL: Pleasant well-nourished, well-developed female patient, in some distress due to shortness of breath NECK: Trachea midline. No JVD Supple, nontender, no meningeal signs. CARDIOVASCULAR: Regular rate and rhythm without murmurs, gallops, or rubs. RESPIRATORY: Shortness of breath, bilateral expiratory wheezing GASTROINTESTINAL: Abdomen soft, non-tender, nondistended. No guarding. MUSCULOSKELETAL: Extremities without clubbing, cyanosis, or edema. No calf tenderness. NEUROLOGICAL: Awake and alert. Motor and sensory grossly within normal limits. Normal speech. A/P Assessment and Plan Acute exacerbation of radiation pneumonitis symptoms Hypoxia in cancer pt with prior hx of dvt - possible underlying pulmonary embolism. Patient is NOT on home oxygen. Possible early pneumonia. Patient has tactile fever on examination. She has significant wheezing, cough, hypoxia. Last chemo was just on Thursday. Chronic pain History of radiation pneumonitis History of right upper extremity DVT. Status post thrombolysis by IR a few years ago. Hypothyroidism Left breast cancer with metastases to the right lung in 2010. Status post mastectomy. Status post radiation treatment in 2012. Currently on chemotherapy with last dose on Thursday. Oxygen supplementation, keep O2 sat > 92%. Resume nebulizers as needed. Short course of steroids. CT pulmonary angiogram reviewed and no pulmonary embolism. No acute changes. In light of the fact that patient has tactile fever, cough, wheezing, hypoxia, recent chemotherapy Treat her as early pneumonia in an immunocompromised patient. Start patient on levofloxacin IV. Consult pulmonology Dr. Lee Incentive spirometry Albuterol inhaler as needed Monitor oxygen saturation, continue oxygen supplement by nasal cannula Resume her home meds as appropriate. Monitor Pain management with oxycodone 60 mg extended release every 12 hours, oxycodone 15 mg immediate release every 6 hours as needed for pain. DVT prophylaxis with Lovenox. GI prophylaxis on pantoprazole. Discussed Condition With patient, nurse Discharge when improved and cleared by employee relations consultant Chary Mckeon MD May 15, 2017 09:51
[2017-05-15 09:53] LABS: BASOPHIL % 0.1 % (0.0-2.0); HEMATOCRIT 31.7 % (35.0-46.0); HEMOGLOBIN 10.8 GM/DL (11.6-15.3); LYMPH % 3.4 % (9.0-44.0); LYMPHOCYTE # 0.3 TH/MM3 (1.0-4.8); MEAN CELL VOLUME 89.2 FL (80.0-100.0); MEAN CORPUSCULAR HEMOGLOBIN 30.5 PG (27.0-34.0); MEAN CORPUSCULAR HGB CONC 34.2 % (32.0-36.0); MEAN PLATELET VOLUME 7.6 FL (7.0-11.0); MONOCYTE # 0.1 TH/MM3 (0-0.9); NEUT % 94.5 % (16.0-70.0); PLATELET COUNT 258 TH/MM3 (150-450); RED BLOOD COUNT 3.56 MIL/MM3 (4.00-5.30); RED CELL DISTRIBUTION WIDTH 16.4 % (11.6-17.2); WHITE BLOOD COUNT 7.4 TH/MM3 (4.0-11.0)
[2017-05-15] MEDS ORDERED: GLUCAGON 1 MG/ML VIAL OTHER PRN (10:00)
[2017-05-15] MEDS ORDERED: DEXTROSE 50% IN WATER 50 ML VIAL(D50) IV PUSH PRN (10:00)
[2017-05-15] MEDS: LACTOBACILLUS ACIDOPHILUS TAB PO SCH ×2 (10:06→21:10)
[2017-05-15] MEDS: LEVOFLOXACIN 500 MG TAB PO SCH (10:06)
[2017-05-15] MEDS: PANTOPRAZOLE SOD 40 MG DELAYED RELEASE TAB PO SCH (10:06)
[2017-05-15] MEDS: SODIUM CHLORIDE 0.9% FLUSH 10 ML FLUSH IV FLUSH SCH ×2 (10:07→21:12)
[2017-05-15] MEDS: oxyCODONE HCL 20 MG CONTROLLED RELEASE TAB PO SCH ×2 (10:16→21:11)
[2017-05-15 10:18] LABS: BICARBONATE 29.9 MEQ/L (21.0-32.0); CALCIUM 9.5 MG/DL (8.5-10.1); CREATININE 0.86 MG/DL (0.50-1.00)
--- NOTE | 2017-05-15 10:20 | HHI.DCPOC ---
Discharge Care Plan Diagnosis: (1) COPD exacerbation (2) Diabetes mellitus type 2 in nonobese Your Health Problems Are: Fluctuating Blood Sugars Shortness of Breath Goals to Promote Your Health * To prevent worsening of your condition and complications * To maintain your health at the optimal level Directions to Meet Your Goals Take your medications as prescribed Follow your dietary instruction Follow activity as directed Keep your appointments as scheduled Take your immunizations and boosters as scheduled If your symptoms worsen call your PCP, if no PCP go to Urgent Care Center or Emergency Room Smoking is Dangerous to Your Health. Avoid second hand smoke Call the 24-hour hour crisis hotline for domestic abuse at Tayla Cervantes May 15, 2017 10:20
[2017-05-15] MEDS ORDERED: Albuterol Hfa Inh INH (10:21)
[2017-05-15] MEDS: INSULIN ASPART SUPPLEMENTAL SCALE SQ SCH ×3 (12:50→21:43)
[2017-05-15] MEDS ORDERED: GUAI100S5 PO (17:11)
[2017-05-15] MEDS: guaiFENesin E.R. 600 MG TAB PO SCH (18:26)
[2017-05-16] VITALS (11 sets, daily range): BP systolic 128–158; BP diastolic 66–90; PULSE 68–112; RESP 17–20; TEMP 97.2–98.6; O2SAT 97–98
[2017-05-16] MEDS: methylPREDNISolone SOD SUCC 40 MG/1 ML VIAL IV PUSH SCH ×4 (00:16→21:20)
[2017-05-16] MEDS: ZOLPIDEM TARTRATE 10 MG TAB PO PRN (00:21)
[2017-05-16] MEDS: RESP: ALBUTEROL 2.5 MG/IPRATROPIUM 0.5 MG NEB (PRN) NEB ×5 (00:30→22:56)
[2017-05-16] MEDS: LEVOTHYROXINE SODIUM 200 MCG TAB PO SCH (05:39)
[2017-05-16] MEDS: RESP: BUDESONIDE 0.5 MG/2 ML NEB NEB SCH ×2 (07:36→19:29)
[2017-05-16] MEDS: PANTOPRAZOLE SOD 40 MG DELAYED RELEASE TAB PO SCH (09:33)
[2017-05-16] MEDS: guaiFENesin E.R. 600 MG TAB PO SCH ×2 (09:33→21:19)
[2017-05-16] MEDS: LACTOBACILLUS ACIDOPHILUS TAB PO SCH ×2 (09:33→21:19)
[2017-05-16] MEDS: LEVOFLOXACIN 500 MG TAB PO SCH (09:33)
[2017-05-16] MEDS: INSULIN ASPART SUPPLEMENTAL SCALE SQ SCH ×4 (09:34→21:49)
[2017-05-16] MEDS: SODIUM CHLORIDE 0.9% FLUSH 10 ML FLUSH IV FLUSH SCH ×2 (09:34→21:19)
[2017-05-16] MEDS: oxyCODONE HCL 20 MG CONTROLLED RELEASE TAB PO SCH ×2 (09:36→21:20)
[2017-05-16 10:13] LABS: HEMATOCRIT 33.4 % (35.0-46.0); HEMOGLOBIN 11.3 GM/DL (11.6-15.3); MEAN CELL VOLUME 89.8 FL (80.0-100.0); MEAN CORPUSCULAR HEMOGLOBIN 30.5 PG (27.0-34.0); MEAN CORPUSCULAR HGB CONC 33.9 % (32.0-36.0); MEAN PLATELET VOLUME 7.6 FL (7.0-11.0); PLATELET COUNT 265 TH/MM3 (150-450); RED BLOOD COUNT 3.72 MIL/MM3 (4.00-5.30); RED CELL DISTRIBUTION WIDTH 16.3 % (11.6-17.2)
[2017-05-16 10:33] LABS: BICARBONATE 30.8 MEQ/L (21.0-32.0); CREATININE 0.73 MG/DL (0.50-1.00)
--- NOTE | 2017-05-16 11:25 | HHI.PR ---
Subjective Remarks Still with wheezing sob, requiring O2 supplement. Feels very weak. No fever or chills. No n/v/d/c. Objective Vitals Vital Signs Date Time Temp Pulse Resp B/P (MAP) Pulse Ox O2 Delivery O2 Flow Rate FiO2 05/16/17 08:12 98.6 72 20 133/90 (104) 98 05/16/17 07:59 101 05/16/17 04:03 93 05/16/17 03:44 98.1 100 17 128/84 (99) 97 05/15/17 23:43 98.4 101 17 133/87 (102) 94 05/15/17 22:57 102 05/15/17 21:20 98 Nasal Cannula 3.00 05/15/17 19:49 98.1 106 19 140/92 (108) 97 05/15/17 19:22 106 05/15/17 16:29 97 Nasal Cannula 3.00 05/15/17 15:40 98.0 105 18 126/75 (92) 96 05/15/17 12:39 103 05/15/17 12:18 97.8 110 18 144/80 (101) 96 I/O 05/15/17 05/15/17 05/15/17 05/16/17 05/16/17 05/16/17 07:00 15:00 23:00 07:00 15:00 23:00 Output Total 800 ml 500 ml Balance -800 ml -500 ml Output Urine Total 800 ml 500 ml # Voids 2 Result Diagram: 05/16/17 0919 05/16/17 [address] Angiography 05/13/17 0000 Signed Impressions: Service Date/Time: Saturday, May 13, 2017 20:14 - CONCLUSION: 1. No pulmonary embolus. 2. 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 No acute thrombosis/occlusion demonstrated. 3. Surgical changes with chronic scarring, consolidation and volume loss again noted on the right. 4. Right subclavian Swxiry-e-Zhff catheter again noted, tip near the atriocaval junction. Corey Loomis MD Objective Remarks GENERAL: Pleasant well-nourished, well-developed female patient, in some distress due to shortness of breath NECK: Trachea midline. No JVD Supple, nontender, no meningeal signs. CARDIOVASCULAR: Regular rate and rhythm without murmurs, gallops, or rubs. RESPIRATORY: Shortness of breath, bilateral expiratory wheezing not much improved. GASTROINTESTINAL: Abdomen soft, non-tender, nondistended. No guarding. MUSCULOSKELETAL: Extremities without clubbing, cyanosis, or edema. No calf tenderness. NEUROLOGICAL: Awake and alert. Motor and sensory grossly within normal limits. Normal speech. A/P Assessment and Plan Acute exacerbation of radiation pneumonitis symptoms Hypoxia in cancer pt with prior hx of dvt - possible underlying pulmonary embolism. Patient is NOT on home oxygen. Possible early pneumonia. Patient has tactile fever on examination. She has significant wheezing, cough, hypoxia. Last chemo was just on Thursday. Chronic pain History of radiation pneumonitis History of right upper extremity DVT. Status post thrombolysis by IR a few years ago. Hypothyroidism Left breast cancer with metastases to the right lung in 2010. Status post mastectomy. Status post radiation treatment in 2012. Currently on chemotherapy with last dose on Thursday. Oxygen supplementation, keep O2 sat > 92%. Resume nebulizers as needed. Short course of steroids. CT pulmonary angiogram reviewed and no pulmonary embolism. No acute changes. In light of the fact that patient has tactile fever, cough, wheezing, hypoxia, recent chemotherapy Treat her as early pneumonia in an immunocompromised patient. Start patient on levofloxacin IV. Consult pulmonology Dr. Lee Incentive spirometry Albuterol inhaler as needed Monitor oxygen saturation, continue oxygen supplement by nasal cannula Resume her home meds as appropriate. Monitor Pain management with oxycodone 60 mg extended release every 12 hours, oxycodone 15 mg immediate release every 6 hours as needed for pain. DVT prophylaxis with Lovenox. GI prophylaxis on pantoprazole. Discussed Condition With patient, nurse Discharge when improved and cleared by identity management consultant Chary Mckeon MD May 16, 2017 11:25
[2017-05-16] MEDS: IBUPROFEN 400 MG TAB PO PRN (22:04)
[2017-05-16] MEDS: DIAZEPAM 10 MG TAB PO PRN (22:04)
[2017-05-17] VITALS (13 sets, daily range): BP systolic 114–161; BP diastolic 78–96; PULSE 91–109; RESP 18–20; TEMP 96.7–98.3; O2SAT 95–98
[2017-05-17] MEDS: ZOLPIDEM TARTRATE 10 MG TAB PO PRN (01:22)
[2017-05-17] MEDS: RESP: ALBUTEROL 2.5 MG/IPRATROPIUM 0.5 MG NEB (PRN) NEB ×3 (04:22→16:31)
[2017-05-17] MEDS: LEVOTHYROXINE SODIUM 200 MCG TAB PO SCH (05:16)
[2017-05-17] MEDS: methylPREDNISolone SOD SUCC 40 MG/1 ML VIAL IV PUSH SCH ×3 (05:16→22:28)
[2017-05-17] MEDS: RESP: BUDESONIDE 0.5 MG/2 ML NEB NEB SCH ×2 (08:08→20:12)
[2017-05-17] MEDS: LACTOBACILLUS ACIDOPHILUS TAB PO SCH ×2 (08:30→22:28)
[2017-05-17] MEDS: LEVOFLOXACIN 500 MG TAB PO SCH (08:30)
[2017-05-17] MEDS: guaiFENesin E.R. 600 MG TAB PO SCH ×2 (08:30→22:28)
[2017-05-17] MEDS: INSULIN ASPART SUPPLEMENTAL SCALE SQ SCH ×4 (08:30→22:29)
[2017-05-17] MEDS: oxyCODONE HCL 20 MG CONTROLLED RELEASE TAB PO SCH ×2 (08:30→22:29)
[2017-05-17] MEDS: PANTOPRAZOLE SOD 40 MG DELAYED RELEASE TAB PO SCH (08:30)
[2017-05-17] MEDS: SODIUM CHLORIDE 0.9% FLUSH 10 ML FLUSH IV FLUSH SCH ×2 (08:31→22:29)
[2017-05-17] MEDS: IBUPROFEN 400 MG TAB PO PRN (08:36)
[2017-05-17] MEDS ORDERED: SODIUM CHLORIDE 0.65% NASAL DRP/SPRY 30 ML BTL EACH NARE PRN (13:15)
--- NOTE | 2017-05-17 15:16 | HHI.PR ---
Subjective Remarks Patient reports that her pain is currently not controlled. She states she has cancer related pain and normally takes OxyContin 60 mg 3 times daily and oxycodone 45-60 mg every 4 hours as needed. She reports her breathing slightly improved but she still has significant wheezing. Objective Vitals Vital Signs Date Time Temp Pulse Resp B/P (MAP) Pulse Ox O2 Delivery O2 Flow Rate FiO2 05/17/17 12:00 98.1 109 18 114/85 (95) 95 05/17/17 11:30 109 05/17/17 10:41 16 05/17/17 09:40 16 05/17/17 09:40 16 05/17/17 08:08 96 Nasal Cannula 3.00 05/17/17 08:00 97.1 101 19 137/89 (105) 95 05/17/17 08:00 101 05/17/17 05:12 97.4 100 20 161/93 (115) 98 05/17/17 04:45 95 05/17/17 04:26 98 Nasal Cannula 3.00 05/17/17 01:05 97.8 100 19 158/90 (112) 98 05/17/17 00:30 100 05/16/17 23:59 97.8 100 19 158/90 (112) 98 05/16/17 21:30 107 05/16/17 21:17 97.2 109 19 141/87 (105) 98 05/16/17 19:18 98 Nasal Cannula 3.00 05/16/17 15:37 98.2 112 20 145/88 (107) 98 I/O 05/16/17 05/16/17 05/16/17 05/17/17 05/17/17 05/17/17 07:00 15:00 23:00 07:00 15:00 23:00 Output Total 1 ml 2 ml Balance -1 ml -2 ml Output Urine Total 1 ml 1 ml Stool Total 1 ml # Voids 1 # Bowel Movements 1 Result Diagram: 05/16/1791805/16/17918 Objective Remarks GENERAL: Chronically ill-appearing female in no acute distress. CARDIOVASCULAR: Normal rate and regular rhythm without murmurs, gallops, or rubs. RESPIRATORY: There is diffuse expiratory wheezing. Air movement is fair. GASTROINTESTINAL: Abdomen soft, non-tender, non-distended. Normal active bowel sounds MUSCULOSKELETAL: Patient endorse tenderness to palpation over the musculoskeletal area over the left anterior and posterior chest NEURO: Alert & Oriented x4 to person, place, time, situation. Moves all ext x4 PSYCH: Somewhat anxious A/P Assessment and Plan 62-year-old female with: Acute exacerbation of radiation pneumonitis, possible early pneumonia in immunocompromised patient CT pulmonary angiogram reviewed and no pulmonary embolism. No acute changes. There were concern for early pneumonia, and therefore the patient was started on IV antibiotics. - Transitioned to oral Levaquin today. - Continue with supplemental oxygen, wean off as tolerated.Incentive spirometry -Continue with IV steroids, consider transitioning to oral tomorrow based on progress. Left breast cancer with metastases to the right lung in 2010. Status post mastectomy. Status post radiation treatment in 2012. Currently on chemotherapy with last dose on Thursday. Chronic pain related to cancer -Pain management with oxycodone 60 mg extended release every 12 hours, increase oxycodone for breakthrough to 30 mg every 6 hours as needed per the patient's request. History of right upper extremity DVT. Status post thrombolysis by IR a few years ago. Hypothyroidism -Continue home medication Anxiety: - Continue home dose Valium as needed DVT prophylaxis with Lovenox. GI prophylaxis on pantoprazole. Discharge Planning Pending improvement in respiratory status. She may need home oxygen. Damián López MD May 17, 2017 15:16
[2017-05-17] MEDS: guaiFENesin/CODEINE SYRUP 200 MG/20 MG/10 ML CUP PO PRN ×2 (16:54→22:28)
[2017-05-18] VITALS (12 sets, daily range): BP systolic 100–183; BP diastolic 55–97; PULSE 83–120; RESP 18–20; TEMP 97.5–98.3; O2SAT 94–98
[2017-05-18] MEDS: ZOLPIDEM TARTRATE 10 MG TAB PO PRN (00:02)
[2017-05-18] MEDS: LEVOTHYROXINE SODIUM 200 MCG TAB PO SCH (06:04)
[2017-05-18] MEDS: methylPREDNISolone SOD SUCC 40 MG/1 ML VIAL IV PUSH SCH ×2 (06:04→13:56)
[2017-05-18] MEDS: INSULIN ASPART SUPPLEMENTAL SCALE SQ SCH ×4 (08:08→20:59)
[2017-05-18] MEDS: LACTOBACILLUS ACIDOPHILUS TAB PO SCH ×2 (08:09→20:57)
[2017-05-18] MEDS: oxyCODONE HCL 20 MG CONTROLLED RELEASE TAB PO SCH ×2 (08:09→20:57)
[2017-05-18] MEDS: guaiFENesin E.R. 600 MG TAB PO SCH ×2 (08:09→21:01)
[2017-05-18] MEDS: PANTOPRAZOLE SOD 40 MG DELAYED RELEASE TAB PO SCH (08:10)
[2017-05-18] MEDS: LEVOFLOXACIN 500 MG TAB PO SCH (08:10)
[2017-05-18] MEDS: SODIUM CHLORIDE 0.9% FLUSH 10 ML FLUSH IV FLUSH SCH ×2 (08:11→20:56)
[2017-05-18] MEDS: RESP: ALBUTEROL 2.5 MG/IPRATROPIUM 0.5 MG NEB (PRN) NEB (08:39)
[2017-05-18] MEDS: RESP: BUDESONIDE 0.5 MG/2 ML NEB NEB SCH ×2 (08:39→20:58)
[2017-05-18] MEDS: guaiFENesin/CODEINE SYRUP 200 MG/20 MG/10 ML CUP PO PRN (10:10)
--- NOTE | 2017-05-18 11:02 | HHI.PR ---
Subjective Remarks Follow up for radiation pneumonitis. Patient is currently doing well on nasal cannula. Denies any chest pain, fever or chills. She does not feel like she can go home today. She feels somewhat anxious about going home since her home nebulizer machine does not work as well as the nebulizer in the hospital. Objective Vitals Vital Signs Date Time Temp Pulse Resp B/P (MAP) Pulse Ox O2 Delivery O2 Flow Rate FiO2 05/18/17 08:44 102 05/18/17 08:42 96 Nasal Cannula 3.00 05/18/17 08:00 97.7 94 18 151/97 (115) 95 05/18/17 04:59 98.3 104 18 145/87 (106) 96 05/18/17 04:30 98 05/18/17 01:30 102 05/18/17 01:14 98.0 104 18 141/82 (101) 96 05/17/17 20:49 98.3 109 18 147/96 (113) 95 05/17/17 20:30 109 05/17/17 18:37 18 05/17/17 16:31 97 Nasal Cannula 3.00 05/17/17 16:00 96.7 91 18 141/78 (99) 95 05/17/17 12:00 98.1 109 18 114/85 (95) 95 05/17/17 11:30 109 I/O 05/17/17 05/17/17 05/17/17 05/18/17 05/18/17 05/18/17 07:00 15:00 23:00 07:00 15:00 23:00 Intake Total 480 ml Output Total 2 ml Balance -2 ml 480 ml Intake Oral 480 ml Output Urine Total 1 ml Stool Total 1 ml # Voids 1 1 1 # Bowel Movements 1 Result Diagram: 05/16/17 0919 05/16/17 [address] Angiography 05/13/17 0000 Signed Impressions: Service Date/Time: Saturday, May 13, 2017 20:14 - CONCLUSION: 1. No pulmonary embolus. 2. 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 No acute thrombosis/occlusion demonstrated. 3. Surgical changes with chronic scarring, consolidation and volume loss again noted on the right. 4. Right subclavian Bgmcca-q-Jhyu catheter again noted, tip near the atriocaval junction. Corey Loomis MD Objective Remarks GENERAL: AOx3, NAD. SKIN: Warm and dry. HEAD: Normocephalic. EYES: No scleral icterus. No injection or drainage. NECK: Supple, trachea midline. No JVD or lymphadenopathy. CARDIOVASCULAR: Regular rate and rhythm without murmurs, gallops, or rubs. RESPIRATORY: Poor air entry, diffuse wheezing, diffuse coarse breath sound. No accessory muscle use. GASTROINTESTINAL: Abdomen soft, non-tender, nondistended. MUSCULOSKELETAL: No cyanosis, or edema. BACK: Nontender without obvious deformity. No CVA tenderness. Procedures None A/P Assessment and Plan Ms. Beavers is a 62 year old female with a history of breast cancer s/p radiation who was admitted to the hospital due to dyspnea. Radiation pneumonitis Continue O2 to keep O2 sat > 90% DuoNeb as needed, Solu-medrol 40mg Q8hrs, Pulmicort every 12 hours. Continue Levaquin 500 milligrams daily. Also continue Lactinex 1 tablet p.o. every 12 hours. Will discuss with pulmonology regarding discharge plan and switching steroid to p.o. prednisone. Hx of Breast cancer s/p radiation treatment Currently getting outpatient chemotherapy. Continue oxycodone 30 mg every 6 hours as needed, oxycodone SR 60 mg p.o. every 12 hours. Hypothyroidism -continue levothyroxine 200 mcg daily. Full code. Lovenox. Li Manjarrez DO May 18, 2017 11:02 am
[2017-05-18] MEDS ORDERED: cloNIDine HCL 0.1 MG TAB PO PRN (13:45)
[2017-05-18] MEDS: DIAZEPAM 10 MG TAB PO PRN (14:02)
[2017-05-18] MEDS ORDERED: ENOXAPARIN SODIUM 40 MG/0.4 ML SYRINGE SQ SCH (18:00)
--- NOTE | 2017-05-18 20:48 | HHI.PR ---
Subjective Remarks 62 YOWF with H/O ca breast, Radiation Pneumonitis, sob Had episode of worsening of sob and anxiety Took Diazepam and Aerosol nebs Better now at BS. Objective Vital Signs Vital Signs Date Time Temp Pulse Resp B/P (MAP) Pulse Ox O2 Delivery O2 Flow Rate FiO2 05/18/17 18:44 98 Nasal Cannula 2.00 05/18/17 16:00 97.7 102 18 140/92 (108) 97 05/18/17 12:00 97.5 107 18 156/88 (110) 94 05/18/17 08:44 102 05/18/17 08:42 96 Nasal Cannula 3.00 05/18/17 08:00 97.7 94 18 151/97 (115) 95 05/18/17 04:59 98.3 104 18 145/87 (106) 96 05/18/17 04:30 98 05/18/17 01:30 102 05/18/17 01:14 98.0 104 18 141/82 (101) 96 05/17/17 20:49 98.3 109 18 147/96 (113) 95 I/O 05/17/17 05/17/17 05/17/17 05/18/17 05/18/17 05/18/17 07:00 15:00 23:00 07:00 15:00 23:00 Intake Total 480 ml Output Total 2 ml Balance -2 ml 480 ml Intake Oral 480 ml Output Urine Total 1 ml Stool Total 1 ml # Voids 1 1 1 3 # Bowel Movements 1 1 Result Diagram: 05/16/1791805/16/17918 Objective Remarks GENERAL: MBMN WF, mild sob, anxious SKIN: Warm and dry. HEAD: Normocephalic. EYES: No scleral icterus. No injection or drainage. NECK: Supple, trachea midline. No JVD or lymphadenopathy. CARDIOVASCULAR: Regular rate and rhythm without murmurs, gallops, or rubs. RESPIRATORY: Breath sounds equal bilaterally. No accessory muscle use. GASTROINTESTINAL: Abdomen soft, non-tender, nondistended. MUSCULOSKELETAL: No cyanosis, or edema. BACK: Nontender without obvious deformity. No CVA tenderness. A/P Assessment and Plan Dysnoea Radiation Pneumonitis Anxiety Ch Pain H/O Ca breast PLAN: DC Solumedrol Prednisone 10 mg tid Cont Levaquin Aerosol nebs Diazepam for anxiety DC plans for home Aneja,Jose Dev MD May 18, 2017 20:48
[2017-05-19] MEDS: guaiFENesin/CODEINE SYRUP 200 MG/20 MG/10 ML CUP PO PRN ×2 (01:58→09:55)
[2017-05-19] MEDS: RESP: ALBUTEROL 2.5 MG/IPRATROPIUM 0.5 MG NEB (PRN) NEB ×2 (02:17→11:54)
[2017-05-19 05:00] VITALS: BP 126/76; PULSE 95; RESP 20; TEMP 97.1; O2SAT 96
[2017-05-19] MEDS: LEVOTHYROXINE SODIUM 200 MCG TAB PO SCH (06:03)
[2017-05-19 06:12] VITALS: BP 198/92; PULSE 70; RESP 18; TEMP 97.5; O2SAT 93
[2017-05-19 06:22] VITALS: BP 168/92
[2017-05-19] MEDS: INSULIN ASPART SUPPLEMENTAL SCALE SQ SCH ×2 (07:21→13:16)
[2017-05-19] MEDS: RESP: BUDESONIDE 0.5 MG/2 ML NEB NEB SCH (07:24)
[2017-05-19 07:34] VITALS: O2SAT 95
[2017-05-19] MEDS: PANTOPRAZOLE SOD 40 MG DELAYED RELEASE TAB PO SCH (07:47)
[2017-05-19] MEDS: LACTOBACILLUS ACIDOPHILUS TAB PO SCH (07:47)
[2017-05-19] MEDS: guaiFENesin E.R. 600 MG TAB PO SCH (07:47)
[2017-05-19] MEDS: oxyCODONE HCL 20 MG CONTROLLED RELEASE TAB PO SCH (07:47)
[2017-05-19] MEDS: LEVOFLOXACIN 500 MG TAB PO SCH (07:48)
[2017-05-19] MEDS: predniSONE 10 MG TAB PO SCH ×2 (07:48→12:16)
[2017-05-19] MEDS: SODIUM CHLORIDE 0.9% FLUSH 10 ML FLUSH IV FLUSH SCH (07:49)
[2017-05-19 07:56] VITALS: BP 125/73; PULSE 96; RESP 20; TEMP 97.5; O2SAT 96
[2017-05-19 11:41] VITALS: BP 143/81; PULSE 104; RESP 20; TEMP 98.1; O2SAT 96
[2017-05-19] MEDS ORDERED: OXYGENDME NAS.CANULA (11:42)
[2017-05-19] MEDS ORDERED: PRED10 PO (11:44)
[2017-05-19] MEDS: DIAZEPAM 10 MG TAB PO PRN (13:41)
[2017-05-19] MEDS ORDERED: LANCETS1 MI1 (14:15)
[2017-05-19] MEDS ORDERED: GLUCTES12 (14:15)
[2017-05-19] MEDS ORDERED: BIOM30MI (14:15)
[2017-05-19] MEDS ORDERED: GLUCKIT15 (14:15)
[2017-05-19] MEDS ORDERED: NOVOLOGP2 SQ (14:16)
--- NOTE | 2017-05-19 18:16 | HHI.DS ---
Discharge Summary Admission Date May 13, 2017 at 20:46 Discharge Date: May 19, 2017 Admitting Diagnosis COPD exacerbation (1) Radiation pneumonitis ICD Code: J70.0 - Radiation pneumonitis Diagnosis: Principal Status: Acute (2) Hypothyroidism ICD Code: E03.9 - Hypothyroidism Status: Chronic (3) Breast cancer ICD Code: C50.919 - Malignant neoplasm of breast Status: Chronic Procedures None Brief History - From Admission History from patient, ER physician, medication, and review of medical records. Patient reported that she was having trouble breathing for the past few days. She reports she was coughing and wheezing a lot. Denies fever. Denies any copious sputum production. However she states that she does cough up once in a while. No specific colors except whitish. On review of system, patient reports of right and left rib area pains. She states this is chronic. She reports she has chronic pain because of mastectomy. She follows with a pain management doctor who specializes mostly on oncology patients in [place]. She states that she would need pain meds here. She states she usually takes oxycodone 60 mg extended release 3 times daily with oxycodone immediate release 15 mg 4 tablets every 4-6 hours as needed at home. Patient is explained that these are high doses and that in light of her hypoxia and respiratory issues, I will not be giving high doses in hospital acute situation. She is very pleasant and agreeable to this. Patient denies any calf pains or cuff asymmetry. Denies any long distance travels in the past few months. Denies any blood in her stool or in her urine. When asked about sick contacts, she stated that her have been coughing a lot. He is not on antibiotics. Patient reports she has a lot of lung anxious chronically because she suffers from radiation pneumonitis. She has history of breast cancer with metastasis to the lung for which she received radiation treatment and lobectomy. At the time of my exam, despite treatment with multiple rounds of nebulizers in the ER, patient still is saturating at 88-90% on room air during my interview. CBC/BMP: 05/16/1791805/16/[address] Angiography 05/13/17 0000 Signed Impressions: Service Date/Time: Saturday, May 13, 2017 20:14 - CONCLUSION: 1. No pulmonary embolus. 2. 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 No acute thrombosis/occlusion demonstrated. 3. Surgical changes with chronic scarring, consolidation and volume loss again noted on the right. 4. Right subclavian Swjtoy-b-[id number] catheter again noted, tip near the atriocaval junction. Corey Loomis MD PE at Discharge GENERAL: AOx3, NAD. SKIN: Warm and dry. HEAD: Normocephalic. EYES: No scleral icterus. No injection or drainage. NECK: Supple, trachea midline. No JVD or lymphadenopathy. CARDIOVASCULAR: Regular rate and rhythm without murmurs, gallops, or rubs. RESPIRATORY: Poor air entry, diffuse wheezing, diffuse coarse breath sound. No accessory muscle use. GASTROINTESTINAL: Abdomen soft, non-tender, nondistended. MUSCULOSKELETAL: No cyanosis, or edema. BACK: Nontender without obvious deformity. No CVA tenderness. Pt update on day of discharge Patient is currently doing well. No acute concerns. She is using 1-2 L of O2 via NC. No fever, chills. Hospital Course Ms. Beavers is a 62 year old female with a history of breast cancer s/p radiation who was admitted to the hospital due to dyspnea. Radiation pneumonitis Continue O2 to keep O2 sat > 90% DuoNeb as needed, Solu-medrol 40mg Q8hrs, Pulmicort every 12 hours. Received Levaquin 500 milligrams daily. Also continue Lactinex 1 tablet p.o. every 12 hours. Pulmonology switched IV steroid to PO Prednisone. We will continue Prednisone upon discharge. Follow up with Pulm in 1-2 weeks. Walk test indicated need for home O2 which was arranged prior to patient's discharge. Hx of Breast cancer s/p radiation treatment Currently getting outpatient chemotherapy. Continue oxycodone 30 mg every 6 hours as needed, oxycodone SR 60 mg p.o. every 12 hours. Hypothyroidism -continue levothyroxine 200 mcg daily. Patient received Lovenox while in the hospital. Pt Condition on Discharge: Good Discharge Disposition: Discharge Home Discharge Time: > 30 minutes Discharge Instructions DIET: Follow Instructions for: Heart Healthy Diet Activities you can perform: Regular-No Restrictions Follow up Referrals: PCP Follow-up - 2-3 Days PCP Follow-up Pulmonology - 1 Week Pulmonology New Medications: Blood Glucose Monitoring W/Device (Glucocom Blood Glucose Mo W/Device) 1 Kit Kit KIT .XX DIRECTED for Blood Sugar Management, #1 3 Refills Glucocom Test Strips (Glucocom Test Strips) 1 Chary Chary EA .XX DIRECTED for Blood Sugar Management, #1 3 Refills Insulin Aspart Inj (Novolog Inj) 1,000 Unit/10 Ml Vial 1-9 UNITS SQ ACHS for Blood Sugar Management, #10 ML 0 Refills Max dose at bedtime:( )units; sugars less than 70,(0)units; sugars 150-199,(1) unit; sugars 200-249,(3) units; sugars 250-299,(5) units; sugars 300-349,(7) units; sugars greater than 349,(9) units Lancets (Lancets) 1 Mis Mis EA .XX DIRECTED for Blood Sugar Management, #1 3 Refills Metformin (Metformin) 500 Mg Tab 500 MG PO BIDPC for Blood Sugar Management, #60 TAB 0 Refills Oxygen (O2) (Oxygen (O2)) Device LITER SAUNDRA.CANULA CONTINUOUS for Prevent Hypoxemia, #2 Oxygen Concentrator Portable Gaseous 2 L/min via Nasal Canula Continuous For 99 months Parenteral Therapy Supplies (Sharpsafety Sharps Contai) 1 Mis Mis EA .XX DIRECTED, #1 3 Refills Prednisone (Prednisone) 10 Mg Tab 10 MG PO DAILY for Pneumonitis, #21 TAB 0 Refills [Albuterol Hfa Inh] () 60 PUFF/8 GM AERO 2 PUFF INH Q4H PRN for SOB/WHEEZING , #1 INHALER Continued Medications: Albuterol Neb (Albuterol Neb) 2.5 Mg/0.5 Ml Neb 2.5 MG NEB Q4HR NEB PRN for WHEEZING, EA Note: The Albuterol Sulfate Inhalation Solution is concentrated and must be diluted. Read complete instructions carefully before using. Budesonide Neb (Pulmicort Respules) 0.5 Mg/2 Ml Neb 0.5 MG NEB Q12HR NEB for Breathing Treatment, #60 NEBULE 0 Refills Diazepam (Valium) 10 Mg Tab 10 MG PO BID PRN for MODERATE TO SEVERE ANXIETY, TAB 0 Refills Guaifenesin-Codeine Liq (Guaifenesin-Codeine Liq) 100-10 Mg/5 Ml Soln 5 ML PO Q4-6H PRN for COUGH, #1 BOTTLE 0 Refills Lactobacillus Acidophilus (Acidophilus/l-Sporogenes) 1 Tab Tab 1 TAB PO Q12HR for probiotics, #14 TAB 0 Refills Levothyroxine (Synthroid) 200 Mcg Tab 200 MCG PO DAILY for Thyroid, #30 TAB 0 Refills Ondansetron (Zofran) 4 Mg Tab 4 MG PO Q6HR PRN for NAUSEA OR VOMITING, TAB 0 Refills Oxycodone (Oxycodone) 15 Mg Tab 15 MG PO Q6H PRN for PAIN, TAB 0 Refills Oxycodone ER (Oxycontin) 60 Mg Tab 60 MG PO Q12HR for Pain Management, TAB 0 Refills Prochlorperazine Maleate (Prochlorperazine Maleate) 10 Mg Tab 10 MG PO Q4H PRN for NAUSEA OR VOMITING, TAB 0 Refills Zolpidem (Zolpidem) 10 Mg Tab 10 MG PO HS PRN for INSOMNIA, TAB 0 Refills Li Manjarrez DO May 19, 2017 18:16
== END 2017-05-19 14:30 | disposition home or self-care (01) | DRG 206 ==
LOC: NEPC 15:43 → NEDA 19:29 → OBSVTOIN 20:46 → NEPFCDU 21:09 → N05A 05-16 20:11
PROVIDERS: ADMIT Hospitalist; ATTEND Hospitalist
DX: J70.0 Acute pulmonary manifestations due to radiation (principal); C78.01 Secondary malignant neoplasm of right lung; D89.9 Disorder involving the immune mechanism, unspecified; D64.9 Anemia, unspecified; F32.9 Major depressive disorder, single episode, unspecified; E11.9 Type 2 diabetes mellitus without complications; J18.9 Pneumonia, unspecified organism; E03.9 Hypothyroidism, unspecified; R00.0 Tachycardia, unspecified; Y84.2 Radiological procedure and radiotherapy as the cause of abnormal reaction of the patient, or of later complication, without mention of misadventure at the time of the procedure; F41.9 Anxiety disorder, unspecified; G89.3 Neoplasm related pain (acute) (chronic); R09.02 Hypoxemia; R07.89 Other chest pain; Z92.3 Personal history of irradiation; Z90.10 Acquired absence of unspecified breast and nipple; Z86.718 Personal history of other venous thrombosis and embolism; Z79.899 Other long term (current) drug therapy; Z85.3 Personal history of malignant neoplasm of breast
CPT/HCPCS: 71045; 71275; 80048; 80053; 82948; 84484; 85025; 85027; 85610; 85730; 93005; 94150; 94618; 94640; 94664; 94667; 94668; 96374; 96375; 96376; J1650; J1815; J1940; J2270; J2920; J2930; J7512; J7626; Q9967

== ENCOUNTER → 2017-06-25 | Outpatient (CLI) | payer OTHER ==
[~2017-06-25] MED LIST changes: +Albuterol Hfa Inh INH; +BIOM30MI; +DIAZ10 PO; +GLUCKIT15; +GLUCTES12; +GUAI100S5 PO; +LANCETS1 MI1; -LEVA500T33 PO; +METF500T PO; +NOVOLOGP2 SQ; +OXYGENDME NAS.CANULA; -[UNRECOGNIZED DRUG - CODE] IV PUSH
== END ==
LOC: HRSP 12:46
PROVIDERS: ATTEND Specialist
DX: J44.9 Chronic obstructive pulmonary disease, unspecified (principal)
CPT/HCPCS: 94618

== ENCOUNTER 2017-08-10 21:10 | Emergency (ER) | payer OTHER ==
[~2017-08-10] VITALS: Ht 165.1 cm; Wt 77.0 kg
[2017-08-10] MEDS ORDERED: IOHEXOL 350 MG/ML 10 ML VIAL (for RAD DIAG) IVCONTRAST ONE (21:11)
[2017-08-10 22:23] VITALS: BP 128/86; PULSE 124; RESP 20; TEMP 97.5; O2SAT 96
[2017-08-10] MEDS ORDERED: PROCHLORPERAZINE INJ 10 MG/2 ML VIAL IV PUSH ONE (22:45)
[2017-08-10] MEDS ORDERED: SODIUM CHLOR 0.9% 1000 ML INJ 1,000 ML IV ONE (22:45)
[2017-08-10 22:47] VITALS: RESP 20
--- NOTE | 2017-08-10 22:58 | PD ---
HPI Chief Complaint: Abdominal Pain Time Seen by Provider: 22:37 Travel History International Travel<30 days: No Contact w/Intl Traveler<30days: No Traveled to known affect area: No History of Present Illness HPI The patient is a 62 year old female who presents to the [facility] emergency department with a history of abdominal pain that she reports is across the top of her abdomen and also in the left lower quadrant that began around noon today. She reports it has been associated with nausea and then after arriving in the emergency department vomiting 3. She reports that she tried taking oxycodone, Zofran, and Compazine at home for the nausea and pain, however she vomited this up when arriving in the emergency department. She reports that the pain is constant and gradually worsening with time. She reports that the character of the pain is a stabbing and twisting sensation. She denies having any diarrhea. She reports that she has had some constipation. Her last bowel movement was hard and small yesterday. The patient reports that she recently quit chemotherapy 6 weeks ago. She has a history of metastatic breast cancer to the lung. She denies having any metastasis that she is aware of and at her prior abdominal surgical history consists of an exploratory laparotomy for ruptured ectopic, cholecystectomy. She reports that this evening she has had difficulty starting her stream of urine with dysuria. She denies having any urinary frequency, however she has had urinary urgency. She denies having any flank pain. She denies having any known recent fevers, cough or congestion. She reports that she is on 2 L nasal cannula O2 as needed for radiation pneumonitis. She also uses inhalers as needed for this. Her O2 saturation on room air on my arrival to the room. She denies having any significant shortness of breath at this time. On review of systems otherwise, the patient denies having any neck pain, chest pain, shortness of breath, or neurologic symptoms. [facility] Past Medical History Narrative Medical The patient's past medical history is significant for anemia, asthma, history of chronic pain, diverticulosis and diverticulitis, diabetes mellitus, hypothyroid disorder, migraine headaches, breast cancer with metastasis to the lungs. Hx Anticoagulant Therapy: Yes (LOVENOX) Anemia: Yes Arthritis: No Asthma: Yes Autoimmune Disease: No Blood Disorders: No Anxiety: Yes Depression: Yes Heart Rhythm Problems: No Cancer: Yes (breast ca mets to lungs) Cardiovascular Problems: No High Cholesterol: No Chemotherapy: Yes Chest Pain: No Congestive Heart Failure: No COPD: No Cerebrovascular Accident: No Coronary Artery Disease: No Diabetes: No Diminished Hearing: No Diverticulitis: Yes Endocrine: Yes Gastrointestinal Disorders: Yes (diverticulitis) GERD: No Glaucoma: No Genitourinary: No Headaches: Yes Hepatitis: No Hiatal Hernia: No Hypertension: No Immune Disorder: No Implanted Vascular Access Dvce: Yes (PORT RIGHT CHEST) Kidney Stones: No Musculoskeletal: No Neurologic: Yes Psychiatric: Yes Reproductive: No Respiratory: Yes (ca. mets to lungs) Immunizations Current: Yes Migraines: Yes Myocardial Infarction: No Radiation Therapy: Yes Renal Failure: No Seizures: No Sickle Cell Disease: No Sleep Apnea: No Thyroid Disease: Yes Ulcer: No Tetanus Vaccination: Unknown Influenza Vaccination: Yes PNEUMOCCOCAL Vaccine (Year): 1 ?: Not Menopausal: Yes Dilation and Curettage (D&C): Yes Past Surgical History Narrative Surgical The patient's past surgical history is significant for cholecystectomy, hysterectomy, knee surgery, tonsillectomy, bilateral tubal ligation, right upper lobectomy, mastectomy. Abdominal Surgery: Yes (briana) AICD: No Appendectomy: No Arteriovenous Shunt: No Cardiac Surgery: No Cholecystectomy: Yes Ear Surgery: No Endocrine Surgery: No Eye Surgery: No Genitourinary Surgery: No Gynecologic Surgery: Yes (mastectomy/hyst.) Hysterectomy: Yes Insulin Pump: No Joint Replacement: No Mastectomy: Yes (LEFT BREAST) Neurologic Surgery: No Oral Surgery: No Pacemaker: No Thoracic Surgery: Yes (L lobectomy) Other Surgery: Yes (SINUS SX) Social History Alcohol Use: Yes (RARELY PER PT) Tobacco Use: No Substance Use: No Allergies-Medications (Allergen,Severity, Reaction): Coded Allergies: metronidazole (Unverified Allergy, Severe, Nausea/Vomiting, 08/10/17) eribulin (Unverified Adverse Reaction, Mild, Itching, 08/10/17) Pt denies allergy Uncoded Allergies: Transpore Tape (Allergy, Mild, Rash, 05/14/16) Reported Meds & Prescriptions Reported Meds & Active Scripts Active Novolog Inj (Insulin Aspart) 1,000 Unit/10 Ml Vial 1-9 Units SQ ACHS Max dose at bedtime:( )units; sugars less than 70,(0)units; sugars 150-199,(1) unit; sugars 200-249,(3) units; sugars 250-299,(5) units; sugars 300-349,(7) units; sugars greater than 349,(9) units Sharpsafety Sharps Contai (Parenteral Therapy Supplies) 1 Mis Mis Ea .XX DIRECTED Glucocom Test Strips (Blood Glucose Test Strips) 1 Chary Chary Ea .XX DIRECTED Lancets 1 Mis Mis Ea .XX DIRECTED Glucocom Blood Glucose Mo W/Device (Device) 1 Kit Kit Kit .XX DIRECTED Prednisone 10 Mg Tab 10 Mg PO DAILY Oxygen (O2) Device Liter SAUNDRA.CANULA CONTINUOUS Oxygen Concentrator Portable Gaseous 2 L/min via Nasal Canula Continuous For 99 months [Albuterol Hfa Inh] 60 PUFF/8 GM Aero 2 Puff INH Q4H PRN Metformin (Metformin HCl) 500 Mg Tab 500 Mg PO BIDPC Acidophilus/l-Sporogenes (Lactobacillus Acidophilus) 1 Tab Tab 1 Tab PO Q12HR Reported Guaifenesin-Codeine Liq 100-10 Mg/5 Ml Soln 5 Ml PO Q4-6H PRN Valium (Diazepam) 10 Mg Tab 10 Mg PO BID PRN Pulmicort Respules (Budesonide) 0.5 Mg/2 Ml Neb 0.5 Mg NEB Q12HR NEB Albuterol Neb (Albuterol Sulfate) 2.5 Mg/0.5 Ml Neb 2.5 Mg NEB Q4HR NEB PRN Note: The Albuterol Sulfate Inhalation Solution is concentrated and must be diluted. Read complete instructions carefully before using. Prochlorperazine Maleate 10 Mg Tab 10 Mg PO Q4H PRN Zofran (Ondansetron HCl) 4 Mg Tab 4 Mg PO Q6HR PRN Oxycontin (Oxycodone HCl) 60 Mg Tab 60 Mg PO Q12HR Oxycodone (Oxycodone HCl) 15 Mg Tab 15 Mg PO Q6H PRN Zolpidem (Zolpidem Tartrate) 10 Mg Tab 10 Mg PO HS PRN Synthroid (Levothyroxine Sodium) 200 Mcg Tab 200 Mcg PO DAILY Review of Systems General / Constitutional: No: Fever Eyes: No: Visual changes HENT: No: Headaches Cardiovascular: No: Chest Pain or Discomfort Respiratory: No: Shortness of Breath Gastrointestinal: Positive: Nausea, Vomiting, Abdominal Pain, Constipation, No : Diarrhea, Indigestion, Loss of Appetite Genitourinary: Positive: Dysuria Musculoskeletal: No: Pain Skin: No Rash Neurologic: No: Weakness, Focal Abnormalities, Change in Mentation, Slurred Speech, Sensory Disturbance Psychiatric: No: Depression Endocrine: No: Polydipsia Hematologic/Lymphatic: No: Easy Bruising Physical Exam Narrative General: The patient is a well-developed well-nourished female, uncomfortable appearing on exam, holding her abdomen. Head and Neck exam: Head is normocephalic atraumatic. Eyes: EOMI, pupils are equal round and reactive to light. Nose: Midline septum with pink mucous membranes Mouth: Dentition unremarkable. Moist mucus membranes. Posterior oropharynx is not erythematous. No tonsillar hypertrophy. Uvula midline. Airway patent. Neck: No palpable lymphadenopathy. No nuchal rigidity. No thyromegaly. Cardiovascular: Sinus tachycardia in the 1 teens without murmurs, gallops, or rubs. No pulse deficit to the extremities on simultaneous auscultation and palpation of her radial artery. Lungs: Expiratory wheezes audible throughout bilateral lung viveros anteriorly. No rhonchi or crackles. No accessory muscle use noted. No paroxysmal abdominal breathing or tripoding. No conversational dyspnea. Abdomen: Soft, with tenderness on palpation of the left upper and left lower quadrant of the abdomen including the midepigastric area. No other tenderness on palpation of the other quadrants of the abdomen. No tenderness on palpation of McBurney' s point. Normal bowel sounds are audible. No guarding, rebound, or rigidity. Negative Pleitez's sign. Extremities: No clubbing, cyanosis, or edema. 2+ pulses in all 4 extremities. No calf tenderness on palpation. Back: No spinous process tenderness to palpation. No costovertebral angle tenderness to palpation. Neurologic Exam: Grossly nonfocal. Skin Exam: No rash noted. Intact skin that is warm and dry. Data Data Last Documented VS Vital Signs Date Time Temp Pulse Resp B/P (MAP) Pulse Ox O2 Delivery O2 Flow Rate FiO2 08/11/17 03:25 100 20 95/64 (74) 100 Room Air 08/10/17 22:23 97.5 Orders Orders Electrocardiogram (08/10/17 22:38) Complete Blood Count With Diff (08/10/17 22:38) Comprehensive Metabolic Panel (08/10/17 22:38) Creatine Kinase (Cpk) (08/10/17 22:38) Ckmb (Isoenzyme) Profile (08/10/17 22:38) Troponin I (08/10/17 22:38) Prothrombin Time / Inr (Pt) (08/10/17 22:38) Act Partial Throm Time (Ptt) (08/10/17 22:38) Lipase (08/10/17 22:38) Urinalysis - C+S If Indicated (08/10/17 22:38) Magnesium (Mg) (08/10/17 22:38) Chest, Single Ap (08/10/17 22:38) Iv Access Insert/Monitor (08/10/17 22:38) Ecg Monitoring (08/10/17 22:38) Oximetry (08/10/17 22:38) Lactic Acid (08/10/17 22:38) Sodium Chlor 0.9% 1000 Ml Inj (Ns 1000 M (08/10/17 22:45) Prochlorperazine Inj (Compazine Inj) (08/10/17 22:45) Morphine Inj (Morphine Inj) (08/10/17 23:00) Albuterol-Ipratropium Neb (Duoneb Neb) (08/10/17 23:00) Ct Abd/Pel W Iv Contrast(Rout) (08/11/17 ) Sodium Chlor 0.9% 1000 Ml Inj (Ns 1000 M (08/11/17 00:30) Urine Culture (08/11/17 00:45) Ciprofloxacin (Cipro) (08/11/17 02:45) Iohexol 350 Inj (Omnipaque 350 Inj) (08/10/17 21:11) Polyethylene Glycol (Miralax) (08/11/17 03:45) Oral Rehydration (08/11/17 03:40) Labs Laboratory Tests Test 08/10/17 23:43 08/11/17 00:45 White Blood Count 11.9 TH/MM3 Red Blood Count 4.09 MIL/MM3 Hemoglobin 12.2 GM/DL Hematocrit 36.4 % Mean Corpuscular Volume 89.0 FL Mean Corpuscular Hemoglobin 29.7 PG Mean Corpuscular Hemoglobin Concent 33.4 % Red Cell Distribution Width 15.5 % Platelet Count 306 TH/MM3 Mean Platelet Volume 8.0 FL Neutrophils (%) (Auto) 91.0 % Lymphocytes (%) (Auto) 4.1 % Monocytes (%) (Auto) 3.8 % Eosinophils (%) (Auto) 0.7 % Basophils (%) (Auto) 0.4 % Neutrophils # (Auto) 10.8 TH/MM3 Lymphocytes # (Auto) 0.5 TH/MM3 Monocytes # (Auto) 0.5 TH/MM3 Eosinophils # (Auto) 0.1 TH/MM3 Basophils # (Auto) 0.0 TH/MM3 CBC Comment DIFF FINAL Differential Comment Prothrombin Time 10.7 SEC Prothromb Time International Ratio 1.1 RATIO Activated Partial Thromboplast Time 24.7 SEC Blood Urea Nitrogen 14 MG/DL Creatinine 0.75 MG/DL Random Glucose 178 MG/DL Total Protein 8.0 GM/DL Albumin 3.8 GM/DL Calcium Level 8.9 MG/DL Magnesium Level 2.1 MG/DL Alkaline Phosphatase 94 U/L Aspartate Amino Transf (AST/SGOT) 15 U/L Alanine Aminotransferase (ALT/SGPT) 21 U/L Total Bilirubin 0.3 MG/DL Sodium Level 138 MEQ/L Potassium Level 4.1 MEQ/L Chloride Level 100 MEQ/L Carbon Dioxide Level 30.1 MEQ/L Anion Gap 8 MEQ/L Estimat Glomerular Filtration Rate 78 ML/MIN Lactic Acid Level 0.7 mmol/L Total Creatine Kinase 79 U/L Troponin I LESS THAN 0.02 NG/ML Lipase 49 U/L Urine Color YELLOW Urine Turbidity CLEAR Urine pH 5.5 Urine Specific Mclean 1.019 Urine Protein NEG mg/dL Urine Glucose (UA) NEG mg/dL Urine Ketones NEG mg/dL Urine Occult Blood NEG Urine Nitrite NEG Urine Bilirubin NEG Urine Urobilinogen LESS THAN 2.0 MG/DL Urine Leukocyte Esterase MOD Urine RBC 2 /hpf Urine WBC 16 /hpf Urine Squamous Epithelial Cells 1 /hpf Urine Bacteria FEW /hpf Urine Mucus FEW /lpf Microscopic Urinalysis Comment CULTURE INDICATED MDM Medical Decision Making Medical Screen Exam Complete: Yes Emergency Medical Condition: Yes Medical Record Reviewed: Yes Differential Diagnosis Diverticulitis, versus colitis, versus ileus, versus bowel obstruction, versus ischemic bowel Narrative Course During the course of the patient's emergency department visit, the patient's history, examination, and differential diagnosis were reviewed with the patient. The patient was placed on a nuclear monitoring technician with oximetry and frequent blood pressure monitoring. The patient had IV access obtained and blood work sent for analysis. The patient had a EKG done on arrival. The patient's EKG shows a sinus tachycardia heart rate of 124, QRS duration 87 ms, QTC [address] segment elevation is noted. The patient was initially provided normal saline 1 L IV fluid bolus which was repeated 1, Compazine 5 mg IV, DuoNeb 1, morphine 4 mg IV for pain. The patient on reexamination reported feeling improved. She was passing gas and mobile to the bathroom on multiple occasions. The patient's laboratory studies were reviewed and remarkable for a white count of 11.9, hemoglobin 12.2, platelets 306 with neutrophils 91, CMP is remarkable for glucose of 178, cardiac enzymes are within normal limits, lipase 49, lactic acid is within normal limits, PT PTT within normal limits, urinalysis shows moderate leukocyte esterase, 16 WBCs, few bacteria, culture indicated. The patient was given ciprofloxacin 500 mg p.o. 1. Radiology studies were reviewed and remarkable for chest x-ray that shows no acute abnormality or interval change with chronic right upper lung zone confluent opacity likely representing scarring. CT scan of the abdomen and pelvis shows no evidence of metastatic disease, mild nonspecific mid to distal small bowel distention, no transition point, status post cholecystectomy, diverticuli without diverticulitis, moderate amount of stool throughout the colon, lower lumbar spine facet arthrosis. The patient's results were discussed with her. The patient reported feeling improved. Regarding the patient's constipation on CT, the patient reports that she does normally take MiraLAX for constipation, however she has not been taking it recently. I offered her a dose in the emergency department. The patient tolerated this well. The patient will be discharged home with instructions to push fluids and get plenty of rest. The patient is instructed to eat a bland diet over the next 24 hours and follow-up closely with her primary care physician for reexamination in the next day. The patient is resting comfortably and feels better, is alert and in no distress. The patient's results and examination findings were discussed with the patient. The repeat examination is unremarkable and benign. The history, exam, diagnostic testing, and current condition do not suggest any significant pathology to warrant further testing, continued ED treatment, admission, or surgical evaluation at this point. The vital signs have been stable. The patient does not have uncontrollable pain, intractable vomiting, or other significant symptoms. The patient's condition is stable and appropriate for discharge. The patient will pursue further outpatient evaluation with a primary care physician or other designated or consulting physician as indicated in the discharge instructions. The patient is instructed to report back to the emergency department immediately for reexamination in the mean time if she develops any new or worsening signs or symptoms. The patient expressed understanding and was agreeable with this plan. Diagnosis Primary Impression: Abdominal pain Qualified Codes: R10.32 - Left lower quadrant pain Additional Impression: Urinary tract infection Qualified Codes: N39.0 - Urinary tract infection, site not specified Referrals: Primary Care Physician 1 day Patient Instructions: Constipation (ED), General Instructions, Ileus (ED) Med/Other Pt SpecificInfo: No Change to Meds Disposition: 01 DISCHARGE HOME Condition: Stable Mary Smith MD Aug 10, 2017 22:58
[2017-08-10] MEDS ORDERED: MORPHINE SULFATE 4 MG/ML INJ IV PUSH ONE (23:00)
[2017-08-10] MEDS ORDERED: RESP: ALBUTEROL 2.5 MG/IPRATROPIUM 0.5 MG NEB (SCH) NEB ONE (23:00)
--- NOTE | 2017-08-10 23:10 | RADRPT ---
EXAM DATE: 08/10/2017 10:57 PM EDT AGE/SEX: 62 years / Female INDICATIONS: Chest and abdominal pain. CLINICAL DATA: This is the patient's initial encounter. Patient reports that signs and symptoms have been present for 1 day and indicates a pain score of 8/10. MEDICAL/SURGICAL HISTORY: . Cardiovascular disease. Carcinoma, breast. . Mastectomy, left. Lo bectomy, right COMPARISON: [facility] [place], CHEST SINGLE AP, 05/13/2017. . FINDINGS: Single AP view of the chest. Right-sided [id number] remains in place. Chronic volume loss and opac ity in the right upper lung zone. No significant interval change. Left lung clear. No evidence of ple ural effusion or pneumothorax. CONCLUSION: No significant interval change with persistent chronic volume loss on the right with chronic right up per lung zone confluent opacity likely representing scarring/postsurgical change. Electronically signed by: Javy Hall MD 08/10/2017 11:09 PM EDT
[2017-08-10 23:49] LABS: AUTOMATED NEUTROPHIL # 10.8 TH/MM3 (1.8-7.7); BASOPHIL % 0.4 % (0.0-2.0); EOSINOPHIL # 0.1 TH/MM3 (0-0.4); EOSINOPHIL % 0.7 % (0.0-4.0); HEMATOCRIT 36.4 % (35.0-46.0); HEMOGLOBIN 12.2 GM/DL (11.6-15.3); LYMPH % 4.1 % (9.0-44.0); LYMPHOCYTE # 0.5 TH/MM3 (1.0-4.8); MEAN CORPUSCULAR HEMOGLOBIN 29.7 PG (27.0-34.0); MEAN CORPUSCULAR HGB CONC 33.4 % (32.0-36.0); MONO % 3.8 % (0.0-8.0); MONOCYTE # 0.5 TH/MM3 (0-0.9); PLATELET COUNT 306 TH/MM3 (150-450); RED BLOOD COUNT 4.09 MIL/MM3 (4.00-5.30); RED CELL DISTRIBUTION WIDTH 15.5 % (11.6-17.2); WHITE BLOOD COUNT 11.9 TH/MM3 (4.0-11.0)
[2017-08-10 23:56] LABS: INTERNATIONAL NORMALIZED RATIO 1.1 RATIO; PROTHROMBIN TIME - PATIENT 10.7 SEC (9.8-11.6)
[2017-08-11 00:05] LABS: ALBUMIN 3.8 GM/DL (3.4-5.0); ALT (GPT) 21 U/L (10-53); AST (GOT) 15 U/L (15-37); BICARBONATE 30.1 MEQ/L (21.0-32.0); BLOOD UREA NITROGEN 14 MG/DL (7-18); CALCIUM 8.9 MG/DL (8.5-10.1); CHLORIDE 100 MEQ/L (98-107); CREATININE 0.75 MG/DL (0.50-1.00); GLOMERULAR FILTRATION RATE 78 ML/MIN (>89); GLUCOSE,RANDOM 178 MG/DL (74-106); MAGNESIUM 2.1 MG/DL (1.5-2.5); SODIUM (NA) 138 MEQ/L (136-145)
[2017-08-11 00:10] LABS: ALKALINE PHOSPHATASE 94 U/L (45-117); TOTAL BILIRUBIN ADULT 0.3 MG/DL (0.2-1.0); TROPONIN I LESS THAN 0.02 NG/ML (0.02-0.05)
[2017-08-11] MEDS ORDERED: SODIUM CHLOR 0.9% 1000 ML INJ 1,000 ML IV ONE (00:30)
[2017-08-11 01:05] LABS: BACTERIA, URINE FEW /hpf; BILIRUBIN, URINE NEG (NEG); BLOOD, URINE NEG (NEG); GLUCOSE,URINE NEG (NEG); KETONE, URINE NEG (NEG); MUCUS URINE FEW /lpf (OCC); NITRITE,URINE NEG (NEG); PH, URINE 5.5 (5.0-8.5); SQUAMOUS EPITHELIAL CELL URINE 1 /hpf (0-5); URINE COLOR YELLOW (YELLW/STRAW); URINE LEUKOCYTE ESTERASE MOD (NEG)
[2017-08-11] MEDS ORDERED: CIPROFLOXACIN 500 MG TAB PO ONE (02:45)
--- NOTE | 2017-08-11 03:10 | RADRPT ---
EXAM DATE: 08/11/2017 2:29 AM EDT AGE/SEX: 62 years / Female INDICATIONS: Abdomen pain. CLINICAL DATA: This is the patient's initial encounter. Patient reports that signs and symptoms have been present for 1 day and indicates a pain score of Nonresponsive. MEDICAL/SURGICAL HISTORY: Carcinoma, breast. Metastatic disease. Diverticulitis. Cholecystect gia. Lobectomy. Mastectomy, left. ORAL CONTRAST: No oral contrast ingested. RADIATION DOSE: 8.09 CTDI (mGy) COMPARISON: [place], CT ABDOMEN & PELVIS W CONTRAST, 08/06/2015. . TECHNIQUE: Multiple contiguous axial images were obtained through the abdomen and pelvis following b olus infusion of 95 ml Omnipaque 350 (iohexol) nonionic water-soluble contrast as a single exam dos e. No oral contrast ingested. Using automated exposure control and adjustment of the mA and/or kV ac cording to patient size, the radiation dose was kept as low as reasonably achievable to obtain optima l diagnostic quality images. FINDINGS: Lower Lungs: Volume loss and confluent opacity of the right mid to upper lung. Small right pleural ef fusion. Liver: Status post cholecystectomy. Prominence of the intrahepatic and extrahepatic biliary ducts lik louis related to the postcholecystectomy state. Common duct measures 9 mm in diameter. No focal masses identified. Spleen: Homogeneous density without enlargement. Pancreas: Unremarkable without mass or calcification. Kidneys: Normal in size and shape. No evidence of mass or hydronephrosis. Adrenal Glands: Unremarkable. Aorta: The aorta and proximal iliac vessels are grossly unremarkable without aneurysmal dilation. Bowel/Mesentery: Moderate amount of stool throughout the colon. Mildly distended mid to distal small bowel. No discrete transition point. Colonic diverticula but no evidence of acute diverticulitis. No free air or free fluid. Abdominal Wall: Intact. Retroperitoneum: No evidence of adenopathy in the retrocrural, para-aortic, or deep pelvic regions. Bladder: Contours are smooth. Reproductive Organs: No abnormal masses or calcifications seen. Inguinal: The inguinal region is unremarkable without evidence of adenopathy. Bony Structures: Facet arthrosis of the lumbar spine. Bone island in the superior acetabulum on the right and bone islands in the left femoral head. CONCLUSION: 1. No evidence of metastatic disease in the abdomen and pelvis. 2. Mild nonspecific mid to distal small bowel distention. No transition point. 3. Status post cholecystectomy. Intrahepatic and extra hepatic biliary prominence likely related to postcholecystectomy state. 4. Colonic diverticula but no evidence of acute diverticulitis. 5. Moderate amount of stool throughout the colon. 6. Lower lumbar spine facet arthrosis. Electronically signed by: Javy Hall MD 08/11/2017 3:08 AM EDT
[2017-08-11 03:25] VITALS: BP 95/64; PULSE 100; RESP 20; O2SAT 100
[2017-08-11] MEDS ORDERED: POLYETHYLENE GLYCOL 17 GM PKG PO ONE (03:45)
[2017-08-11] MEDS ORDERED: RESP: ALBUTEROL 2.5 MG/IPRATROPIUM 0.5 MG NEB (SCH) NEB ONE (06:15)
--- NOTE | 2017-08-11 14:27 | EKG ---
Date Performed: 08/10/2017 Time Performed: 22:12:10 PTAGE: 62 years EKG: SINUS TACHYCARDIA ABNORMAL RHYTHM ECG No significant change from prior electrocardiogram. PREVIOUS TRACING : 05/13/2017 17.31 DOCTOR: Pasha Lemon Interpretating Date/Time 08/11/2017 14:26:20
== END 2017-08-11 06:34 | disposition home or self-care (01) ==
LOC: NEPE 21:10
DX: C50.919 Malignant neoplasm of unspecified site of unspecified female breast (principal); C78.00 Secondary malignant neoplasm of unspecified lung; R10.32 Left lower quadrant pain; N39.0 Urinary tract infection, site not specified; E11.9 Type 2 diabetes mellitus without complications; R00.0 Tachycardia, unspecified; Z79.4 Long term (current) use of insulin; Z79.899 Other long term (current) drug therapy
CPT/HCPCS: 71045; 74177; 80053; 81001; 82550; 83605; 83690; 83735; 84484; 85025; 85610; 85730; 87086; 93005; 94664; 96361; 96374; 96375; 99285; J0780; J1642; J2270; J7030; Q9967

== ENCOUNTER 2018-01-26 06:38 | Inpatient (IN) ==
--- NOTE | 2018-01-26 06:54 | ED ---
HPI General Chief complaint: Respiratory Symptoms Stated complaint: Respiratory Time Seen by Provider: 01/26/18 06:42 Source: patient Limitations: no limitations History of Present Illness HPI narrative: The patient is a 63 year old female who presents to the [facility] emergency department with a history of shortness of breath that reportedly began last night. Upon ambulance services arrival the patient was noted to be in respiratory distress with O2 saturations in the low 80s. The patient was started on a nebulizer treatment and reportedly does have a history of COPD, however she was not improving, therefore CPAP was started. The patient was given 3 albuterol nebulizer treatments in total in route to this facility. The patient was additionally given Lasix 100 mg IV. The patient is unable to provide any significant history on arrival due to her dyspnea. She does shake her head yes to having some improvement since being placed on CPAP by ambulance services. On review of systems is limited in this patient due to her dyspnea. The patient's electronic medical record will be reviewed for her additional history. Related Data Home Medications Medication Instructions Recorded Confirmed albuterol sulfate 0.63 mg INHALATION QID 01/26/18 01/26/18 albuterol sulfate [Ventolin HFA] 2 puff INHALATION Q4-6H PRN 01/26/18 01/26/18 budesonide 0.5 mg INHALATION BID 01/26/18 01/26/18 diazepam 10 mg PO BID 01/26/18 01/26/18 levothyroxine [Synthroid] 200 mcg PO DAILY 01/26/18 01/26/18 prednisone 20 mg PO DAILY 01/26/18 01/26/18 zolpidem [Ambien] 10 mg PO HS 01/26/18 01/26/18 Allergies Allergy/AdvReac Type Severity Reaction Status Date / Time metronidazole Allergy Severe Nausea/Vomi Unverified 01/26/18 06:45 ting eribulin AdvReac Mild Itching Unverified 01/26/18 06:45 Transpore Tape Allergy Mild Rash Uncoded 01/26/18 06:45 Review of Systems ROS Unobtainable ROS Unobtainable: other (due to respiratory distress) PMFSH Medical History Medical History Anemia (Acute) Asthma (Acute) Breast cancer metastasized to lung (Acute) Diabetes (Acute) H/O: hysterectomy (Acute) Hypothyroidism (Acute) Superior vena cava syndrome (Acute) Surgical History Surgical History History of lobectomy of lung (Acute) H/O mastectomy (Acute) Hx of cholecystectomy (Acute) Social History Social History Substance History: No History of Abuse Second Hand Smoke Exposure: No Smoking Status: Never smoker Smoking End Date: quit 35 years ago. How Often Do You Have a Drink Containing Alcohol: Monthly or less Recent Travel in [facility] within the Last 8 Weeks: No Recent Out of Country Travel within the Last 8 Weeks: No Immunization History Tetanus Immunization: Unsure Exam Const General: cooperative, well developed and acute distress (due to respiratory distress) moderate Nutritional Appearance: well nourished Orientation: alert and awake HENMT Head: normocephalic and atraumatic Nose: no nasal discharge and no epistaxis Mouth: moist mucous membranes Eyes Sclera: normal sclerae Pupils: PERRL Neck Neck: no meningeal signs, trachea midline and no JVD Lymphatic: lymphedema (left side most prominent and into left upper extremity) Resp Effort & Inspection: uses accessory muscles Auscultation: no crackles, no rhonchi, wheezes and other (Decreased breath sounds in bilateral lung bases) Cardio Rate: tachycardic (Tachycardic with a heart rate in 150s) Rhythm: regular rhythm Heart Sounds: no gallops, no murmurs, no rubs and other GI Inspection: non-distended Palpation: soft, no hepatosplenomegaly, no guarding, not rigid and nontender Auscultation: normal bowel sounds Skin General: dry skin (warm) Neuro General: alert, awake and other (Grossly Nonfocal.) Speech: speech normal Motor: no movement abnormalities noted Extrem General: normal to inspection (2+ pulses in all 4 extremities.), no calf tenderness, no clubbing, no cyanosis and edema (Trace to 1+ pedal edema bilateral lower extremities.) Laterality: bilaterally Psych Mood: congruent mood Affect: normal affect Judgment: judgment good Course Initial Documented Vital Signs Temperature 98.5 F 01/26/18 06:39 Pulse Rate 130 H 01/26/18 06:39 Respiratory Rate 36 H 01/26/18 06:39 Blood Pressure 191/89 H 01/26/18 06:39 Pulse Oximetry 94 L 01/26/18 06:39 Last Documented Vital Signs Temperature 98.6 F 01/26/18 13:00 Pulse Rate 109 H 11/27/18 17:00 Respiratory Rate 20 01/26/18 17:00 Blood Pressure 202/87 H 01/26/18 17:00 Pulse Oximetry 99 01/26/18 17:00 Critical Care Time Critical Care Time: Yes Total Critical Care Time: 45 Attestation: Aggregate critical care time was 45 minutes. Time to perform other separately billable procedures was not included in the critical care time. My time did not include minutes spent treating any other patients simultaneously or on activities that did not directly contribute to the patient's treatment. The services I provided to this patient were to treat and/or prevent clinically significant deterioration that could result in: Anoxia, hypoxia, aspiration, sepsis, . I provided critical care services requiring my management, as noted below: Chart data review, documentation time, medication orders and management, vital sign assessments/reviewing monitor data, ordering and reviewing lab tests, ordering and interpreting/reviewing x-rays and diagnostic studies, care of the patient and discussion of the patient with the admitting physicians. Sign Out Sign Out Data: Patient Sign Out occurred on 01/26/18 at 07:47. Patient's care was discussed, and care was transferred from Mary Smith MD to Orlando Aguilar MD. Sign Out Comment: The patient's case was checked out to the oncoming emergency physician to disposition the patient based on the conclusion of her workup. The patient is pending laboratory studies and imaging studies. The patient presents with acute onset of shortness of breath that began in the evening. The patient is requiring BiPAP. The patient will likely require admission for continued treatment. Last updated by Mary Smith MD at 01/26/18 07:14 Post-Handoff Eval: The patient is a 63-year-old female was initially evaluated by Dr. Smith. And initially was tachycardic and hypoxic, was placed on BiPAP with a respiratory rate in the 50s. The patient received duo nebs, Lasix, and Solu-Medrol by EMS prior to arrival. The patient's chest x-ray did reveal slight shift from the left to the right, right lung findings that is slightly worsened compared to previous CT. D-dimer was positive, therefore, CT pulmonary angiogram was ordered revealing pneumonia and postoperative changes. The patient continued to be tachypneic in the 30s, but had improved. Therefore, patient was not intubated. I discussed the patient with the data warehouse administrator, Dr. Gale, who agrees with admission. The patient was covered for pneumonia with cefepime and Zithromax that she will be going to the intensive care unit. Blood cultures are pending. I did have a discussion with the patient regarding possible pathology biopsy results of the right breast, she has not had that procedure performed as of yet. Medical Decision Making MDM Narrative Medical decision making narrative: During the course of the patient's emergency department visit, the patient's history, examination, and differential diagnosis were reviewed with the patient. The patient was placed on a fabric worker fitter with oximetry and frequent blood pressure monitoring. The patient had IV access obtained and blood work sent for analysis. Diagnostic studies were started regarding the patient's shortness of breath. Respiratory therapy was at the patient's bedside and assisted with placing the patient on BiPAP The patient was initially provided with a DuoNeb x1. The patient's diagnostic studies and imaging are pending at the conclusion of my shift. The patient's case was checked out to the oncoming emergency physician to disposition the patient based on the conclusion of her workup. I anticipate that the patient will require admission. Medical Screen Exam Complete: Yes Emergency Medical Condition: Yes Differential Diagnosis Differential Diagnosis: Pneumonia, versus COPD, versus congestive heart failure , versus pneumothorax Medical Records Medical records reviewed: Yes I reviewed the patient's medical records. Lab Data Result diagrams: 01/26/18 06:50 01/26/18 06:50 Lab Results 01/26/18 01/26/18 01/26/18 Range/Units 06:50 06:50 06:50 WBC 20.9 H (4.0-11.0) th/mm3 RBC 4.25 (4.00-5.30) mil/mm3 Hgb 13.5 (11.6-15.3) gm/dL Hct 39.8 (35.0-46.0) % MCV 93.6 (80.0-100.0) fL MCH 31.8 (27.0-34.0) pg MCHC 34.0 (32.0-36.0) % RDW 14.8 (11.6-17.2) % Plt Count 251 (150-450) th/mm3 MPV 8.0 (7.0-11.0) fL Neut % (Auto) 91.6 H (16.0-70.0) % Lymph % (Auto) 4.9 L (9.0-44.0) % [place] % (Auto) 3.2 (0.0-8.0) % Eos % (Auto) 0.1 (0.0-4.0) % Baso % (Auto) 0.2 (0.0-2.0) % Neut # (Auto) 19.2 H (1.8-7.7) th/mm3 Lymph # (Auto) 1.0 (1.0-4.8) th/mm3 [place] # (Auto) 0.7 (0.0-0.9) th/mm3 Eos # (Auto) 0.0 (0.0-0.4) th/mm3 Baso # (Auto) 0.0 (0.0-0.2) th/mm3 WBC Differential . Differential Comment Auto diff final PT 10.7 (9.8-11.6) sec INR 1.1 Ratio APTT 24.1 (23.4-31.7) sec D-Dimer Quant (PE/DVT) 4.54 H (0.00-0.50) mg/L FEU Puncture Site Patient Temperature O2 Saturation (90-100) % ABG pH (7.380-7.420) ABG pCO2 (38-42) mmHg ABG pO2 (61-120) mmHg ABG HCO3 (22-26) mmol/L ABG O2 Content (12.0-20.0) Vol % ABG Base Excess (-2-2) mmol/L ABG Methemoglobin (0-2) % Luis Test Hemoglobin (12.0-16.0) G/DL Carboxyhemoglobin (0-4) % O2 Delivery Device Vent Setting Inspired O2 % Critical Value Sodium 132 L (136-145) meq/L Potassium 3.6 (3.5-5.1) meq/L Chloride 95 L (98-107) meq/L Carbon Dioxide 30.2 (21.0-32.0) meq/L Anion Gap 7 (5-15) meq/L BUN 14 (7-18) mg/dL Creatinine 0.74 (0.50-1.00) mg/dL Estimated GFR 79 L (>89) mL/min POC Glucose (68-110) mg/dl Random Glucose 277 H (74-106) mg/dL Lactic Acid (0.4-2.0) mmol/L Calcium 9.4 (8.5-10.1) mg/dL Magnesium 1.6 (1.5-2.5) mg/dL Total Bilirubin 0.7 (0.2-1.0) mg/dL AST 26 (15-37) U/L ALT 31 (10-53) U/L Alkaline Phosphatase 87 (45-117) U/L Total Creatine Kinase 92 (26-192) U/L Troponin I Less than 0.02 L (0.02-0.05) ng/mL B-Natriuretic Peptide (0-100) pg/mL Total Protein 8.5 H (6.4-8.2) g/dL Albumin 4.1 (3.4-5.0) g/dL Lipase 48 L (73-393) U/L 01/26/18 01/26/18 01/26/18 Range/Units 06:50 06:50 08:31 WBC (4.0-11.0) th/mm3 RBC (4.00-5.30) mil/mm3 Hgb (11.6-15.3) gm/dL Hct (35.0-46.0) % MCV (80.0-100.0) fL MCH (27.0-34.0) pg MCHC (32.0-36.0) % RDW (11.6-17.2) % Plt Count (150-450) th/mm3 MPV (7.0-11.0) fL Neut % (Auto) (16.0-70.0) % Lymph % (Auto) (9.0-44.0) % [place] % (Auto) (0.0-8.0) % Eos % (Auto) (0.0-4.0) % Baso % (Auto) (0.0-2.0) % Neut # (Auto) (1.8-7.7) th/mm3 Lymph # (Auto) (1.0-4.8) th/mm3 [place] # (Auto) (0.0-0.9) th/mm3 Eos # (Auto) (0.0-0.4) th/mm3 Baso # (Auto) (0.0-0.2) th/mm3 WBC Differential Differential Comment PT (9.8-11.6) sec INR Ratio APTT (23.4-31.7) sec D-Dimer Quant (PE/DVT) (0.00-0.50) mg/L FEU Puncture Site Right radial Patient Temperature 98.6 O2 Saturation 94 (90-100) % ABG pH 7.46 H (7.380-7.420) ABG pCO2 41 (38-42) mmHg ABG pO2 81 (61-120) mmHg ABG HCO3 29 H (22-26) mmol/L ABG O2 Content 16.9 (12.0-20.0) Vol % ABG Base Excess 4.9 H (-2-2) mmol/L ABG Methemoglobin 0.9 (0-2) % Luis Test Present Hemoglobin 12.8 (12.0-16.0) G/DL Carboxyhemoglobin 1.5 (0-4) % O2 Delivery Device Ventilator Vent Setting [id number] Inspired O2 60 % Critical Value No Sodium (136-145) meq/L Potassium (3.5-5.1) meq/L Chloride (98-107) meq/L Carbon Dioxide (21.0-32.0) meq/L Anion Gap (5-15) meq/L BUN (7-18) mg/dL Creatinine (0.50-1.00) mg/dL Estimated GFR (>89) mL/min POC Glucose (68-110) mg/dl Random Glucose (74-106) mg/dL Lactic Acid 1.8 (0.4-2.0) mmol/L Calcium (8.5-10.1) mg/dL Magnesium (1.5-2.5) mg/dL Total Bilirubin (0.2-1.0) mg/dL AST (15-37) U/L ALT (10-53) U/L Alkaline Phosphatase (45-117) U/L Total Creatine Kinase (26-192) U/L Troponin I (0.02-0.05) ng/mL B-Natriuretic Peptide 71 (0-100) pg/mL Total Protein (6.4-8.2) g/dL Albumin (3.4-5.0) g/dL Lipase (73-393) U/L 01/26/18 Range/Units 14:30 WBC (4.0-11.0) th/mm3 RBC (4.00-5.30) mil/mm3 Hgb (11.6-15.3) gm/dL Hct (35.0-46.0) % MCV (80.0-100.0) fL MCH (27.0-34.0) pg MCHC (32.0-36.0) % RDW (11.6-17.2) % Plt Count (150-450) th/mm3 MPV (7.0-11.0) fL Neut % (Auto) (16.0-70.0) % Lymph % (Auto) (9.0-44.0) % [place] % (Auto) (0.0-8.0) % Eos % (Auto) (0.0-4.0) % Baso % (Auto) (0.0-2.0) % Neut # (Auto) (1.8-7.7) th/mm3 Lymph # (Auto) (1.0-4.8) th/mm3 [place] # (Auto) (0.0-0.9) th/mm3 Eos # (Auto) (0.0-0.4) th/mm3 Baso # (Auto) (0.0-0.2) th/mm3 WBC Differential Differential Comment PT (9.8-11.6) sec INR Ratio APTT (23.4-31.7) sec D-Dimer Quant (PE/DVT) (0.00-0.50) mg/L FEU Puncture Site Patient Temperature O2 Saturation (90-100) % ABG pH (7.380-7.420) ABG pCO2 (38-42) mmHg ABG pO2 (61-120) mmHg ABG HCO3 (22-26) mmol/L ABG O2 Content (12.0-20.0) Vol % ABG Base Excess (-2-2) mmol/L ABG Methemoglobin (0-2) % Luis Test Hemoglobin (12.0-16.0) G/DL Carboxyhemoglobin (0-4) % O2 Delivery Device Vent Setting Inspired O2 % Critical Value Sodium (136-145) meq/L Potassium (3.5-5.1) meq/L Chloride (98-107) meq/L Carbon Dioxide (21.0-32.0) meq/L Anion Gap (5-15) meq/L BUN (7-18) mg/dL Creatinine (0.50-1.00) mg/dL Estimated GFR (>89) mL/min POC Glucose 349 H (68-110) mg/dl Random Glucose (74-106) mg/dL Lactic Acid (0.4-2.0) mmol/L Calcium (8.5-10.1) mg/dL Magnesium (1.5-2.5) mg/dL Total Bilirubin (0.2-1.0) mg/dL AST (15-37) U/L ALT (10-53) U/L Alkaline Phosphatase (45-117) U/L Total Creatine Kinase (26-192) U/L Troponin I (0.02-0.05) ng/mL B-Natriuretic Peptide (0-100) pg/mL Total Protein (6.4-8.2) g/dL Albumin (3.4-5.0) g/dL Lipase (73-393) U/L Imaging Data Radiologist's impression: Chest X-Ray 01/26/18 06:48 CONCLUSION: Worsening consolidation/volume loss on the right. The remaining portion of right lung demonstrates diffuse fibrotic change/infiltrate. Chest CTA 01/26/18 07:47 CONCLUSION: 1. Limited examination. No large or central pulmonary embolus identified. 2. Interval development of bibasilar consolidated infiltrates. Exam is concerning for a pneumonia. 3. There are surgical clips at the right lung apex suggesting the patient has undergone previous lobectomy. 4. Consolidation and parenchymal opacification at the right lung apex worsened compared to previous CT of 01/05/2018. ECG Data Attestation: I personally reviewed and interpreted this ECG as follows: Interpretation: The patient had an EKG done on arrival. The patient's EKG reveals appears to be a sinus tachycardia heart rate of 150, QRS duration 97 ms , QTC [address] segment elevation is noted, however the patient's EKG is tremulous at baseline due to her dyspnea which could be affecting interpretation. Discharge Plan Discharge Disposition Patient Disposition: 30 Still Patient Discharge Condition Condition: Serious Discharge Details Diagnosis: SOB (shortness of breath), Pneumonia, Sepsis, Pneumonitis Physicians Team ED Provider: Orlando Aguilar Primary Care Provider: UNKNOWN, Attending Provider: Yogi Osborne Other Providers: [facility],Insurance Status ED Status: Left Department Discharge Information Discharge Date/Time: 01/26/18 12:26
--- NOTE | 2018-01-26 07:23 | XR ---
EXAM DATE: 01/26/2018 7:17 AM EST AGE/SEX: 63 years / Female INDICATIONS: Short of breath CLINICAL DATA: This is the patient's initial encounter. Patient reports that signs and symptoms have been present for 1 day and indicates a pain score of Nonresponsive. MEDICAL/SURGICAL HISTORY: Non-responsive. Non-responsive. COMPARISON: [facility] [place], CHEST SINGLE AP, 08/10/2017. . FINDINGS: The examination demonstrates opacification of the right lung apex with volume loss on the right. This study is compared to previous exam of 08/10/2017. The overall amount of volume loss within the right lung has increased. There is hyperinflation of the left lung. There shift of the mediastinum from left to right. The heart is otherwise normal in size. There is an [id number] in satisfactory position. CONCLUSION: Worsening consolidation/volume loss on the right. The remaining portion of right lung demonstrates di ffuse fibrotic change/infiltrate. Electronically signed by: Thien Winston MD 01/26/2018 7:21 AM EST
[2018-01-26 07:46] LABS: Alanine Aminotransferase 31 U/L (10-53); Albumin 4.1 g/dL (3.4-5.0); Anion Gap 7 meq/L (5-15); Aspartate Aminotransferase 26 U/L (15-37); Blood Urea Nitrogen 14 mg/dL (7-18); Calcium 9.4 mg/dL (8.5-10.1); Carbon Dioxide 30.2 meq/L (21.0-32.0); Chloride 95 meq/L (98-107); Glomerular Filtration Rate 79 mL/min (>89); Glucose,Random 277 mg/dL (74-106); Lipase 48 U/L (73-393); Magnesium 1.6 mg/dL (1.5-2.5); Potassium 3.6 meq/L (3.5-5.1); Sodium 132 meq/L (136-145)
[2018-01-26 07:48] LABS: Baso % (Auto) 0.2 % (0.0-2.0); Eos % (Auto) 0.1 % (0.0-4.0); Hematocrit 39.8 % (35.0-46.0); Hemoglobin 13.5 gm/dL (11.6-15.3); Lymph % (Auto) 4.9 % (9.0-44.0); Mean Corpuscular Hemoglobin 31.8 pg (27.0-34.0); Mean Corpuscular Volume 93.6 fL (80.0-100.0); Mono # (Auto) 0.7 th/mm3 (0.0-0.9); Mono % (Auto) 3.2 % (0.0-8.0); Neut # (Auto) 19.2 th/mm3 (1.8-7.7); Neut % (Auto) 91.6 % (16.0-70.0); Platelet Count 251 th/mm3 (150-450); Red Blood Count 4.25 mil/mm3 (4.00-5.30); Red Cell Distribution Width 14.8 % (11.6-17.2); White Blood Count 20.9 th/mm3 (4.0-11.0)
[2018-01-26 07:50] LABS: Alkaline Phosphatase 87 U/L (45-117); Total Protein 8.5 g/dL (6.4-8.2)
[2018-01-26 07:51] LABS: Creatine Kinase 92 U/L (26-192)
[2018-01-26 07:58] LABS: Activated Partial Thrombo Time 24.1 sec (23.4-31.7); INR 1.1 Ratio; Prothrombin Time 10.7 sec (9.8-11.6)
[2018-01-26 07:59] LABS: D-Dimer 4.54 mg/L FEU (0.00-0.50)
[2018-01-26 08:49] LABS: ABG Base Excess 4.9 mmol/L (-2-2); ABG PCO2 41 mmHg (38-42); ABG PO2 81 mmHg (61-120)
--- NOTE | 2018-01-26 09:16 | CT ---
EXAM DATE: 01/26/2018 9:08 AM EST AGE/SEX: 63 years / Female INDICATIONS: Respiratory distress. CLINICAL DATA: This is the patient's initial encounter. Patient reports that signs and symptoms have been present for 1 day and indicates a pain score of 5/10. MEDICAL/SURGICAL HISTORY: Carcinoma, breast. Diabetes. Asthma. Lung mets. Cholecystectomy. Lo bectomy. Mastectomy. RADIATION DOSE: 11.05 CTDI (mGy) ; Patient positioning COMPARISON: [facility], CTA PULMONARY ANGIOGRAM, 01/05/2018. . TECHNIQUE: Volumetric scanning was performed using a multi-row detector CT scanner during bolus infu shivani of 70 ml Omnipaque 350 (iohexol) nonionic water-soluble contrast as a single exam dose. The christopher a was post processed with a variety of visualization algorithms including full volume maximum intensi ty projection and sliding thin slab reformation. Using automated exposure control and adjustment of the mA and/or kV according to patient size, radiation dose was kept as low as reasonably achievable t o obtain optimal diagnostic quality images. DICOM format image data is available electronically for review and comparison. FINDINGS: The examination is of limited diagnostic quality due to bolus timing. The second and third order bran ches to the right lower lobe are not well visualized. No large or central pulmonary embolus is identi fied. The heart is normal in size. There is no pericardial effusion. No significant hilar or mediastinal ad enopathy is seen. The examination demonstrates postsurgical changes with consolidation and soft tissue in the right kaylee g apex. There is increased consolidation when compared to prior exam. Today's exam also demonstrates diffuse infiltrate within the inflated portions of the right lower lobe. There is densely consolidate d, patchy infiltrates seen at the left lung base as well. These findings are concerning for a pneumon ia. They are new when compared to prior study dated 01/05/2018. The visualized bony structures demonstrate degenerative changes but are otherwise intact. CONCLUSION: 1. Limited examination. No large or central pulmonary embolus identified. 2. Interval development of bibasilar consolidated infiltrates. Exam is concerning for a pneumonia. 3. There are surgical clips at the right lung apex suggesting the patient has undergone previous lob ectomy. 4. Consolidation and parenchymal opacification at the right lung apex worsened compared to previous CT of 01/05/2018. Electronically signed by: Thien Winston MD 01/26/2018 9:15 AM EST
[2018-01-26] MEDS ORDERED: Azithromycin Inj 500 MG in Sodium Chlor 0.9% Inj 250 ML IV.SIG ONE (09:24)
[2018-01-26] MEDS ORDERED: Morphine Inj 4 MG/ML Vial IV.PUSH ONE (09:54)
[2018-01-26] MEDS ORDERED: Potassium Chlor 20 mEq Premix 20 MEQ/100 ML PIGGYBACK IV.SIG PRN ×2 (10:11)
[2018-01-26] MEDS ORDERED: Acetaminophen 325 MG Tablet PO PRN (10:11)
[2018-01-26] MEDS ORDERED: Sodium Phosphate Inj 30 MMOL in Sodium Chlor 0.9% Inj 250 ML IV.SIG PRN (10:11)
[2018-01-26] MEDS ORDERED: HYDROmorphone PF Inj 0.5 MG/0.5 ML Syringe IV.PUSH PRN (10:11)
[2018-01-26] MEDS ORDERED: Dextrose 50% in Water 50 ML Vial IV.PUSH PRN (10:11)
[2018-01-26] MEDS ORDERED: Magnesium Sulfate Inj 4 GM in Sodium Chlor 0.9% Inj 92 ML IV.SIG PRN (10:11)
[2018-01-26] MEDS ORDERED: Bisacodyl 10 MG Supp RECTAL PRN (10:11)
[2018-01-26] MEDS ORDERED: Potassium Chloride 25 MEQ Effervescent Tablet PO PRN (10:11)
[2018-01-26] MEDS ORDERED: Magnesium Sulfate Inj 2 GM in Sodium Chlor 0.9% Inj 96 ML IV.SIG PRN (10:11)
[2018-01-26] MEDS ORDERED: Potassium Phosphate Inj 30 MMOL in Sodium Chlor 0.9% Inj 250 ML IV.SIG PRN (10:11)
[2018-01-26] MEDS ORDERED: Potassium Chlor 40 mEq Premix 40 MEQ/100 ML PIGGYBACK IV.SIG PRN ×2 (10:11)
[2018-01-26] MEDS ORDERED: Magnesium Oxide 400 MG Tablet PO PRN (10:11)
[2018-01-26] MEDS ORDERED: Potassium Phosphate 500 MG Soluble Tablet PO PRN ×2 (10:11)
[2018-01-26] MEDS: MethylPREDNISolone Sod Succinate Inj 40 MG/ML Vial IV.PUSH SCH ×3 (14:17→22:04)
[2018-01-26] MEDS: Enoxaparin Inj 60 MG/0.6 ML Syringe SQ SCH (14:17)
[2018-01-26] MEDS: Sod Chloride 0.9% Inj 1,000 ML IV.CONT SCH (14:17)
[2018-01-26] MEDS: HYDROmorphone PF Inj 1 MG/ML Ampul IV.PUSH PRN ×6 (14:25→23:51)
[2018-01-26] MEDS: Insulin NovoLIN Regular Correctional Sugar Inj SQ SCH ×3 (14:37→23:45)
--- NOTE | 2018-01-26 15:36 | ECG ---
Date Performed: 01/26/2018 Time Performed: 06:50:20 PTAGE: 63 years EKG: SINUS TACHYCARDIA, POSSIBLE ATRIAL FLUTTER POSSIBLE INFERIOR MYOCARDIAL INFARCTION ABNORMAL RHYTHM ECG PREVIOUS TRACING : 08/10/2017 22.12 Since the previous tracing, no significant change noted DOCTOR: Estefania Marshall Interpretating Date/Time 01/26/2018 15:35:07
--- NOTE | 2018-01-26 20:12 | P.HPCC ---
History of Present Illness Service: Critical care medicine Primary Care Physician: UNKNOWN Chief Complaint: shortness of breath History of Present Illness: This is a 63-year-old female with a history of breast cancer and SVC syndrome, past oncologic history complicated by right lobectomy with radiation pneumonitis who presents with a 1 day history of acute shortness of breath. Per my discussion with Dr. 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 Dr. Grimaldo is usually this improves with IV steroids. Patient denies fever, chills, sputum production. She was recently on a flight from [place]. She endorses shortness of breath. She denies any changes to exercise tolerance and up until this morning could walk on flat ground without getting winded. She does endorse chest pain, but she states this is chronic and stable for which she takes 90 mg of oxycodone every 3 hours for this. She is seen by chronic pain clinic. She states that she is to be taking long-acting OxyContin but was taken off of this because of her insurance. Denies nausea, vomiting, abdominal pain, constipation, diarrhea, or any other symptoms. In the emergency department she had an elevated white blood cell count of 20,000. CT chest demonstrates fibrotic changes in the right lung field with significant volume loss. She was empirically started on cefepime and azithromycin. After discussion with Dr. Grimaldo I started her on IV Solu-Medrol. The remainder of review of systems is negative. I reevaluated the patient later in the afternoon she was weaned off of noninvasive positive pressure ventilation and was tolerating Ventimask well was no longer dyspneic and was talking in full sentences. Patient stated on my reevaluation that she felt significantly improved. Inpatient Certification: I certify that the inpatient services were ordered in accordance with Medicare regulations governing the order. This includes certification that hospital inpatient services are reasonable and necessary and in the case of services not specified as inpatient-only under 42 CFR 419.22(n), that they are appropriately provided as inpatient services in accordance to with the 2-midnight benchmark under 43 CFR 412.3(e) Estimated Total Length of Stay (Days): 4 Plans for Post Hospital Care: Not yet determined Review of Systems All other systems reviewed negative except as stated in [facility] - History History Provided By: Patient - Medical History Medical History: Medical History (Last Reviewed 01/26/18 @ 20:05 by Yogi Osborne MD) Anemia Asthma 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 - Alcohol History How Often Do You Have a Drink Containing Alcohol: Monthly or less - Substance Use History Substance History: No History of Abuse - Travel History Recent Travel in the [place] Within the Last 8 Weeks: No Recent Travel Out of the Country Within the Last 8 Weeks: No - Immunization History Tetanus Immunization: Unsure Hx Influenza Vaccine This Season: No Medications and Allergies Active Medications: Active Medications Acetaminophen (Tylenol) 650 mg PO Q6H PRN PRN Reason: TEMPERATURE > 101 F Albuterol (Duoneb Neb (Prn)) 1 ampul NEB Q2HR NEB PRN PRN Reason: WHEEZING Albuterol (Duoneb Neb (Diana)) 1 ampul NEB Q4HR NEB DIANA Last Admin: 01/26/18 20:00 Dose: 1 ampul Bisacodyl (Dulcolax Supp) 10 mg RECTAL DAILY PRN PRN Reason: if no BM in last 24h Chlorhexidine Gluconate (Chlorhexidine 2% Cloth) 3 pack TOPICAL DAILY@0400 DIANA Stop: 02/01/18 03:59 Chlorhexidine Gluconate (Chlorhexidine 2% Cloth) 3 pack TOPICAL DAILY@0400 PRN PRN Reason: Extra cloth needed Stop: 02/01/18 03:59 Dextrose (D50w Vial) 50 ml IV.PUSH UNSCH PRN PRN Reason: PER HYPOGLYCEMIA PROTOCOL Enoxaparin Sodium (Lovenox Inj) 40 mg SQ DAILY DIANA Last Admin: 01/26/18 14:17 Dose: 40 mg Famotidine (Pepcid Pf Inj) 20 mg IV.PUSH Q12HR DIANA Glucagon (Glucagon Inj) 1 mg OTHER PRN PRN PRN Reason: for Hypoglycemia Protocol Hydromorphone HCl (Dilaudid Pf Inj) 0.25 mg IV.PUSH Q1H PRN PRN Reason: pain 8-10 or not taking po Last Admin: 01/26/18 19:37 Dose: 0.25 mg Azithromycin 500 mg/ Sodium (Chloride) 250 mls @ 250 mls/hr IV.SIG ONCE ONE Stop: 01/27/18 10:59 Cefepime HCl 2,000 mg/ Sodium (Chloride) 100 mls @ 200 mls/hr IV.SIG Q8H DIANA Last Infusion: 01/26/18 17:47 Dose: Infused Magnesium Sulfate 4 gm/ Sodium (Chloride) 100 mls @ 50 mls/hr IV.SIG UNSCH PRN PRN Reason: For Magnesium 0.9 - 1.1 mg/dL Magnesium Sulfate 2 gm/ Sodium (Chloride) 100 mls @ 50 mls/hr IV.SIG UNSCH PRN PRN Reason: For Magnesium 1.2 - 1.6 mg/dL Sodium Chloride (Ns Inj) 1,000 mls @ 84 mls/hr IV.CONT .[id number] [facility] Last Admin: 01/26/18 14:17 Dose: 84 mls/hr Potassium Chloride (Kcl 40 Meq Premix Inj) 40 meq in 100 mls @ 25 mls/hr IV.SIG Q2H PRN PRN Reason: For Potassium 2.8 - 3.2 mEq/L Potassium Chloride (Kcl 20 Meq Premix Inj) 20 meq in 100 mls @ 50 mls/hr IV.SIG Q2H PRN PRN Reason: For Potassium 3.3 - 3.5 mEq/L Potassium Chloride (Kcl 40 Meq Premix Inj) 40 meq in 100 mls @ 25 mls/hr IV.SIG UNSCH PRN PRN Reason: For Potassium 3.3 - 3.5 mEq/L Potassium Chloride (Kcl 20 Meq Premix Inj) 20 meq in 100 mls @ 50 mls/hr IV.SIG Q2H PRN PRN Reason: For Potassium 2.8 - 3.2 mEq/L Potassium Phosphate 30 mmol/ (Sodium Chloride) 260 mls @ 42 mls/hr IV.SIG UNSCH PRN PRN Reason: SEE LABEL COMMENTS Sodium Phosphate 30 mmol/ (Sodium Chloride) 260 mls @ 42 mls/hr IV.SIG UNSCH PRN PRN Reason: For Phosphorus < 2.5 mg/dL Insulin Human Regular (Novolin R Correctional Sugar Inj) 0 units SQ Q6HR DIANA; Protocol Last Admin: 01/26/18 19:39 Dose: 4 units Lactulose (Lactulose Liq) 30 ml PO BID DIANA Magnesium Oxide (Mag-Ox) 800 mg PO UNSCH PRN PRN Reason: For Magnesium 1.2 - 1.6 mg/dL Methylprednisolone Sodium Succinate (Solumedrol Inj) 40 mg IV.PUSH Q6H DIANA Last Admin: 01/26/18 17:16 Dose: 40 mg Ondansetron HCl (Zofran Inj) 4 mg IV.PUSH Q6H PRN PRN Reason: NAUSEA OR VOMITING Oxycodone HCl (Roxicodone) 5 mg PO Q4H PRN PRN Reason: Pain 1-5 Last Admin: 01/26/18 17:51 Dose: 5 mg Polyethylene Glycol (Miralax) 17 gm PO BID DIANA Potassium Bicarb/Potassium Chloride (K-Lyte Cl Eff) 50 meq PO UNSCH PRN PRN Reason: For Potassium 3.3 - 3.5 mEq/L Potassium Phosphate (K-Phos Original) 2,000 mg PO Q4H PRN PRN Reason: Phosphorus Less Than 2.5 mg/dL Potassium Phosphate (K-Phos Original) 2,000 mg PO UNSCH PRN PRN Reason: SEE LABEL COMMENTS Senna/Docusate Sodium (Tiffanie-Colace) 1 tab PO BID [facility] Sodium Chloride (Ns Flush) 2 ml IV.FLUSH UNSCH PRN PRN Reason: FLUSH AFTER USING IV ACCESS Last Admin: 01/26/18 09:52 Dose: 2 ml Sodium Chloride (Ns Flush) 2 ml IV.FLUSH UNSCH PRN PRN Reason: FLUSH AFTER USING IV ACCESS Allergies Allergy/AdvReac Type Severity Reaction Status Date / Time metronidazole Allergy Severe Nausea/Vomi Unverified 01/26/18 06:45 ting eribulin AdvReac Mild Itching Unverified 01/26/18 06:45 Transpore Tape Allergy Mild Rash Uncoded 01/26/18 06:45 Home Medications Medication Instructions Recorded Confirmed Type albuterol sulfate 0.63 mg INHALATION QID 01/26/18 01/26/18 History albuterol sulfate [Ventolin HFA] 2 puff INHALATION Q4-6H PRN 01/26/18 01/26/18 History budesonide 0.5 mg INHALATION BID 01/26/18 01/26/18 History diazepam 10 mg PO BID 01/26/18 01/26/18 History levothyroxine [Synthroid] 200 mcg PO DAILY 01/26/18 01/26/18 History prednisone 20 mg PO DAILY 01/26/18 01/26/18 History zolpidem [Ambien] 10 mg PO HS 01/26/18 01/26/18 History Results - Labs CBC & Chem 7: 01/26/18 06:50 01/26/18 06:50 Labs: Short CBC 01/26/18 Range/Units 06:50 WBC 20.9 H (4.0-11.0) th/mm3 Hgb 13.5 (11.6-15.3) gm/dL Hct 39.8 (35.0-46.0) % Plt Count 251 (150-450) th/mm3 BMP 01/26/18 06:50 Sodium 132 L Potassium 3.6 Chloride 95 L Carbon Dioxide 30.2 BUN 14 Creatinine 0.74 Calcium 9.4 Cardiac Enzymes 01/26/18 Range/Units 06:50 Total Creatine Kinase 92 (26-192) U/L Troponin I Less than 0.02 L (0.02-0.05) ng/mL Liver Function 01/26/18 Range/Units 06:50 Total Bilirubin 0.7 (0.2-1.0) mg/dL AST 26 (15-37) U/L ALT 31 (10-53) U/L Alkaline Phosphatase 87 (45-117) U/L Albumin 4.1 (3.4-5.0) g/dL - Imaging Impressions Chest X-Ray 01/26/18 06:48 CONCLUSION: Worsening consolidation/volume loss on the right. The remaining portion of right lung demonstrates diffuse fibrotic change/infiltrate. Chest CTA 01/26/18 07:47 CONCLUSION: 1. Limited examination. No large or central pulmonary embolus identified. 2. Interval development of bibasilar consolidated infiltrates. Exam is concerning for a pneumonia. 3. There are surgical clips at the right lung apex suggesting the patient has undergone previous lobectomy. 4. Consolidation and parenchymal opacification at the right lung apex worsened compared to previous CT of 01/05/2018. Exam Vital signs: Vital Signs 01/26/18 06:39 01/26/18 06:50 01/26/18 07:03 Temperature 36.9 C Pulse Rate 130 H 150 H 151 H Respiratory Rate 36 H 46 H 24 Blood Pressure 191/89 H 168/72 H Pulse Oximetry 94 L 95 01/26/18 07:07 01/26/18 07:37 01/26/18 08:07 Temperature Pulse Rate 141 H 135 H 132 H Respiratory Rate 43 H 45 H 33 H Blood Pressure 152/61 H 144/58 H 163/67 H Pulse Oximetry 95 97 96 01/26/18 08:37 01/26/18 09:09 01/26/18 10:13 Temperature Pulse Rate 130 H 127 H 67 Respiratory Rate 32 H 26 H 16 Blood Pressure 159/67 H 161/72 H 201/90 H Pulse Oximetry 97 99 01/26/18 10:31 01/26/18 11:10 01/26/18 13:00 Temperature 37.0 C Pulse Rate 126 H 122 H 120 H Respiratory Rate 27 H 16 Blood Pressure 161/80 H 128/64 Pulse Oximetry 98 99 01/26/18 14:00 01/26/18 14:03 01/26/18 14:51 Temperature Pulse Rate 117 H 119 H Respiratory Rate 21 21 Blood Pressure 142/72 H Pulse Oximetry 98 98 01/26/18 15:00 01/26/18 16:00 01/26/18 17:00 Temperature Pulse Rate 120 H 109 H 109 H Respiratory Rate 19 20 20 Blood Pressure 196/89 H 159/72 H 202/87 H Pulse Oximetry 100 97 99 01/26/18 18:00 Temperature Pulse Rate 108 H Respiratory Rate 20 Blood Pressure 202/87 H Pulse Oximetry 96 Intake & Output 01/26/18 01/26/18 01/27/18 06:59 18:59 06:59 Intake Total 450 / 450 Output Total 1900 / 1900 Balance -1450 / -1450 Weight 75 kg 75.5 kg Intake: IV 450 / 450 Azithromycin Inj 500 MG In NS 250 / 250 Inj 250 ML @ 250 mls/hr IV.SIG ONCE ONE Rx#:[id number] Maxipime Inj 2,000 MG In NS Inj 200 / 200 100 ML @ 200 mls/hr IV.SIG Q8H DIANA Rx#:[id number] Output: Urine Amount (Catheter) 1899 Indwelling Urethral Catheter 1899 Other: # Incontinent Bowel Movements 1 Weight On Admission 75.5 kg Narrative: GENERAL: Middle-age female, lying in bed, no acute distress HEENT: Normocephalic. Atraumatic. Pupils equal, round, reactive, conjugate. Mucous membranes are moist NECK: Trachea is midline. There is no JVD. CHEST: Equal chest rise. 60% Ventimask in place. SPO2 96%. Unlabored. CARDIOVASCULAR: Normal rate, regular rhythm. Sinus. ABDOMEN: Soft, nontender, nondistended. No guarding. MUSCULOSKELETAL: Pulses 2+. No peripheral edema. NEUROLOGICAL: RASS 0. CAM -. Follows commands. No focal deficits. Septic Shock Reassessment Septic shock perfusion: reassessment completed Caprini VTE Risk Assessment Caprini VTE Risk Assessment: Moderate/High Risk (score >= 2) Caprini Risk Assessment Model: Point Value = 1 Point Value = 2 Point Value = 3 Point Value = 5 Age 41-60 Minor surgery BMI > 25 kg/m2 Swollen legs Varicose veins or History of unexplained or recurrent spontaneous Oral contraceptives or hormone replacement Sepsis (< 1 month) Serious lung disease, including pneumonia (< 1 month) Abnormal pulmonary function Acute myocardial infarction Congestive heart failure (< 1 month) History of inflammatory bowel disease Medical patient at bed rest Age 61-74 Arthroscopic surgery Major open surgery (> 45 min) Laparoscopic surgery (> 45 min) Malignancy Confined to bed (> 72 hours) Immobilizing plaster cast Central venous access Age >= 75 History of VTE Family history of VTE Factor V Leiden Prothrombin [id number] Lupus anticoagulant Anticardiolipin antibodies Elevated serum homocysteine Heparin-induced thrombocytopenia Other congenital or acquired thrombophilia Stroke (< 1 month) Elective arthroplasty Hip, pelvis, or leg fracture Acute spinal cord injury (< 1 month) Prophylaxis Regimen: Total Risk Factor Score Risk Level Prophylaxis Regimen 0-1 Low Early ambulation 2 Moderate Order ONE of the following: *Sequential Compression Device (SCD) *Heparin 5000 units SQ BID 3-4 Higher Order ONE of the following medications: *Heparin 5000 units SQ TID *Enoxaparin/Lovenox 40 mg SQ daily (WT < 150 kg, CrCl > 30 mL/min) *Enoxaparin/Lovenox 30 mg SQ daily (WT < 150 kg, CrCl > 10-29 mL/min) *Enoxaparin/Lovenox 30 mg SQ BID (WT < 150 kg, CrCl > 30 mL/min) AND/OR *Sequential Compression Device (SCD) 5 or more Highest Order ONE of the following medications: *Heparin 5000 units SQ TID (Preferred with Epidurals) *Enoxaparin/Lovenox 40 mg SQ daily (WT < 150 kg, CrCl > 30 mL/min) *Enoxaparin/Lovenox 30 mg SQ daily (WT < 150 kg, CrCl > 10-29 mL/min) *Enoxaparin/Lovenox 30 mg SQ BID (WT < 150 kg, CrCl > 30 mL/min) AND *Sequential Compression Device (SCD) Assessment and Plan - Assessment and Plan Plan: Assessment: 63-year-old female with prior history of breast cancer, now in remission, with residual SVC syndrome, chronic lymphedema, and residual radiation pneumonitis/fibrotic changes in the right lung field. Given the clinical history, it is less likely this is infectious but more likely that this is an exacerbation of her chronic fibrotic lung disease. This improved with steroids and his improving today with IV steroids. We will continue her on IV steroids. Given that she is recent travel, I think it is prudent given her acute hypoxemia to cover her empirically with antibiotics and test for influenza and send a sputum culture, blood cultures. If these are all negative , I would de-escalate antibiotic therapy at 48 hours. If she remains stable in the intensive care unit overnight, I think we can safely transfer out of the ICU in the morning. Acute hypoxemia Exacerbation of chronic underlying lung disease Possible community acquired pneumonia - iv steroids - nebs - wean o2 for goal spo2 > 90% - continue cefepime, azithromycin - influenza swab - check urine histo, legionella, pneumococcal Ag - sputum culture, blood cultures History of breast cancer - followed extensively by Dr. Grimaldo - will ask oncology to follow along Chronic pain syndrome - takes oxycodone 90mg po q4h - will drop total dosage by 25%: 405mg/day - will split this into oxycontin 80mg q8h and oxycodone 20mg po q4h prn. advance diet as tolerated SCDs Lovenox pepcid H&P: Quality - VTE Deep Vein Thrombosis/Pulmonary Embolism Present on Admission: No
[2018-01-26] MEDS: Polyethylene Glycol 3350 17 GM Packet PO SCH ×2 (21:26→21:34)
[2018-01-26] MEDS: Famotidine PF Inj 20 MG/2 ML Vial IV.PUSH SCH (21:26)
[2018-01-26] MEDS: Senna/Docusate Sodium 8.6/50 MG Tablet PO SCH ×2 (21:27→21:34)
[2018-01-26] MEDS ORDERED: Heparin Central Flush 100 UNIT/ML 5 ML Vial IV.FLUSH PRN (21:32)
[2018-01-26] MEDS: oxyCODONE HCL 80 MG Controlled Release Tablet PO SCH (21:32)
--- NOTE | 2018-01-27 00:41 | MB ---
cc: Yasemin Grimaldo MD,Yogi Lee MD DATE: 01/26/2018 REFERRING PHYSICIAN: Rohit Osborne MD CHIEF COMPLAINT: Dr. Osborne requests a consultation for Mrs. Beavers regarding a history of metastatic/metaplastic breast cancer. HISTORY OF PRESENT ILLNESS: Mrs. Beavers is a 63-year-old woman, a well known patient, with a history of metastatic/metaplastic breast cancer, initially diagnosed in 2008. She has progressed on multiple lines of chemotherapy. Finally, she received radiation and Halaven for right upper lung mass with superior vena cava syndrome. She was placed on Halaven maintenance. Ultimately, Halaven was discontinued due to toxicity related to the chemotherapy. Her last dose of Halaven was 06/26/2017. She has had several staging evaluations since then. We reviewed a CT PET scan on 08/27/[address] scan in October and December that shows no evidence of recurrent or metastatic disease. More recently, a CT scan was performed for nonspecific right-sided chest pain with some pleuritic-like symptoms. The CT angiogram was negative for pulmonary embolism. Small pericardial effusion was noted. She has chronic opacification of the right upper hemithorax with volume loss in the right upper hemithorax. There is no acute infiltrate or pulmonary congestion. Her symptoms are related to the pneumonitis or the collapse of the right upper lung. She has had a history of SVC syndrome and new collaterals that have developed. She has had increasing right chest wall edema leading to a right breast biopsy. The right breast skin biopsy was benign. She is under the care of online banking specialist. She has been on and off steroids in addition to oxygen supplement. She was last seen in clinic on 01/05/2018 for acute symptoms. She felt well enough to travel to visit family in [place]. She describes a difficult travel back, missing their connection. She walked up the gangway and became extremely short of breath. She did not bring oxygen on her trip. She remained short of breath throughout until presenting to the emergency room with acute symptoms. She was evaluated by Mary Smith, consulted the insurance executive for her respiratory symptoms. She was placed on BiPAP. She was seen by Dr. Osborne and was transferred to the ICU. CT angiogram from the emergency room was negative for pulmonary embolism. The findings show interval development of bibasilar consolidated infiltrate, which is new. There is consolidation opacification of the right lung apex compared to the previous scan. There is no pulmonary embolism identified. She was seen in consultation towards the late evening. She is off BiPAP at this point. She feels better. She denies any chest pain or shortness of breath at rest. She has an IV on the right arm and blood pressure drawn on the left leg. Her MediPort has not been accessed as yet. PAST MEDICAL HISTORY: Hypothyroidism, hyperglycemia/diabetes type 2, asthma, chronic pain, left breast cancer, right upper lung metastatic lesion status post radiation. PAST SURGICAL HISTORY: Tubal ligation, tonsillectomy, right upper lung lobectomy, left breast mastectomy, knee surgery, hysterectomy, cholecystectomy, colonoscopy, port placement. FAMILY HISTORY: No significant family history of breast cancer. Both parents are at old age. 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 She denies any tobacco or illicit drug use. ALLERGIES: FLAGYL. CURRENT MEDICATIONS: 1. Albuterol. 2. Azithromycin. 3. Dulcolax. 4. Cefepime. 5. Enoxaparin. 6. Famotidine. 7. Dilaudid p.r.n. 8. Lactulose. 9. Methylprednisolone. 10. OxyContin. PHYSICAL EXAMINATION: VITAL SIGNS: Temperature 98.6, heart rate 107, respiratory rate 20, blood pressure 202/87, saturation 97% on 50% FiO2, Ventimask. GENERAL: Mrs. Beavers is a well-developed, well-nourished woman. HEENT: Her pupils are round and reactive to light and accommodation. Oropharynx is clear. NECK: Supple. LUNGS: Diminished breath sounds and rhonchi of the right lung field. CARDIOVASCULAR: Reveals tachycardia. ABDOMEN: Benign. EXTREMITIES: Lower extremities with trace edema. Good pulses. Left arm lymphedema is unchanged. NEUROLOGIC: Nonfocal. CHEST: Right chest wall MediPort. LABORATORY DATA: Significant for leukocytosis. Hemoglobin, hematocrit, and platelet count are normal. D-dimer is elevated. PT, PTT are normal. Chemistry is significant for hyperglycemia with glucose of 248. BUN and creatinine are normal. Total protein is slightly elevated. Sodium 132. ASSESSMENT AND PLAN: Mrs. Beavers is a 63-year-old woman with multiple medical problems. She has history of metastatic/metaplastic breast cancer. She has had definitive treatment with radiation in the right upper lung recurrence. Course is complicated by superior vena cava syndrome and right upper lung pneumonitis post radiation therapy. A lengthy discussion with Dr. Osborne regarding her past history and limitations of her lung post treatment of her metastatic breast cancer. She has chronic opacification of the right upper lung, as well as the superior vena cava syndrome. She is managed well and has had no evidence of recurrence since stopping her chemotherapy in May of this year. She remains in remission, but has difficulty with regard to symptoms related to the right upper lung. She is admitted with possibly new infiltrates. She started on antibiotic therapy and required respiratory support. Her symptoms have improved. No specific therapy is required from oncology standpoint. So far, there has been no evidence of recurrent or metastatic disease. The right upper lung pneumonitis is unchanged and continues to limit her performance status. Treatment for the pneumonitis and possible pneumonia has been initiated. Hematology/Oncology will follow during her hospitalization. MD DU Bain/declan , 11:46 PM , 12:03 AM
[2018-01-27] MEDS: HYDROmorphone PF Inj 1 MG/ML Ampul IV.PUSH PRN ×5 (02:32→23:02)
[2018-01-27] MEDS: Sod Chloride 0.9% Inj 1,000 ML IV.CONT SCH ×2 (02:34→12:25)
--- NOTE | 2018-01-27 03:23 | XR ---
EXAM DATE: 01/27/2018 3:18 AM EST AGE/SEX: 63 years / Female INDICATIONS: Atelectasis. CLINICAL DATA: This is the patient's subsequent encounter. Patient reports that signs and symptoms h ave been present for 2 days and indicates a pain score of Nonresponsive. MEDICAL/SURGICAL HISTORY: . Cardiovascular disease. Carcinoma, breast. . Mastectomy, left. Lob ectomy, right COMPARISON: [facility] [place], CHEST 1V SINGLE AP, 01/26/2018. . FINDINGS: Right-sided port in superior vena cava. Stable pleural parenchymal opacity at the right apex. No new infiltrate or effusion. No pneumothorax. CONCLUSION: Stable exam compared with January 26. Electronically signed by: Dago Pollock MD 01/27/2018 3:22 AM EST
[2018-01-27] MEDS ORDERED: Chlorhexidine Gluconate 2% 1 Pack (2 Cloths) TOPICAL PRN (04:00)
[2018-01-27] MEDS: Chlorhexidine Gluconate 2% 1 Pack (2 Cloths) TOPICAL SCH (04:05)
[2018-01-27] MEDS: MethylPREDNISolone Sod Succinate Inj 40 MG/ML Vial IV.PUSH SCH ×4 (04:05→23:01)
[2018-01-27 04:28] LABS: Baso % (Auto) 0.1 % (0.0-2.0); Hemoglobin 11.8 gm/dL (11.6-15.3); Lymph # (Auto) 0.3 th/mm3 (1.0-4.8); Mean Corpuscular HGB Conc 35.7 % (32.0-36.0); Mean Corpuscular Hemoglobin 32.8 pg (27.0-34.0); Mean Corpuscular Volume 92.1 fL (80.0-100.0); Mono # (Auto) 0.3 th/mm3 (0.0-0.9); Mono % (Auto) 2.1 % (0.0-8.0); Neut % (Auto) 95.8 % (16.0-70.0); Platelet Count 182 th/mm3 (150-450); Red Blood Count 3.59 mil/mm3 (4.00-5.30); Red Cell Distribution Width 14.3 % (11.6-17.2); White Blood Count 16.7 th/mm3 (4.0-11.0)
[2018-01-27 04:53] LABS: Anion Gap 4 meq/L (5-15); Blood Urea Nitrogen 18 mg/dL (7-18); Calcium 8.7 mg/dL (8.5-10.1); Carbon Dioxide 31.4 meq/L (21.0-32.0); Chloride 101 meq/L (98-107); Glomerular Filtration Rate Greater Than 89 mL/min (>89); Glucose,Random 209 mg/dL (74-106); Magnesium 1.9 mg/dL (1.5-2.5); Phosphorus 3.1 mg/dL (2.5-4.9); Sodium 136 meq/L (136-145)
[2018-01-27] MEDS: oxyCODONE HCL 80 MG Controlled Release Tablet PO SCH ×3 (06:02→21:00)
[2018-01-27] MEDS: Insulin NovoLIN Regular Correctional Sugar Inj SQ SCH ×4 (06:03→23:12)
[2018-01-27] MEDS: Enoxaparin Inj 60 MG/0.6 ML Syringe SQ SCH (09:06)
[2018-01-27] MEDS: Senna/Docusate Sodium 8.6/50 MG Tablet PO SCH ×2 (09:07→20:59)
[2018-01-27] MEDS: Famotidine PF Inj 20 MG/2 ML Vial IV.PUSH SCH ×2 (09:07→20:58)
[2018-01-27] MEDS: Polyethylene Glycol 3350 17 GM Packet PO SCH ×2 (09:07→20:59)
[2018-01-27] MEDS ORDERED: Azithromycin Inj 500 MG in Sodium Chlor 0.9% Inj 250 ML IV.SIG ONE (10:00)
--- NOTE | 2018-01-27 10:07 | P.PN ---
Subjective Interval history: Follow-up pneumonia. Improving shortness of breath currently on Ventimask. Was able to get out of bed with PT earlier today. Chronic chest and abdominal pain. She is followed by Dr. Lee on prednisone 20 mg daily Physical Exam Vital signs: Vital Signs 01/26/18 10:12 01/26/18 10:13 01/26/18 10:31 Temperature 98.0 F Pulse Rate 99 H 67 126 H Respiratory Rate 16 16 Blood Pressure 132/66 201/90 H 161/80 H Pulse Oximetry 100 99 98 01/26/18 11:10 01/26/18 13:00 01/26/18 14:00 Temperature 98.6 F Pulse Rate 122 H 120 H 117 H Respiratory Rate 27 H 16 21 Blood Pressure 128/64 142/72 H Pulse Oximetry 99 98 01/26/18 14:03 01/26/18 14:51 01/26/18 15:00 Temperature Pulse Rate 119 H 120 H Respiratory Rate 21 19 Blood Pressure 196/89 H Pulse Oximetry 98 100 01/26/18 16:00 01/26/18 17:00 01/26/18 18:00 Temperature Pulse Rate 109 H 109 H 108 H Respiratory Rate 20 20 20 Blood Pressure 159/72 H 202/87 H 202/87 H Pulse Oximetry 97 99 96 01/26/18 19:00 01/26/18 20:00 01/26/18 20:03 Temperature 98.5 F Pulse Rate 105 H 104 H 107 H Respiratory Rate 20 19 20 Blood Pressure 202/87 H 161/70 H Pulse Oximetry 97 97 97 01/26/18 21:00 01/26/18 22:00 01/26/18 23:00 Temperature Pulse Rate 102 H 100 H 100 H Respiratory Rate 17 16 16 Blood Pressure 159/68 H 155/67 H 168/74 H Pulse Oximetry 95 97 97 01/27/18 00:00 01/27/18 00:02 01/27/18 01:00 Temperature 98.4 F Pulse Rate 98 H 98 H 99 H Respiratory Rate 14 16 20 Blood Pressure 156/69 H 124/58 L Pulse Oximetry 97 95 01/27/18 02:00 01/27/18 03:00 01/27/18 04:00 Temperature 98.7 F Pulse Rate 93 H 92 H 102 H Respiratory Rate 15 15 18 Blood Pressure 120/56 L 126/63 125/59 L Pulse Oximetry 94 L 96 96 01/27/18 05:00 01/27/18 06:00 01/27/18 08:00 Temperature Pulse Rate 95 H 92 H 93 H Respiratory Rate 16 16 14 Blood Pressure 111/56 L 112/66 Pulse Oximetry 96 96 96 Intake & Output 01/26/18 01/27/18 01/27/18 18:59 06:59 18:59 Intake Total 450 / 450 1100 / 1100 Output Total 1900 / 1900 375 / 375 Balance -1450 / -1450 725 / 725 Weight 75.5 kg 78.5 kg Intake: IV 450 / 450 1100 / 1100 NS Inj 1,000 ML @ 84 mls/hr IV. 1000 / 1000 CONT .[id number] [facility] Rx#:[id number] Azithromycin Inj 500 MG In NS 250 / 250 Inj 250 ML @ 250 mls/hr IV.SIG ONCE ONE Rx#:[id number] Maxipime Inj 2,000 MG In NS Inj 200 / 200 100 / 100 100 ML @ 200 mls/hr IV.SIG Q8H [facility] Rx#:[id number] Oral 0 / 0 Output: Urine Amount (Catheter) 1900 / 1900 375 / 375 Indwelling Urethral Catheter 1900 / 1900 375 / 375 Other: # Bowel Movements 0 # Incontinent Bowel Movements 1 Weight On Admission 75.5 kg Narrative: GENERAL: Middle-age female, lying in bed on VM HEENT: Normocephalic. Atraumatic. Pupils equal, round, reactive, conjugate. Mucous membranes are moist CHEST: Equal chest rise. Unlabored. CARDIOVASCULAR: Normal rate, regular rhythm. Sinus. ABDOMEN: Soft, nontender, nondistended. No guarding. MUSCULOSKELETAL: Pulses 2+. No peripheral edema. NEUROLOGICAL: RASS 0. CAM -. Follows commands. No focal deficits. - Urinary Catheter Management Indwelling Urethral Catheter Cath placed during this visit: yes Reason for continuing: Hourly intake/output Insertion date: 01/26/18 Insertion time: 06:50 Results - Labs CBC & Chem 7: 01/27/18 03:28 01/27/18 03:28 Laboratory Results - last 24 hr 01/26/18 01/26/18 01/27/18 14:30 23:26 03:28 WBC 16.7 H RBC 3.59 L Hgb 11.8 Hct 33.0 L MCV 92.1 MCH 32.8 MCHC 35.7 RDW 14.3 Plt Count 182 MPV 8.0 Neut % (Auto) 95.8 H Lymph % (Auto) 2.0 L Mcminn % (Auto) 2.1 Eos % (Auto) 0.0 Baso % (Auto) 0.1 Neut # (Auto) 16.0 H Lymph # (Auto) 0.3 L Mcminn # (Auto) 0.3 Eos # (Auto) 0.0 Baso # (Auto) 0.0 WBC Differential . Differential Comment Auto diff final Sodium Potassium Chloride Carbon Dioxide Anion Gap BUN Creatinine Estimated GFR POC Glucose 349 H 248 H Random Glucose Calcium Phosphorus Magnesium 01/27/18 01/27/18 03:28 05:27 WBC RBC Hgb Hct MCV MCH MCHC RDW Plt Count MPV Neut % (Auto) Lymph % (Auto) Mcminn % (Auto) Eos % (Auto) Baso % (Auto) Neut # (Auto) Lymph # (Auto) Mcminn # (Auto) Eos # (Auto) Baso # (Auto) WBC Differential Differential Comment Sodium 136 Potassium 4.0 Chloride 101 Carbon Dioxide 31.4 Anion Gap 4 L BUN 18 Creatinine 0.62 Estimated GFR Greater than 89 POC Glucose 207 H Random Glucose 209 H Calcium 8.7 Phosphorus 3.1 Magnesium 1.9 - Imaging ITS Impressions Chest CTA 01/26/18 07:47 CONCLUSION: 1. Limited examination. No large or central pulmonary embolus identified. 2. Interval development of bibasilar consolidated infiltrates. Exam is concerning for a pneumonia. 3. There are surgical clips at the right lung apex suggesting the patient has undergone previous lobectomy. 4. Consolidation and parenchymal opacification at the right lung apex worsened compared to previous CT of 01/05/2018. Chest X-Ray 01/27/18 05:00 CONCLUSION: Stable exam compared with January 26. - Procedures none Assessment and Plan - Plan 63-year-old female with prior history of breast cancer, now in remission, with residual SVC syndrome, chronic lymphedema, and 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 Acute hypoxemia Exacerbation of chronic underlying lung disease Possible community acquired pneumonia with sepsis - iv steroids - nebs - wean o2 for goal spo2 > 90% - continue cefepime, azithromycin - influenza swab - check urine histo, legionella, pneumococcal Ag - sputum culture, blood cultures - Physical therapy increase activity as tolerated History of breast cancer - followed extensively by Dr. Grimaldo - will ask oncology to follow along Chronic pain syndrome - takes oxycodone 90mg po q4h - will drop total dosage by 25%: 405mg/day - will split this into oxycontin 80mg q8h and oxycodone 20mg po q4h prn. Hyperglycemia on steroids history of diabetes mellitus latest A1c 7 -Monitor fingersticks with sliding scale coverage advance diet as tolerated SCDs Deanna gore Discharge Planning: If she continues to improve will transfer to [facility]
--- NOTE | 2018-01-27 18:58 | MB ---
cc: Jose Lee MD DATE: 01/27/2018 HISTORY OF PRESENT ILLNESS: She has chronic fibrotic changes and radiation changes in the right upper lobe. She gets frequent flare-ups and requires steroid treatment. The patient has home oxygen, but has not been using. She has been maintained on supplemental she was being maintained on prednisone 20 mg a day. When the dose of the prednisone was decreased, her symptoms flare up. Recently, she went to [place]. She was trying to catch a flight from [place]. She was supposed to meet the wheelchair people. She got laid, could not get the wheelchair, and ran to the ramp. By the time she reached up there, she was having significant shortness of breath and discomfort in her chest. She ended up missing the flight and stayed on the airport for 7 hours. She settled down while she was flying and came home around midnight. She went to sleep on the couch and 3 o'clock, she woke up with shortness of breath. She tried to calm herself, took some breathing treatment, took her prednisone. By 05:30, her breathing was getting worse and she asked her to call the EMS. The patient was brought to the emergency room. She had a workup done. She had a CTA of the chest done. It did not show any pulmonary embolism. It shows fibrotic changes in the right upper lobe and has bibasilar consolidation and persistent opacification in the right upper lobe. Her CBC showed WBC count of 16.7, hemoglobin 11.8, hematocrit 33, MCV 92, platelet count 182. Blood gas showed pH 7.46, pCO2 of 41, pO2 of 84, bicarbonate 29, saturation 94%. Sodium 136, potassium 4.0, chloride 101, CO2 of 31, BUN 18, creatinine 0.62. The patient was admitted in the intensive care unit. She will use BiPAP with significant improvement. Now, she is weaned down to nasal cannula and is transferred to the floor. Now, she feels her breathing is significantly better, feels comfortable. Has cough, no sputum production, no fever. PAST MEDICAL HISTORY: Significant for CA of the breast, status post chemotherapy, radiation treatment, cholecystectomy, hysterectomy, tonsillectomy, radiation pneumonitis. MEDICATIONS: 1. Oxycodone for pain. 2. Potassium supplement. 3. Ambien 10 mg at nighttime as needed. ALLERGIES: SHE IS ALLERGIC TO METRONIDAZOLE AND ERIBULIN. PHYSICAL EXAMINATION: CHEST: She has decreased breath sounds on the right side, has rales on the right upper chest and has a few scattered rhonchi. HEART: S1, S2 normal. ABDOMEN: Soft, nondistended. Bowel sounds are present. EXTREMITIES: No edema. CENTRAL NERVOUS SYSTEM: She is alert, oriented x3. No focal deficit. IMPRESSION: 1. Respiratory insufficiency. She has significant improvement. 2. Right upper lobe chronic opacification due to radiation and fibrotic changes. 3. Bibasilar lung infiltrate. 4. History of cancer of the breast, status post multiple lines of treatment. PLAN: I discussed with the patient. Continue antibiotics, cefepime and Zithromax. Aerosol treatment. Continue IV Solu-Medrol, supplemental oxygen. Monitor her CBC. Further treatment pending the course in the hospital. Thank you Dr. Grimaldo for this consult. MD XAVIER Carbone/wolf/emelina , 05:47 PM , 05:58 PM [email or web address]
[2018-01-28] MEDS: Sod Chloride 0.9% Inj 1,000 ML IV.CONT SCH ×4 (01:04→22:07)
[2018-01-28] MEDS: Chlorhexidine Gluconate 2% 1 Pack (2 Cloths) TOPICAL SCH (04:17)
[2018-01-28] MEDS: MethylPREDNISolone Sod Succinate Inj 40 MG/ML Vial IV.PUSH SCH ×3 (04:26→18:00)
[2018-01-28] MEDS: HYDROmorphone PF Inj 1 MG/ML Ampul IV.PUSH PRN (04:38)
[2018-01-28] MEDS: oxyCODONE HCL 80 MG Controlled Release Tablet PO SCH ×3 (06:39→21:37)
[2018-01-28] MEDS: Insulin NovoLIN Regular Correctional Sugar Inj SQ SCH ×4 (06:47→23:45)
--- NOTE | 2018-01-28 08:30 | P.DCO ---
- Diagnosis (1) Pneumonia Status: Acute - Physical Therapy Order: Evaluate and treat, Improve ambulation, Strength and gait training - Case Management Consult Case Management Consult-Home Health: Yes - Certification I have seen patient Noelle Beavers on 01/28/18. My clinical findings support the need for the requested home health care services because: Patient has SOB I certify that my clinical findings support that this patient is homebound because: Hx COPD - exertion dyspnea/weakness (1) Pneumonia Qualifiers: Pneumonia type: due to unspecified organism Laterality: unspecified laterality Lung location: unspecified part of lung Qualified Code(s): J18.9 - Pneumonia, unspecified organism
--- NOTE | 2018-01-28 08:35 | P.PN ---
Subjective Interval history: Follow-up COPD and pneumonia. Discussed with pulmonary yesterday. Oxygen down to 2 L. Patient has oxygen at home as needed. States she has not used oxygen for several months. Complains of chest pain which is chronic but worse secondary to coughing. Physical Exam Vital signs: Vital Signs 01/27/18 09:00 01/27/18 11:47 01/27/18 12:00 Temperature 98.5 F Pulse Rate 100 H 101 H 102 H Respiratory Rate 15 22 15 Blood Pressure 141/62 H 143/67 H Pulse Oximetry 98 96 01/27/18 16:00 01/27/18 17:00 01/27/18 19:10 Temperature 98.6 F 98.4 F Pulse Rate 104 H 113 H 103 H Respiratory Rate 16 18 18 Blood Pressure 139/64 106/64 Pulse Oximetry 96 100 99 01/27/18 20:00 01/28/18 00:00 01/28/18 04:00 Temperature 98.5 F 97.9 F 97.7 F Pulse Rate 110 H 105 H 91 H Respiratory Rate 18 18 18 Blood Pressure 114/63 100/56 L 121/74 Pulse Oximetry 99 98 99 Intake & Output 01/27/18 01/28/18 01/28/18 18:59 06:59 18:59 Intake Total 1350 / 1350 2080 / 2080 Output Total 200 / 200 Balance 1350 / 1350 1880 / 1880 Weight 78.5 kg Intake: IV 1350 / 1350 1100 / 1100 NS Inj 1,000 ML @ 84 mls/hr IV. 900 / 900 1000 / 1000 CONT .[id number] [facility] Rx#:[id number] Azithromycin Inj 500 MG In NS 250 / 250 Inj 250 ML @ 250 mls/hr IV.SIG ONCE ONE Rx#:[id number] Maxipime Inj 2,000 MG In NS Inj 200 / 200 100 / 100 100 ML @ 200 mls/hr IV.SIG Q8H [facility] Rx#:[id number] Oral 980 / 980 Output: Urine 200 / 200 Narrative: GENERAL: Middle-age female, lying in bed on nasal cannula HEENT: Normocephalic. Atraumatic. Pupils equal, round, reactive, conjugate. Mucous membranes are moist CHEST: Equal chest rise. Unlabored. Decreased breath sounds left lung. Scattered rhonchi right lung CARDIOVASCULAR: Normal rate, regular rhythm. Sinus. ABDOMEN: Soft, nontender, nondistended. No guarding. MUSCULOSKELETAL: Pulses 2+. No peripheral edema. NEUROLOGICAL: RASS 0. CAM -. Follows commands. No focal deficits. - Urinary Catheter Management Indwelling Urethral Catheter Cath placed during this visit: yes, but has since been removed by the nurse Reason for continuing: Decision to DC catheter Insertion date: 01/26/18 Insertion time: 06:50 Removal date: 01/27/18 Removal time: 16:15 Results - Labs CBC & Chem 7: 01/27/18 03:28 01/27/18 03:28 Laboratory Results - last 24 hr 01/27/18 01/27/18 01/27/18 12:16 17:46 23:00 POC Glucose 240 H 213 H 260 H 01/28/18 06:37 POC Glucose 221 H Microbiology 01/26/18 06:45 Blood - Peripheral Aerobic Blood Culture - Preliminary No growth in 1 day 01/26/18 06:45 Blood - Peripheral Anaerobic Blood Culture - Preliminary No growth in 1 day 01/26/18 06:50 Blood - Peripheral Aerobic Blood Culture - Preliminary No growth in 1 day 01/26/18 06:50 Blood - Peripheral Anaerobic Blood Culture - Preliminary No growth in 1 day - Imaging ITS Impressions Chest CTA 01/26/18 07:47 CONCLUSION: 1. Limited examination. No large or central pulmonary embolus identified. 2. Interval development of bibasilar consolidated infiltrates. Exam is concerning for a pneumonia. 3. There are surgical clips at the right lung apex suggesting the patient has undergone previous lobectomy. 4. Consolidation and parenchymal opacification at the right lung apex worsened compared to previous CT of 01/05/2018. Chest X-Ray 01/27/18 05:00 CONCLUSION: Stable exam compared with January 26. - Procedures none Assessment and Plan - Assessment (1) Pneumonia Code(s): J18.9 - Pneumonia, unspecified organism Status: Acute - Plan 63-year-old female with prior history of breast cancer, now in remission, with residual SVC syndrome, chronic lymphedema, and 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 Acute hypoxemia. Improving Exacerbation of chronic underlying lung disease Possible community acquired pneumonia with sepsis - Wean iv steroids - nebs - wean o2 for goal spo2 > 90% - continue cefepime, azithromycin - influenza swab, nursing requested to submit specimen - check urine histo, legionella, pneumococcal Ag - sputum culture, blood cultures - Physical therapy increase activity as tolerated History of breast cancer - followed extensively by Dr. Grimaldo - will ask oncology to follow along Chronic pain syndrome - takes oxycodone 90mg po 4-5x a day - will split this into oxycontin 80mg q8h and oxycodone 20mg po q4h prn. Adjust IV dilaudid to .5 q 6h prn for severe pain Hyperglycemia on steroids history of diabetes mellitus latest A1c 7 -Monitor fingersticks with sliding scale coverage advance diet as tolerated SCDs Lovenox pepcid Discharge Planning: Will need home health care physical therapy and may be oxygen. D when cleared by pulmo (1) Pneumonia Qualifiers: Pneumonia type: due to unspecified organism Laterality: unspecified laterality Lung location: unspecified part of lung Qualified Code(s): J18.9 - Pneumonia, unspecified organism
[2018-01-28] MEDS: Enoxaparin Inj 60 MG/0.6 ML Syringe SQ SCH ×2 (09:30→09:47)
[2018-01-28] MEDS: Polyethylene Glycol 3350 17 GM Packet PO SCH ×2 (09:46→20:29)
[2018-01-28] MEDS: Senna/Docusate Sodium 8.6/50 MG Tablet PO SCH ×2 (09:47→20:29)
[2018-01-28] MEDS ORDERED: Azithromycin Inj 500 MG in Sodium Chlor 0.9% Inj 250 ML IV.SIG ONE (10:13)
[2018-01-28] MEDS ORDERED: HYDROmorphone PF Inj 1 MG/ML Ampul IV.PUSH PRN (10:43)
--- NOTE | 2018-01-28 14:01 | P.PNONC ---
Subjective Interval history: Feels she is not ready yet. She still has difficulty ambulating in the room. She is able to transfer to a commode. She was presented at our multidisciplinary thoracic conference. There are acute changes in both lung during this admission compared to CT scan 2 weeks earlier. This is suspected to be community-acquired pneumonia. She decompensated as she has compromise of the sclerotic right upper lung. Objective Vital Signs/Intake & Output: Vital Signs 01/27/18 16:00 01/27/18 17:00 01/27/18 19:10 Temperature 98.6 F 98.4 F Pulse Rate 104 H 113 H 103 H Respiratory Rate 16 18 18 Blood Pressure 139/64 106/64 Pulse Oximetry 96 100 99 01/27/18 20:00 01/28/18 00:00 01/28/18 04:00 Temperature 98.5 F 97.9 F 97.7 F Pulse Rate 110 H 105 H 91 H Respiratory Rate 18 18 18 Blood Pressure 114/63 100/56 L 121/74 Pulse Oximetry 99 98 99 01/28/18 08:00 01/28/18 08:45 01/28/18 12:00 Temperature 97.5 F L 97.6 F Pulse Rate 93 H 93 H 112 H Respiratory Rate 21 16 20 Blood Pressure 128/84 130/80 Pulse Oximetry 94 L 98 97 01/28/18 12:10 Temperature Pulse Rate 108 H Respiratory Rate 18 Blood Pressure Pulse Oximetry Intake & Output 01/27/18 01/28/18 01/28/18 18:59 06:59 18:59 Intake Total 1350 / 1350 2080 / 2080 100 / 100 Output Total 200 / 200 Balance 1350 / 1350 1880 / 1880 100 / 100 Weight 78.5 kg Intake: IV 1350 / 1350 1100 / 1100 100 / 100 NS Inj 1,000 ML @ 84 mls/hr IV. 900 / 900 1000 / 1000 CONT .[id number] [facility] Rx#:[id number] Azithromycin Inj 500 MG In NS 250 / 250 Inj 250 ML @ 250 mls/hr IV.SIG ONCE ONE Rx#:[id number] Maxipime Inj 2,000 MG In NS Inj 200 / 200 100 / 100 100 / 100 100 ML @ 200 mls/hr IV.SIG Q8H [facility] Rx#:[id number] Oral 980 / 980 Output: Urine 200 / 200 Result Diagrams: 01/27/18 03:28 01/27/18 03:28 Laboratory Results: Laboratory Results - last 24 hr 01/27/18 01/27/18 01/28/18 17:46 23:00 06:37 POC Glucose 213 H 260 H 221 H 01/28/18 13:06 POC Glucose 254 H Culture Results: Microbiology 01/26/18 06:45 Aerobic Blood Culture - Preliminary Blood - Peripheral No growth in 2 days Anaerobic Blood Culture - Preliminary No growth in 2 days 01/26/18 06:50 Aerobic Blood Culture - Preliminary Blood - Peripheral No growth in 2 days Anaerobic Blood Culture - Preliminary No growth in 2 days Medications: Active Medications Generic Name Dose Route Start Last Admin Trade Name Freq PRN Reason Stop Dose Admin Albuterol 1 ampul 01/26/18 12:00 01/28/18 12:09 Duoneb Neb ([facility]) NEB 1 ampul Q4HR [facility] Administration Budesonide 0.5 mg 01/27/18 21:00 01/28/18 08:43 Pulmocort Respule Neb NEB 0.5 mg BID [facility] Administration Chlorhexidine Gluconate 3 pack 01/27/18 04:00 01/28/18 04:17 Chlorhexidine 2% Cloth TOPICAL 02/01/18 03:59 Not Given DAILY@0400 [facility] Enoxaparin Sodium 40 mg 01/26/18 11:13 01/28/18 09:30 Lovenox Inj SQ 40 mg DAILY [facility] Administration Cefepime HCl 2,000 mg/ Sodium 100 mls @ 200 mls/hr 01/26/18 18:00 01/28/18 12 :28 Chloride IV.SIG Infused Q8H [facility] Infusion Sodium Chloride 1,000 mls @ 84 mls/hr 01/26/18 10:15 01/28/18 11:59 Ns Inj IV.CONT 84 mls/hr .[id number] [facility] Administration Insulin Human Regular 0 units 01/26/18 12:00 01/28/18 13:21 Novolin R Correctional Sugar Inj SQ 7 units Q6HR [facility] Administration Protocol Lactulose 30 ml 01/26/18 21:00 01/28/18 09:46 Lactulose Liq PO Not Given BID [facility] Levothyroxine Sodium 200 mcg 01/28/18 06:00 01/28/18 06:40 Synthroid PO 200 mcg DAILY@0600 [facility] Administration Methylprednisolone Sodium Succinate 20 mg 01/28/18 11:00 01/28/18 11:58 Solumedrol Inj IV.PUSH 20 mg Q8H [facility] Administration Ondansetron HCl 4 mg 01/26/18 10:11 01/27/18 12:24 Zofran Inj IV.PUSH 4 mg Q6H PRN Administration NAUSEA OR VOMITING Oxycodone HCl 80 mg 01/26/18 22:00 01/28/18 06:39 Oxycontin Cr PO 80 mg Q8HR [facility] Administration Polyethylene Glycol 17 gm 01/26/18 21:00 01/28/18 09:46 Miralax PO 17 gm BID [facility] Administration Senna/Docusate Sodium 1 tab 01/26/18 21:00 01/28/18 09:47 Tiffanie-Colace PO 1 tab BID [facility] Administration Sodium Chloride 2 ml 01/26/18 06:48 01/26/18 09:52 Ns Flush IV.FLUSH 2 ml UNSCH PRN Administration FLUSH AFTER USING IV ACCESS Zolpidem Tartrate 10 mg 01/27/18 21:00 01/27/18 20:58 Ambien PO 10 mg HS [facility] Administration Objective Remarks: GENERAL: Well-nourished, heavyset. Well-developed patient. SKIN: Warm and dry. Left arm lymphedema HEAD: Normocephalic. EYES: No scleral icterus. No injection or drainage. NECK: Supple, trachea midline. No JVD or lymphadenopathy. LYMPHATIC: No adenopathy. CARDIOVASCULAR: Regular rate and rhythm without murmurs. RESPIRATORY: Coarse rhonchi both lungs. No accessory muscle use. GASTROINTESTINAL: Abdomen soft, non-tender, nondistended. EXTREMITIES: No cyanosis, or edema. MUSCULOSKELETAL: Adequate muscle tone. NEUROLOGICAL: No obvious focal deficit. Awake, alert, and oriented x3. PSYCHIATRIC: Appropriate mood and affect; insight and judgment normal. Assessment/Plan (1) Metastatic breast cancer Code(s): C50.919 - Malignant neoplasm of unspecified site of unspecified female breast Status: Chronic (2) Chronic pain due to malignant neoplastic disease Code(s): G89.3 - Neoplasm related pain (acute) (chronic) Status: Chronic (3) Anxiety Code(s): F41.9 - Anxiety disorder, unspecified Status: Chronic - Plan 63-year-old woman well-known patient with history of metastatic/metaplastic breast cancer. She had a right upper lung recurrence that was treated with chemotherapy and radiation. She was maintained on maintenance chemotherapy [place] for several years until stopping due to toxicity May of this year. Her last CT scan of the chest shows no evidence of recurrent or metastatic disease. She is admitted with new infiltrates bilaterally suggestive of infectious etiology. She had recent travel to visit family and delay in her connection. Her recent exacerbation was precipitated by the travel back. She feels better after antibiotic therapy is initiated on breathing treatment. Her pulmonary status will need to be optimized. Her pulley man Dr. Lee will be consulted. Physical therapy to assess her functional status before discharge home. Patient has a history of chronic pain. She is managed by chronic pain specialist in [place]. She has a high degree of tolerance. Her breakthrough medication will be adjusted. Anxiety is well controlled. Transferred to oncology floor when bed available.
--- NOTE | 2018-01-28 18:37 | P.PNPL ---
Subjective Interval history: 63 YOWF with Ca breast, RUL fibrotic infilt, SOB Breathing better On 02 2LNC Ambulates Gets headaches Uses Ibuprofen 800 mg prn at home Physical Exam Vital signs: Vital Signs 01/27/18 19:10 01/27/18 20:00 01/28/18 00:00 Temperature 98.5 F 97.9 F Pulse Rate 103 H 110 H 105 H Respiratory Rate 18 18 18 Blood Pressure 114/63 100/56 L Pulse Oximetry 99 99 98 01/28/18 04:00 01/28/18 08:00 01/28/18 08:45 Temperature 97.7 F 97.5 F L Pulse Rate 91 H 93 H 93 H Respiratory Rate 18 21 16 Blood Pressure 121/74 128/84 Pulse Oximetry 99 94 L 98 01/28/18 12:00 01/28/18 12:10 01/28/18 15:18 Temperature 97.6 F Pulse Rate 112 H 108 H Respiratory Rate 20 18 Blood Pressure 130/80 Pulse Oximetry 97 97 01/28/18 15:19 01/28/18 15:48 01/28/18 16:00 Temperature 98.4 F Pulse Rate 105 H 107 H Respiratory Rate 20 18 22 Blood Pressure 119/70 Pulse Oximetry 94 L Intake & Output 01/27/18 01/28/18 01/28/18 18:59 06:59 18:59 Intake Total 1350 / 1350 2080 / 2080 1050 / 1050 Output Total 200 / 200 Balance 1350 / 1350 1880 / 1880 1050 / 1050 Weight 78.5 kg Intake: IV 1350 / 1350 1100 / 1100 350 / 350 NS Inj 1,000 ML @ 84 mls/hr IV. 900 / 900 1000 / 1000 CONT .[id number] [facility] Rx#:[id number] Azithromycin Inj 500 MG In NS 250 / 250 250 / 250 Inj 250 ML @ 250 mls/hr IV.SIG ONCE ONE Rx#:[id number] Maxipime Inj 2,000 MG In NS Inj 200 / 200 100 / 100 100 / 100 100 ML @ 200 mls/hr IV.SIG Q8H [facility] Rx#:[id number] Oral 980 / 980 700 / 700 Output: Urine 200 / 200 Other: # Voids 2 # Bowel Movements 0 GENERAL: MBMN NAD SKIN: Warm and dry. HEAD: Normocephalic. EYES: No scleral icterus. No injection or drainage. NECK: Supple, trachea midline. No JVD or lymphadenopathy. CARDIOVASCULAR: Regular rate and rhythm without murmurs, gallops, or rubs. RESPIRATORY: Breath sounds equal bilaterally. No accessory muscle use. GASTROINTESTINAL: Abdomen soft, non-tender, nondistended. MUSCULOSKELETAL: No cyanosis, or edema. BACK: Nontender without obvious deformity. No CVA tenderness. - Urinary Catheter Management Indwelling Urethral Catheter Cath placed during this visit: yes, but has since been removed by the nurse Reason for continuing: Decision to DC catheter Insertion date: 01/26/18 Insertion time: 06:50 Removal date: 01/27/18 Removal time: 16:15 Assessment and Plan - Plan IMPRESSION: 1. Respiratory insufficiency. She has significant improvement. 2. Right upper lobe chronic opacification due to radiation and fibrotic changes. 3. Bibasilar lung infiltrate. 4. History of cancer of the breast, status post multiple lines of treatment. 5. Headache PLAN: Cont Abx DC Solumedrol Prednisone 20 mg po bid Supplement 02 Ibuprofen 800 mg po PC prn headache per pt's request
[2018-01-28] MEDS: Famotidine 20 MG Tablet PO SCH (20:29)
[2018-01-28] MEDS: predniSONE 10 MG Tablet PO SCH (20:30)
[2018-01-28] MEDS: HYDROmorphone PF Inj 2 MG/ML Vial IV.PUSH PRN (21:35)
[2018-01-29] MEDS: HYDROmorphone PF Inj 2 MG/ML Vial IV.PUSH PRN ×5 (01:38→20:43)
[2018-01-29] MEDS: Chlorhexidine Gluconate 2% 1 Pack (2 Cloths) TOPICAL SCH (05:28)
[2018-01-29] MEDS: oxyCODONE HCL 80 MG Controlled Release Tablet PO SCH ×3 (05:29→22:25)
[2018-01-29] MEDS: Insulin NovoLIN Regular Correctional Sugar Inj SQ SCH ×3 (05:40→18:29)
[2018-01-29] MEDS: Polyethylene Glycol 3350 17 GM Packet PO SCH ×2 (09:04→22:25)
[2018-01-29] MEDS: predniSONE 10 MG Tablet PO SCH ×2 (09:04→22:25)
[2018-01-29] MEDS: Senna/Docusate Sodium 8.6/50 MG Tablet PO SCH ×2 (09:04→22:26)
[2018-01-29] MEDS: Enoxaparin Inj 60 MG/0.6 ML Syringe SQ SCH (09:05)
[2018-01-29] MEDS: Sod Chloride 0.9% Inj 1,000 ML IV.CONT SCH (09:06)
--- NOTE | 2018-01-29 09:36 | P.PN ---
Physical Exam Vital signs: Vital Signs 01/28/18 12:00 01/28/18 12:10 01/28/18 15:18 Temperature 97.6 F Pulse Rate 112 H 108 H Respiratory Rate 20 18 Blood Pressure 130/80 Pulse Oximetry 97 97 01/28/18 15:19 01/28/18 15:48 01/28/18 16:00 Temperature 98.4 F Pulse Rate 105 H 107 H Respiratory Rate 20 18 22 Blood Pressure 119/70 Pulse Oximetry 94 L 01/28/18 20:00 01/28/18 20:18 01/28/18 23:01 Temperature 98.1 F Pulse Rate 101 H 107 H 102 H Respiratory Rate 20 22 18 Blood Pressure 158/91 H Pulse Oximetry 99 01/29/18 00:00 01/29/18 02:14 01/29/18 05:26 Temperature 97.7 F 98.0 F Pulse Rate 103 H 88 Respiratory Rate 20 18 18 Blood Pressure 144/86 H 140/79 Pulse Oximetry 96 98 01/29/18 09:05 Temperature Pulse Rate Respiratory Rate 18 Blood Pressure Pulse Oximetry Intake & Output 01/28/18 01/29/18 01/29/18 18:59 06:59 18:59 Intake Total 1050 / 1050 1480 / 1480 200 / 200 Output Total 450 / 450 Balance 1050 / 1050 1030 / 1030 200 / 200 Weight 80.1 kg Intake: IV 350 / 350 1200 / 1200 200 / 200 NS Inj 1,000 ML @ 84 mls/hr IV. 1000 / 1000 200 / 200 CONT .[id number] [facility] Rx#:[id number] Azithromycin Inj 500 MG In NS 250 / 250 Inj 250 ML @ 250 mls/hr IV.SIG ONCE ONE Rx#:[id number] Maxipime Inj 2,000 MG In NS Inj 100 / 100 200 / 200 100 ML @ 200 mls/hr IV.SIG Q8H [facility] Rx#:[id number] Oral 700 / 700 280 / 280 Output: Urine 450 / 450 Other: # Voids 2 Date of Last Bowel Movement 01/26/18 # Bowel Movements 0 - Urinary Catheter Management Indwelling Urethral Catheter Cath placed during this visit: yes, but has since been removed by the nurse Reason for continuing: Decision to DC catheter Insertion date: 01/26/18 Insertion time: 06:50 Removal date: 01/27/18 Removal time: 16:15 Results - Labs CBC & Chem 7: 01/27/18 03:28 01/27/18 03:28 Laboratory Results - last 24 hr 01/28/18 01/28/18 01/28/18 13:06 17:27 23:39 POC Glucose 254 H 266 H 258 H 01/29/18 05:28 POC Glucose 206 H Microbiology 01/26/18 06:45 Blood - Peripheral Aerobic Blood Culture - Preliminary No growth in 2 days 01/26/18 06:45 Blood - Peripheral Anaerobic Blood Culture - Preliminary No growth in 2 days 01/26/18 06:50 Blood - Peripheral Aerobic Blood Culture - Preliminary No growth in 2 days 01/26/18 06:50 Blood - Peripheral Anaerobic Blood Culture - Preliminary No growth in 2 days - Procedures none Assessment and Plan - Assessment (1) Pneumonia Code(s): J18.9 - Pneumonia, unspecified organism Status: Acute - Plan 63-year-old female with prior history of breast cancer, now in remission, with residual SVC syndrome, chronic lymphedema, and 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 Acute hypoxemia. Improving Exacerbation of chronic underlying lung disease Possible community acquired pneumonia with sepsis - Wean iv steroids - nebs - wean o2 for goal spo2 > 90% - continue cefepime, azithromycin - influenza swab, nursing requested to submit specimen - check urine histo, legionella, pneumococcal Ag - sputum culture, blood cultures - Physical therapy increase activity as tolerated History of breast cancer - followed extensively by Dr. Grimaldo - will ask oncology to follow along Chronic pain syndrome - takes oxycodone 90mg po 4-5x a day - will split this into oxycontin 80mg q8h and oxycodone 20mg po q4h prn. Adjust IV dilaudid to .5 q 6h prn for severe pain Hyperglycemia on steroids history of diabetes mellitus latest A1c 7 -Monitor fingersticks with sliding scale coverage advance diet as tolerated SCDs Lovenox pepcid Discharge Planning: Will need home health care physical therapy and may be oxygen. D when cleared by pulmo (1) Pneumonia Qualifiers: Pneumonia type: due to unspecified organism Laterality: unspecified laterality Lung location: unspecified part of lung Qualified Code(s): J18.9 - Pneumonia, unspecified organism
--- NOTE | 2018-01-29 12:04 | P.PNPL ---
Subjective Interval history: 63 YOWF with Ca breast, RUL fibrotic infilt, SOB Breathing better On 02 2LNC Ambulates Feels weak, but breathing better Physical Exam Vital signs: Vital Signs 01/28/18 12:10 01/28/18 15:18 01/28/18 15:19 Temperature Pulse Rate 108 H 105 H Respiratory Rate 18 20 Blood Pressure Pulse Oximetry 97 01/28/18 15:48 01/28/18 16:00 01/28/18 20:00 Temperature 98.4 F 98.1 F Pulse Rate 107 H 101 H Respiratory Rate 18 22 20 Blood Pressure 119/70 158/91 H Pulse Oximetry 94 L 99 01/28/18 20:18 01/28/18 23:01 01/29/18 00:00 Temperature 97.7 F Pulse Rate 107 H 102 H 103 H Respiratory Rate 22 18 20 Blood Pressure 144/86 H Pulse Oximetry 96 01/29/18 02:14 01/29/18 05:26 01/29/18 08:00 Temperature 98.0 F 98.5 F Pulse Rate 88 98 H Respiratory Rate 18 18 18 Blood Pressure 140/79 138/75 Pulse Oximetry 98 98 01/29/18 09:05 Temperature Pulse Rate Respiratory Rate 18 Blood Pressure Pulse Oximetry Intake & Output 01/28/18 01/29/18 01/29/18 18:59 06:59 18:59 Intake Total 1050 / 1050 1480 / 1480 300 / 300 Output Total 450 / 450 Balance 1050 / 1050 1030 / 1030 300 / 300 Weight 80.1 kg Intake: IV 350 / 350 1200 / 1200 300 / 300 NS Inj 1,000 ML @ 84 mls/hr IV. 1000 / 1000 200 / 200 CONT .[id number] [facility] Rx#:[id number] Azithromycin Inj 500 MG In NS 250 / 250 Inj 250 ML @ 250 mls/hr IV.SIG ONCE ONE Rx#:[id number] Maxipime Inj 2,000 MG In NS Inj 100 / 100 200 / 200 100 / 100 100 ML @ 200 mls/hr IV.SIG Q8H [facility] Rx#:[id number] Oral 700 / 700 280 / 280 Output: Urine 450 / 450 Other: # Voids 2 Date of Last Bowel Movement 01/26/18 # Bowel Movements 0 GENERAL: MBMN NAD SKIN: Warm and dry. HEAD: Normocephalic. EYES: No scleral icterus. No injection or drainage. NECK: Supple, trachea midline. No JVD or lymphadenopathy. CARDIOVASCULAR: Regular rate and rhythm without murmurs, gallops, or rubs. RESPIRATORY: Breath sounds equal bilaterally. No accessory muscle use. GASTROINTESTINAL: Abdomen soft, non-tender, nondistended. MUSCULOSKELETAL: No cyanosis, or edema. BACK: Nontender without obvious deformity. No CVA tenderness. - Urinary Catheter Management Indwelling Urethral Catheter Cath placed during this visit: yes, but has since been removed by the nurse Reason for continuing: Decision to DC catheter Insertion date: 01/26/18 Insertion time: 06:50 Removal date: 01/27/18 Removal time: 16:15 Assessment and Plan - Plan IMPRESSION: 1. Respiratory insufficiency. She has significant improvement. 2. Right upper lobe chronic opacification due to radiation and fibrotic changes. 3. Bibasilar lung infiltrate. 4. History of cancer of the breast, status post multiple lines of treatment. 5. Headache PLAN: Cont Abx Prednisone 20 mg po bid Supplement 02 Ibuprofen 800 mg po PC prn headache per pt's request DC plans for home Will FU in office 1 week.
[2018-01-29 12:31] LABS: Histoplasma Antigen Result Negative (Negative); Histoplasma Antigen Value 0 ng/mL
--- NOTE | 2018-01-29 14:57 | P.DS ---
Date of admission: 01/26/18 10:10 Primary care physician: UNKNOWN Anticipated date of discharge: 01/30/18 Brief History from admission: This is a 63-year-old female with a history of breast cancer and SVC syndrome, past oncologic history complicated by right lobectomy with radiation pneumonitis who presents with a 1 day history of acute shortness of breath. Per my discussion with Dr. 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 Dr. Grimaldo is usually this improves with IV steroids. Patient denies fever, chills, sputum production. She was recently on a flight from [place]. She endorses shortness of breath. She denies any changes to exercise tolerance and up until this morning could walk on flat ground without getting winded. She does endorse chest pain, but she states this is chronic and stable for which she takes 90 mg of oxycodone every 3 hours for this. She is seen by chronic pain clinic. She states that she is to be taking long-acting OxyContin but was taken off of this because of her insurance. Denies nausea, vomiting, abdominal pain, constipation, diarrhea, or any other symptoms. In the emergency department she had an elevated white blood cell count of 20,000. CT chest demonstrates fibrotic changes in the right lung field with significant volume loss. She was empirically started on cefepime and azithromycin. After discussion with Dr. Grimaldo I started her on IV Solu-Medrol. The remainder of review of systems is negative. I reevaluated the patient later in the afternoon she was weaned off of noninvasive positive pressure ventilation and was tolerating Ventimask well was no longer dyspneic and was talking in full sentences. Patient stated on my reevaluation that she felt significantly improved. DS: Diagnosis - Discharge Diagnosis (1) Pneumonia Status: Acute DS: Medications - Discharge Medications Prescriptions: amoxicillin-pot clavulanate [Augmentin] 1 tab PO Q12H #10 tab DS: Summary Hospital Course: 63-year-old female with prior history of breast cancer, now in remission, with residual SVC syndrome, chronic lymphedema, and 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 Acute hypoxemia. Improving Exacerbation of chronic underlying lung disease. Improved with good exercise tolerance Community acquired pneumonia with sepsis. Stable resolved sepsis - Wean po steroids - nebs - wean o2 for goal spo2 > 90% - Discontinue cefepime, azithromycin switch to p.o. Augmentin - influenza swab, nursing requested to submit specimen - Negative urine histo, legionella, pneumococcal Ag - Ordered sputum culture, negative blood cultures - Physical therapy increase activity as tolerated History of breast cancer - followed extensively by Dr. Grimaldo Chronic pain syndrome - takes oxycodone 90mg po 4-5x a day - will split this into oxycontin 80mg q8h and oxycodone 20mg po q4h prn. Adjust IV dilaudid to .5 q 6h prn for severe pain Hyperglycemia on steroids history of diabetes mellitus latest A1c 7 -Monitor fingersticks with sliding scale coverage advance diet as tolerated SCDs Lovenox pepcid - Time Spent with Patient Total time spent providing and/or coordinating discharge services: Greater than 30 minutes - Quality: VTE Deep Vein Thrombosis/Pulmonary Embolism Present on Admission: No Exam Vital signs: Vital Signs 01/28/18 15:18 01/28/18 15:19 01/28/18 15:48 Temperature Pulse Rate 105 H Respiratory Rate 20 18 Blood Pressure Pulse Oximetry 97 01/28/18 16:00 01/28/18 20:00 01/28/18 20:18 Temperature 98.4 F 98.1 F Pulse Rate 107 H 101 H 107 H Respiratory Rate 22 20 22 Blood Pressure 119/70 158/91 H Pulse Oximetry 94 L 99 01/28/18 23:01 01/29/18 00:00 01/29/18 02:14 Temperature 97.7 F Pulse Rate 102 H 103 H Respiratory Rate 18 20 18 Blood Pressure 144/86 H Pulse Oximetry 96 01/29/18 05:26 01/29/18 08:00 01/29/18 09:05 Temperature 98.0 F 98.5 F Pulse Rate 88 98 H Respiratory Rate 18 18 18 Blood Pressure 140/79 138/75 Pulse Oximetry 98 98 01/29/18 12:00 01/29/18 12:04 Temperature 97.6 F Pulse Rate 103 H 103 H Respiratory Rate 18 16 Blood Pressure 141/87 H Pulse Oximetry 95 98 Intake & Output 01/28/18 01/29/18 01/29/18 18:59 06:59 18:59 Intake Total 1050 / 1050 1480 / 1480 300 / 300 Output Total 450 / 450 Balance 1050 / 1050 1030 / 1030 300 / 300 Weight 80.1 kg Intake: IV 350 / 350 1200 / 1200 300 / 300 NS Inj 1,000 ML @ 84 mls/hr IV. 1000 / 1000 200 / 200 CONT .[id number] [facility] Rx#:[id number] Azithromycin Inj 500 MG In NS 250 / 250 Inj 250 ML @ 250 mls/hr IV.SIG ONCE ONE Rx#:[id number] Maxipime Inj 2,000 MG In NS Inj 100 / 100 200 / 200 100 / 100 100 ML @ 200 mls/hr IV.SIG Q8H [facility] Rx#:[id number] Oral 700 / 700 280 / 280 Output: Urine 450 / 450 Other: # Voids 2 Date of Last Bowel Movement 01/26/18 # Bowel Movements 0 Narrative: GENERAL: Middle-age female, lying in bed on nasal cannula HEENT: Normocephalic. Atraumatic. Pupils equal, round, reactive, conjugate. Mucous membranes are moist CHEST: Equal chest rise. Unlabored. Decreased breath sounds left lung. Scattered rhonchi right lung CARDIOVASCULAR: Normal rate, regular rhythm. Sinus. ABDOMEN: Soft, nontender, nondistended. No guarding. MUSCULOSKELETAL: Pulses 2+. No peripheral edema. NEUROLOGICAL: RASS 0. CAM -. Follows commands. No focal deficits. Results Procedures completed during hospitalization: none Labs on day of discharge: Labs from last 24 hours 01/29/18 01/29/18 01/28/18 12:52 05:28 23:39 POC Glucose 150 H 206 H 258 H Urine Histoplasma Ag U Histoplasma Ag Detec 01/28/18 01/27/18 17:27 12:30 POC Glucose 266 H Urine Histoplasma Ag 0 U Histoplasma Ag Detec Negative Preliminary micro results at discharge 01/26/18 06:45 Aerobic Blood Culture - Preliminary Blood - Peripheral No growth in 3 days Anaerobic Blood Culture - Preliminary No growth in 3 days 01/26/18 06:50 Aerobic Blood Culture - Preliminary Blood - Peripheral No growth in 3 days Anaerobic Blood Culture - Preliminary No growth in 3 days - Impressions ITS Impressions Chest CTA 01/26/18 07:47 CONCLUSION: 1. Limited examination. No large or central pulmonary embolus identified. 2. Interval development of bibasilar consolidated infiltrates. Exam is concerning for a pneumonia. 3. There are surgical clips at the right lung apex suggesting the patient has undergone previous lobectomy. 4. Consolidation and parenchymal opacification at the right lung apex worsened compared to previous CT of 01/05/2018. Chest X-Ray 01/27/18 05:00 CONCLUSION: Stable exam compared with January 26. Discharge Plan - Discharge Disposition Patient Disposition: Disch W/Home Health Service - Discharge Condition Condition: Stable - Discharge Order Discharge Orders: Discharge Order (Routine); Ordered 01/30/18 Ordered By: Kirill Feliciano - Physicians Team Primary Care Provider: UNKNOWN, Attending Provider: Kirill Feliciano Other Providers: [employer]urance ; John Jiménez MD ; Yasemin Grimaldo MD ; Jose Lee MD
[2018-01-29] MEDS ORDERED: Heparin Central Flush 100 UNIT/ML 5 ML Vial IV.FLUSH PRN ×2 (15:15)
--- NOTE | 2018-01-29 15:26 | P.PNONC ---
Subjective Interval history: AFebrile Patient states her breathing is somewhat improved Ready to go home Objective Vital Signs/Intake & Output: Vital Signs 01/28/18 15:48 01/28/18 16:00 01/28/18 20:00 Temperature 98.4 F 98.1 F Pulse Rate 107 H 101 H Respiratory Rate 18 22 20 Blood Pressure 119/70 158/91 H Pulse Oximetry 94 L 99 01/28/18 20:18 01/28/18 23:01 01/29/18 00:00 Temperature 97.7 F Pulse Rate 107 H 102 H 103 H Respiratory Rate 22 18 20 Blood Pressure 144/86 H Pulse Oximetry 96 01/29/18 02:14 01/29/18 05:26 01/29/18 08:00 Temperature 98.0 F 98.5 F Pulse Rate 88 98 H Respiratory Rate 18 18 18 Blood Pressure 140/79 138/75 Pulse Oximetry 98 98 01/29/18 09:05 01/29/18 12:00 01/29/18 12:04 Temperature 97.6 F Pulse Rate 103 H 103 H Respiratory Rate 18 18 16 Blood Pressure 141/87 H Pulse Oximetry 95 98 Intake & Output 01/28/18 01/29/18 01/29/18 18:59 06:59 18:59 Intake Total 1050 / 1050 1480 / 1480 300 / 300 Output Total 450 / 450 Balance 1050 / 1050 1030 / 1030 300 / 300 Weight 176 lb 9.444 oz Intake: IV 350 / 350 1200 / 1200 300 / 300 NS Inj 1,000 ML @ 84 mls/hr IV. 1000 / 1000 200 / 200 CONT .[id number] [facility] Rx#:[id number] Azithromycin Inj 500 MG In NS 250 / 250 Inj 250 ML @ 250 mls/hr IV.SIG ONCE ONE Rx#:[id number] Maxipime Inj 2,000 MG In NS Inj 100 / 100 200 / 200 100 / 100 100 ML @ 200 mls/hr IV.SIG Q8H [facility] Rx#:[id number] Oral 700 / 700 280 / 280 Output: Urine 450 / 450 Other: # Voids 2 Date of Last Bowel Movement 01/26/18 # Bowel Movements 0 Result Diagrams: 01/27/18 03:28 01/27/18 03:28 Laboratory Results: Laboratory Results - last 24 hr 01/27/18 01/28/18 01/28/18 12:30 17:27 23:39 POC Glucose 266 H 258 H Urine Histoplasma Ag 0 U Histoplasma Ag Detec Negative 01/29/18 01/29/18 05:28 12:52 POC Glucose 206 H 150 H Urine Histoplasma Ag U Histoplasma Ag Detec Culture Results: Microbiology 01/29/18 08:00 Streptococcus pneumoniae Antigen (M - Final Urine - Catheterized Urine Presumptive negative for streptococcus pneumoniae antigen, suggesting no current or recent infection. Infection due to Streptococcus pneumoniae cannot be ruled out since the antigen present in the sample may be below the detection limit of the test. 01/29/18 08:00 Legionella Antigen - Final Urine - Catheterized Urine Presumptive negative for Legionella pneumophila serogroup 1 antigen in urine, suggesting no recent or recurrent infection. Infection due to Legionella cannot be ruled out since other serogroups and species may cause disease, antigen may not be present in urine in early infection, and the level of antigen present in the urine may be below the detection limit of the test. 01/26/18 06:45 Aerobic Blood Culture - Preliminary Blood - Peripheral No growth in 3 days Anaerobic Blood Culture - Preliminary No growth in 3 days 01/26/18 06:50 Aerobic Blood Culture - Preliminary Blood - Peripheral No growth in 3 days Anaerobic Blood Culture - Preliminary No growth in 3 days Medications: Active Medications Generic Name Dose Route Start Last Admin Trade Name Freq PRN Reason Stop Dose Admin Albuterol 1 ampul 01/26/18 12:00 01/29/18 12:00 Duoneb Neb (Diana) NEB 1 ampul Q4HR NEB DIANA Administration Budesonide 0.5 mg 01/27/18 21:00 01/29/18 12:00 Pulmocort Respule Neb NEB 0.5 mg BID NEB DIANA Administration Chlorhexidine Gluconate 3 pack 01/27/18 04:00 01/29/18 05:28 Chlorhexidine 2% Cloth TOPICAL 02/01/18 03:59 Not Given DAILY@0400 [facility] Enoxaparin Sodium 40 mg 01/26/18 11:13 01/29/18 09:05 Lovenox Inj SQ 40 mg DAILY DIANA Administration Famotidine 20 mg 01/28/18 21:00 01/28/18 20:29 Pepcid PO 20 mg HS DIANA Administration Hydromorphone HCl 2 mg 01/28/18 13:52 01/29/18 15:08 Dilaudid Pf Inj IV.PUSH 2 mg Q4H PRN Administration BREAKTHROUGH PAIN Sodium Chloride 1,000 mls @ 84 mls/hr 01/26/18 10:15 01/29/18 09:06 Ns Inj IV.CONT 84 mls/hr .[id number] DIANA Administration Ibuprofen 800 mg 01/28/18 18:32 01/29/18 07:50 Motrin PO 800 mg Q8H PRN Administration HEADACHE Insulin Human Regular 0 units 01/26/18 12:00 01/29/18 12:56 Novolin R Correctional Sugar Inj SQ Not Given Q6HR [facility] Protocol Lactulose 30 ml 01/26/18 21:00 01/29/18 09:05 Lactulose Liq PO Not Given BID [facility] Levothyroxine Sodium 200 mcg 01/28/18 06:00 01/29/18 05:29 Synthroid PO 200 mcg DAILY@0600 DIANA Administration Ondansetron HCl 4 mg 01/26/18 10:11 01/27/18 12:24 Zofran Inj IV.PUSH 4 mg Q6H PRN Administration NAUSEA OR VOMITING Oxycodone HCl 80 mg 01/26/18 22:00 01/29/18 13:42 Oxycontin Cr PO 80 mg Q8HR [facility] Administration Polyethylene Glycol 17 gm 01/26/18 21:00 01/29/18 09:04 Miralax PO 17 gm BID DIANA Administration Prednisone 20 mg 01/28/18 21:00 01/29/18 09:04 Deltasone PO 20 mg BID DIANA Administration Senna/Docusate Sodium 1 tab 01/26/18 21:00 01/29/18 09:04 Tiffanie-Colace PO 1 tab BID DIANA Administration Sodium Chloride 2 ml 01/26/18 06:48 01/26/18 09:52 Ns Flush IV.FLUSH 2 ml UNSCH PRN Administration FLUSH AFTER USING IV ACCESS Zolpidem Tartrate 10 mg 01/27/18 21:00 01/28/18 23:38 Ambien PO 10 mg HS DIANA Administration Objective Remarks: GENERAL: Well-nourished, heavyset. Well-developed patient. SKIN: Warm and dry. Significant left arm lymphedema HEAD: Normocephalic. EYES: No scleral icterus. No injection or drainage. NECK: Supple, trachea midline. No JVD or lymphadenopathy. LYMPHATIC: No adenopathy. CARDIOVASCULAR: Regular rate and rhythm without murmurs. RESPIRATORY: Coarse rhonchi both lungs. No accessory muscle use. GASTROINTESTINAL: Abdomen soft, non-tender, nondistended. EXTREMITIES: No cyanosis, or edema. MUSCULOSKELETAL: Adequate muscle tone. NEUROLOGICAL: No obvious focal deficit. Awake, alert, and oriented x3. Assessment/Plan (1) Metastatic breast cancer Code(s): C50.919 - Malignant neoplasm of unspecified site of unspecified female breast Status: Chronic (2) Chronic pain due to malignant neoplastic disease Code(s): G89.3 - Neoplasm related pain (acute) (chronic) Status: Chronic (3) Anxiety Code(s): F41.9 - Anxiety disorder, unspecified Status: Chronic - Plan 63-year-old woman well-known patient with history of metastatic/metaplastic breast cancer. She had a right upper lung recurrence that was treated with chemotherapy and radiation. She was maintained on maintenance chemotherapy [place] for several years until stopping due to toxicity May of this year. 1. Patient will follow up with oncology in several weeks. 2. She will follow-up with her occupational therapist for treatment of left arm lymphedema after discharge 3. We reviewed her most recent scans show no evidence of recurrent or metastatic disease 4. Dr. pisano will continue to manage the pneumonia. She has an appointment 1 week after discharge.
--- NOTE | 2018-01-29 16:13 | P.PN ---
Subjective Interval history: Follow-up COPD and pneumonia. Discharge canceled when she developed dyspnea trying to get ready for discharge. She did not want to leave Physical Exam Vital signs: Vital Signs 01/28/18 20:00 01/28/18 20:18 01/28/18 23:01 Temperature 98.1 F Pulse Rate 101 H 107 H 102 H Respiratory Rate 20 22 18 Blood Pressure 158/91 H Pulse Oximetry 99 01/29/18 00:00 01/29/18 02:14 01/29/18 05:26 Temperature 97.7 F 98.0 F Pulse Rate 103 H 88 Respiratory Rate 20 18 18 Blood Pressure 144/86 H 140/79 Pulse Oximetry 96 98 01/29/18 08:00 01/29/18 09:05 01/29/18 12:00 Temperature 98.5 F 97.6 F Pulse Rate 98 H 103 H Respiratory Rate 18 18 18 Blood Pressure 138/75 141/87 H Pulse Oximetry 98 95 01/29/18 12:04 Temperature Pulse Rate 103 H Respiratory Rate 16 Blood Pressure Pulse Oximetry 98 Intake & Output 01/28/18 01/29/18 01/29/18 18:59 06:59 18:59 Intake Total 1050 / 1050 1480 / 1480 300 / 300 Output Total 450 / 450 Balance 1050 / 1050 1030 / 1030 300 / 300 Weight 80.1 kg Intake: IV 350 / 350 1200 / 1200 300 / 300 NS Inj 1,000 ML @ 84 mls/hr IV. 1000 / 1000 200 / 200 CONT .[id number] [facility] Rx#:[id number] Azithromycin Inj 500 MG In NS 250 / 250 Inj 250 ML @ 250 mls/hr IV.SIG ONCE ONE Rx#:[id number] Maxipime Inj 2,000 MG In NS Inj 100 / 100 200 / 200 100 / 100 100 ML @ 200 mls/hr IV.SIG Q8H [facility] Rx#:[id number] Oral 700 / 700 280 / 280 Output: Urine 450 / 450 Other: # Voids 2 Date of Last Bowel Movement 01/26/18 # Bowel Movements 0 Narrative: GENERAL: Middle-age female, lying in bed on nasal cannula HEENT: Normocephalic. Atraumatic. Pupils equal, round, reactive, conjugate. Mucous membranes are moist CHEST: Equal chest rise. Unlabored. Decreased breath sounds left lung. Scattered rhonchi right lung CARDIOVASCULAR: Normal rate, regular rhythm. Sinus. ABDOMEN: Soft, nontender, nondistended. No guarding. MUSCULOSKELETAL: Pulses 2+. No peripheral edema. NEUROLOGICAL: RASS 0. CAM -. Follows commands. No focal deficits. - Urinary Catheter Management Indwelling Urethral Catheter Cath placed during this visit: yes, but has since been removed by the nurse Reason for continuing: Decision to DC catheter Insertion date: 01/26/18 Insertion time: 06:50 Removal date: 01/27/18 Removal time: 16:15 Results - Labs CBC & Chem 7: 01/27/18 03:28 01/27/18 03:28 Laboratory Results - last 24 hr 01/27/18 01/28/18 01/28/18 12:30 17:27 23:39 POC Glucose 266 H 258 H Urine Histoplasma Ag 0 U Histoplasma Ag Detec Negative 01/29/18 01/29/18 05:28 12:52 POC Glucose 206 H 150 H Urine Histoplasma Ag U Histoplasma Ag Detec Microbiology 01/29/18 08:00 Urine - Catheterized Urine Streptococcus pneumoniae Antigen ( M - Final Presumptive negative for streptococcus pneumoniae antigen, suggesting no current or recent infection. Infection due to Streptococcus pneumoniae cannot be ruled out since the antigen present in the sample may be below the detection limit of the test. 01/29/18 08:00 Urine - Catheterized Urine Legionella Antigen - Final Presumptive negative for Legionella pneumophila serogroup 1 antigen in urine, suggesting no recent or recurrent infection. Infection due to Legionella cannot be ruled out since other serogroups and species may cause disease, antigen may not be present in urine in early infection, and the level of antigen present in the urine may be below the detection limit of the test. 01/26/18 06:45 Blood - Peripheral Aerobic Blood Culture - Preliminary No growth in 3 days 01/26/18 06:45 Blood - Peripheral Anaerobic Blood Culture - Preliminary No growth in 3 days 01/26/18 06:50 Blood - Peripheral Aerobic Blood Culture - Preliminary No growth in 3 days 01/26/18 06:50 Blood - Peripheral Anaerobic Blood Culture - Preliminary No growth in 3 days - Procedures none Assessment and Plan - Assessment (1) Pneumonia Code(s): J18.9 - Pneumonia, unspecified organism Status: Acute - Plan 63-year-old female with prior history of breast cancer, now in remission, with residual SVC syndrome, chronic lymphedema, and 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 Acute hypoxemia. Improving Exacerbation of chronic underlying lung disease. Improved with good exercise tolerance Community acquired pneumonia with sepsis. Stable resolved sepsis - Wean po steroids - nebs - wean o2 for goal spo2 > 90% - Discontinue cefepime, azithromycin switch to p.o. Augmentin - influenza swab, nursing requested to submit specimen - Negative urine histo, legionella, pneumococcal Ag - Ordered sputum culture, negative blood cultures - Physical therapy increase activity as tolerated History of breast cancer - followed extensively by Dr. Grimaldo Chronic pain syndrome - takes oxycodone 90mg po 4-5x a day - will split this into oxycontin 80mg q8h and oxycodone 20mg po q4h prn. Hyperglycemia on steroids history of diabetes mellitus latest A1c 7 -Monitor fingersticks with sliding scale coverage advance diet as tolerated SCDs Lovenox pepcid Discharge Planning: possible dc in am (1) Pneumonia Qualifiers: Pneumonia type: due to unspecified organism Laterality: unspecified laterality Lung location: unspecified part of lung Qualified Code(s): J18.9 - Pneumonia, unspecified organism
[2018-01-29] MEDS: Famotidine 20 MG Tablet PO SCH (22:26)
[2018-01-29] MEDS: Amoxicillin/Clavulanate 875/125 MG Tablet PO SCH (22:26)
[2018-01-30 00:14] VITALS: BP 143/85; TEMP 98.9; O2SAT 95
[2018-01-30] MEDS: HYDROmorphone PF Inj 2 MG/ML Vial IV.PUSH PRN ×3 (00:45→09:35)
[2018-01-30] MEDS: Sod Chloride 0.9% Inj 1,000 ML IV.CONT SCH ×2 (01:57→09:36)
[2018-01-30] MEDS: Insulin NovoLIN Regular Correctional Sugar Inj SQ SCH ×3 (01:59→11:51)
[2018-01-30] MEDS: Chlorhexidine Gluconate 2% 1 Pack (2 Cloths) TOPICAL SCH (04:04)
[2018-01-30 05:03] VITALS: PULSE 97; RESP 16
[2018-01-30] MEDS: oxyCODONE HCL 80 MG Controlled Release Tablet PO SCH (05:27)
[2018-01-30] MEDS ORDERED: FLUTICASONE UMECLIDIN VILANTER INH SCH (09:00)
[2018-01-30] MEDS: predniSONE 10 MG Tablet PO SCH (09:34)
[2018-01-30] MEDS: Amoxicillin/Clavulanate 875/125 MG Tablet PO SCH (09:34)
[2018-01-30] MEDS: Enoxaparin Inj 60 MG/0.6 ML Syringe SQ SCH (09:35)
[2018-01-30] MEDS: Polyethylene Glycol 3350 17 GM Packet PO SCH (09:35)
[2018-01-30] MEDS: Senna/Docusate Sodium 8.6/50 MG Tablet PO SCH (09:36)
== END 2018-01-30 12:33 | disposition home health service (06) ==
LOC: NEPE 06:38 → NEDA 10:10 → HIMC 12:25 → NEDA 12:26 → HIMC 19:20 → H7ONC 01-27 16:30 → N07 01-29 17:41
PROVIDERS: ADMIT Internal Medicine; ATTEND Internal Medicine